=== PATIENT | male | born 1960 | race Hispanic/Latino ===

== ENCOUNTER 2018-07-01 12:38 | Emergency (ER) | payer OTHER, SELFPAY ==
[2018-07-01 13:01] LABS: #Basophils 0.1 thou/uL (0.0-0.2); #Eosinphils 0.1 thou/uL (0.0-0.7); #Monocytes 0.5 thou/uL (0.11-0.59); %Lymphocytes 30.6 % (21.0-51.0); %Monocytes 7.2 % (0.0-10.0); %Neutrophils 60.1 % (42.0-75.0); Hemoglobin 16.5 g/dL (14.0-18.0); Mean Corpuscular HGB CONC 34.3 g/dL (32.0-36.0); Mean Corpuscular Hemoglobin 32.3 pg (27.0-31.0); Mean Corpuscular Volume 94.2 fL (78.0-98.0); Mean Platelet Volume 8.1 fL (7.4-10.4); Platelet Count 214 thou/uL (130-400); RBC Distribution Width 12.7 % (11.5-14.5); White Blood Cell (WBC) Count 6.6 thou/uL (4.8-10.8)
[2018-07-01] MEDS ORDERED: Acetaminophen 325 MG TAB ONE (13:13)
[2018-07-01] MEDS ORDERED: Ibuprofen 800 MG TAB ONE (13:13)
--- NOTE | 2018-07-01 13:22 | RAD ---
CHEST 1 VIEW: Date: 07/01/18 HISTORY: Anxiety. COMPARISON: None. FINDINGS: Normal cardiac silhouette. Pulmonary vessels and hilum are normal. Costophrenic angles are clear. No masses or consolidation. No pneumothorax or osseous abnormalities. IMPRESSION: No acute cardiopulmonary process. POS: [facility]
--- NOTE | 2018-07-01 13:46 | CT ---
NONCONTRAST CT HEAD: Date: 07/01/18 HISTORY: Headache and chest pain. COMPARISON: None available. FINDINGS: There is no evidence of a hemorrhage, acute infarction, mass effect, or midline shift. The ventricula r system is normal in size, shape, and position. There is minimal mucosal thickening seen in a few ethmoidal air cells bilaterally. The mastoid air ce lls are clear. Calvarial structures are intact. IMPRESSION: No acute intracranial abnormality is demonstrated. POS: [facility]
[2018-07-01 13:58] LABS: ALT (SGPT) 50 U/L (8-55); AST (SGOT) 50 U/L (5-34); Albumin 4.8 g/dL (3.5-5.0); Alkaline Phosphatase 88 U/L (40-150); Anion Gap 20 mmol/L (10-20); BUN (Urea Nitrogen) 8 mg/dL (8.4-25.7); Bilirubin, Total 0.6 mg/dL (0.2-1.2); Calc. Creatinine Clearance 0 mL/min (70-130); Carbon Dioxide 20 mmol/L (22-29); Chloride 99 mmol/L (98-107); Estimated GFR-MDRD Greater than 90; Globulin 3.6 g/dL (2.4-3.5); Glucose 92 mg/dL (70-105); Potassium 3.9 mmol/L (3.5-5.1); Protein, Total 8.4 g/dL (6.0-8.3); Sodium 135 mmol/L (136-145)
[2018-07-01 14:02] LABS: Amphetamine Not Detected (NotDetected); Barbiturates Screen Not Detected (NotDetected); Benzodiazepine Screen Not Detected (NotDetected); Cocaine Metabolite Screen Not Detected (NotDetected); Medtox Control Line Valid? VALID (VALID); Medtox Reader # READER 1; Methadone Not Detected (NotDetected); Methamphetamine Not Detected (NotDetected); Opiate Screen Not Detected (NotDetected); Oxycodone Screen Not Detected (NotDetected); Phencyclidine (PCP) Not Detected (NotDetected); THC/Cannabinoid Screen Not Detected (NotDetected); Tricyclic Screen Not Detected (NotDetected)
[2018-07-01 14:52] LABS: Acetaminophen Less than 6.0 mcg/mL (10.0-30.0); Alcohol 278 mg/dL (Less than 10); Lipase 34 U/L (8-78); Salicylate Less than 8.0 mg/dL (15.0-30.0)
== END 2018-07-01 13:28 | disposition home or self-care (01) ==
LOC: ERS 12:38
DX: F10.10 Alcohol abuse, uncomplicated (principal); F17.200 Nicotine dependence, unspecified, uncomplicated
CPT/HCPCS: 70450; 71045; 80053; 80306; 80307; 83690; 84484; 85025; 93005; 96360

== ENCOUNTER 2018-07-06 15:45 | Inpatient (IN) | payer OTHER, SELFPAY ==
[~2018-07-06 15:45] MED LIST: ISOVUE-370 76%-LOCM 1 ML ONE
[2018-07-06] MEDS ORDERED: Ondansetron PF 4 MG/2 ML Vial ONE (16:00)
[2018-07-06] MEDS ORDERED: Ketorolac Tromethamine 30 MG/ML VIAL ONE (16:08)
[2018-07-06 16:30] LABS: #Basophils 0.1 thou/uL (0.0-0.2); #Eosinphils 0.1 thou/uL (0.0-0.7); #Lymphocytes 1.4 thou/uL (1.20-3.40); #Monocytes 0.3 thou/uL (0.11-0.59); #Neutrophils 5.1 thou/uL (1.40-6.50); %Basophils 0.8 % (0.0-1.0); %Eosinophils 0.7 % (0.0-10.0); %Monocytes 4.7 % (0.0-10.0); %Neutrophils 73.7 % (42.0-75.0); Mean Corpuscular HGB CONC 33.3 g/dL (32.0-36.0); Mean Corpuscular Hemoglobin 32.1 pg (27.0-31.0); Mean Corpuscular Volume 96.5 fL (78.0-98.0); Mean Platelet Volume 8.2 fL (7.4-10.4); Platelet Count 142 thou/uL (130-400); RBC Distribution Width 13.1 % (11.5-14.5); Red Blood Cell (RBC) Count 4.67 mill/uL (4.70-6.10)
[2018-07-06 16:46] LABS: INR-International Normal Ratio 0.9; Prothrombin Time 12.7 SEC (12.0-14.7)
[2018-07-06 16:49] LABS: ALT (SGPT) 71 U/L (8-55); AST (SGOT) 55 U/L (5-34); Albumin 4.2 g/dL (3.5-5.0); Alcohol 262 mg/dL (Less than 10); Alkaline Phosphatase 86 U/L (40-150); Anion Gap 16 mmol/L (10-20); BUN (Urea Nitrogen) 5 mg/dL (8.4-25.7); Bilirubin, Total 0.4 mg/dL (0.2-1.2); Calc. Creatinine Clearance 0 mL/min (70-130); Calcium 8.8 mg/dL (7.8-10.44); Carbon Dioxide 25 mmol/L (22-29); Chloride 98 mmol/L (98-107); Estimated GFR-MDRD Greater than 90; Globulin 3.3 g/dL (2.4-3.5); Glucose 132 mg/dL (70-105); Lipase 276 U/L (8-78); Potassium 3.5 mmol/L (3.5-5.1); Protein, Total 7.5 g/dL (6.0-8.3); Sodium 135 mmol/L (136-145)
[2018-07-06 16:58] LABS: Bilirubin Negative (Negative); Blood, Urine Negative (Negative); Clarity CLEAR (Clear); Glucose, Urine (Dipstick) Negative (Negative); Leukocyte Negative (Negative); Nitrite Negative (Negative); Protein, Urine (Dipstick) Trace mg/dL (Neg-Trace); Urobilinogen 0.2 mg/dL (0.2-1.0)
[2018-07-06] MEDS ORDERED: Morphine 4 MG/ML VIAL ONE (17:26)
[2018-07-06] MEDS ORDERED: Ondansetron ODT 4 MG TAB SL PRN (19:40)
[2018-07-06] MEDS ORDERED: Sodium Chloride 0.9% 1,000 ML IV SCH (19:40)
[2018-07-06] MEDS ORDERED: Ondansetron PF 4 MG/2 ML Vial IVP PRN (19:40)
[2018-07-06] MEDS ORDERED: Acetaminophen 650 MG Suppository PR PRN (19:44)
[2018-07-06] MEDS ORDERED: Ondansetron ODT 4 MG TAB PO PRN (19:44)
[2018-07-06] MEDS ORDERED: Senokot S 8.6-50 MG TAB PO PRN (19:44)
[2018-07-06] MEDS ORDERED: Guaifenesin DM 100-10/5 ML UDCUP PO PRN (19:44)
[2018-07-06] MEDS ORDERED: Acetaminophen 325 MG TAB PO PRN (19:44)
[2018-07-06] MEDS ORDERED: Diazepam 5 MG TAB PO PRN (19:49)
[2018-07-06] MEDS ORDERED: Thiamine HCl 200 MG/2 ML VIAL IM SCH (20:00)
[2018-07-06] MEDS ORDERED: Pantoprazole 40 MG VIAL IVP SCH (20:00)
[2018-07-06] MEDS ORDERED: Diazepam 5 MG TAB PO SCH (20:00)
[2018-07-06] MEDS: Sodium Chloride 0.9% 1,000 ML IV SCH (20:33)
[2018-07-06] MEDS: Ketorolac Tromethamine 30 MG/ML VIAL IVP PRN (20:39)
[2018-07-06] MEDS: Ondansetron PF 4 MG/2 ML Vial IVP PRN (20:39)
[2018-07-06 21:03] VITALS: BMI 26.4
[2018-07-06 21:18] LABS: Amphetamine Not Detected (NotDetected); Barbiturates Screen Not Detected (NotDetected); Benzodiazepine Screen Detected (NotDetected); Cocaine Metabolite Screen Not Detected (NotDetected); Medtox Reader # READER 4; Methadone Not Detected (NotDetected); Methamphetamine Not Detected (NotDetected); Opiate Screen Detected (NotDetected); Oxycodone Screen Not Detected (NotDetected); Phencyclidine (PCP) Not Detected (NotDetected); THC/Cannabinoid Screen Not Detected (NotDetected); Tricyclic Screen Not Detected (NotDetected)
[2018-07-06 21:24] LABS: Medtox Control Line Valid? VALID (VALID)
--- NOTE | 2018-07-06 22:15 | CT ---
CT ABDOMEN AND PELVIS WITH CONTRAST: 07/06/18 Multiple axial tomograms obtained through the abdomen and pelvis with IV enhancement. INDICATIONS: Abdominal pain. Nausea, vomiting. No comparison. IMPRESSION: Acute pancreatitis. FINDINGS: Lung bases clear. Liver shows evidence of fatty infiltration with low attenuation. There is a 1 cm low density focus in the left lobe of the liver probably representing small hepatic cyst; however, followup is recommende d or confirmation of cystic character with ultrasound is recommended. There is mildly distended gallb ladder. Consider gallbladder ultrasound to rule out gallstones. Spleen unremarkable. There is a small fixed sliding diaphragmatic hernia. There is abnormal density involving the wall of the distal esophagus at the EG junction with abnormal density involving the wall of the stomach at th e cardia extending from the EG junction. This finding is very suspicious for neoplasm. Recommend endo scopy. There is inflammatory haziness surrounding the neck and head of the pancreas consistent with the hist ory of pancreatitis. The gallbladder is mildly distended. No evidence of pericholecystic inflammation. Gallstones may not be apparent on CT. Adrenal glands and kidneys unremarkable. Bowel loops unremarkable. Appendix appears normal. Images th rough pelvis unremarkable. Aorta normal caliber. IMPRESSION: 1. Small fixed sliding diaphragmatic hernia. Abnormal mural thickening involving the distal esop hagus at the EG junction with abnormal density extending into the wall of the cardia of the stomach. Neoplasm should be excluded. Recommend endoscopy. 2. Inflammatory haziness surrounding the head and neck of the pancreas consistent with acute weldon creatitis. 3. Evidence of fatty infiltration of the liver. Tiny low density lesion in the left lobe of the liver probably cyst. POS: [facility]
[2018-07-06] MEDS: Morphine 4 MG/ML VIAL SLOW IVP PRN (23:50)
--- NOTE | 2018-07-07 00:46 | HP ---
PRIMARY CARE PHYSICIAN: Ally Mclean. CHIEF COMPLAINT: Abdominal pain, nausea, and vomiting. HISTORY OF PRESENT ILLNESS: This is a 57-year-old male who comes in with history of nausea, vomiting, and abdominal pain. The patient's history is variable every time he talks to different people, so it is hard to know exactly what the truth of it is, but he was seen in our emergency room 5 days ago. At that time, he was complaining of feeling shaky and feeling anxious and was asking for medication for shakiness. He had fluids in the emergency room, felt better, and was discharged home with a Librium taper to try and get him off alcohol. At that time, he reportedly had been drinking heavily for about 3 days and it stopped before came in. He had a negative lipase at that time. His alcohol level is 278, and he had a negative urine drug screen at that time as well. The patient came back in today reporting that he has had worsening abdominal pain. He thinks the pain has been going on now for 5 days or so, but getting worse over the last couple of days. He said he has had some nausea and vomiting, maybe 6 or 7 times today or yesterday, he was not able to say it specifically. The patient reports to me that he bought a 12 pack of beer and started drinking it over the weekend and that he did not regularly drink alcohol, reportedly he had 5 drinks today. Stated he started drinking alcohol a week ago, he does not know why, he cannot give a reason why he suddenly started drinking so much. In the emergency room, he was found to have a new elevation in his lipase compared to last time. Lipase now up to 276. Alcohol level remains about 262. He did report drinking about 5 beers today. The rest of his lab work was fairly unremarkable. His AST and ALT were minimally elevated at 55 and 71. Creatine kinase was 369. The patient got a dose of Toradol and a dose of morphine in the emergency room. He still complains of severe abdominal pain and is asking for more pain medication right now, though he appeared comfortably sleeping on the bed before I entered the room. PAST MEDICAL HISTORY: None. PAST SURGICAL HISTORY: None. PSYCHIATRIC HISTORY: None. SOCIAL HISTORY: See HPI. The patient currently smokes cigarettes and denies illicit drug use. He is . He states his lives in [place]. He lives with some people here he is not related to. FAMILY HISTORY: No known medical problems in his family. ALLERGIES: NO KNOWN DRUG ALLERGIES. CURRENT MEDICATIONS: None. REVIEW OF SYSTEMS: CONSTITUTIONAL: The patient answered yes to almost every review of systems question. Constitutionally, he does report some chills and thinks he had a fever earlier. He reports blurred vision and maybe some double vision. ENT: He reports nasal drainage, sore throat, and congestion. CARDIOVASCULAR: He reports chest pains on and off. PULMONARY: He reports coughing productive of green mucus for unknown period of time and some shortness of breath. GASTROINTESTINAL: See HPI. He reports alternating diarrhea and constipation, but no hematochezia. GENITOURINARY: No dysuria or hematuria. MUSCULOSKELETAL: He reports generalized muscle aches and joint pains over his whole body. SKIN: No rashes or lesions noted. NEUROLOGIC: He reports numbness and tingling in both hands. PHYSICAL EXAMINATION: VITAL SIGNS: Blood pressure 146/105, pulse 91, respirations 16, temperature 98.3, and O2 saturation 97% on room air. GENERAL: This is a well-developed, obese, male, in no acute distress, lying there until I started talking to him, then he started complaining of severe pain, would wince with pain at the time I got near his abdomen even before I would touch it. HEENT: Pupils equal, round, and reactive to light. Oropharynx clear without lesions, erythema, or exudate. The patient smells heavily of alcohol. HEART: Regular rate and rhythm. No murmurs, rubs, or gallops. LUNGS: Clear to auscultation bilaterally. No wheezes, crackles, or rhonchi. NECK: Supple. No lymphadenopathy. No thyroid nodules or enlargement. No JVD. ABDOMEN: Soft. He has severe tenderness to palpation in the epigastric region, though he reports pain with palpation everywhere. He does have some guarding in the midepigastric region. No rebound tenderness. He has normoactive bowel sounds. No masses palpable. EXTREMITIES: No clubbing, cyanosis, or edema. Good peripheral pulses. SKIN: No rashes or lesions noted. NEUROLOGIC: He appears to have intact strength in all extremities. No facial droop. PSYCHIATRIC: The patient is alert and oriented x3. LABORATORY DATA: CBC grossly normal. Coagulation profile normal. Complete metabolic panel notable for a sodium of 135, AST 55, ALT 71, the rest is relatively normal. Lipase was 276 today. Creatine kinase 369. Brain natriuretic peptide was negative. Urinalysis was negative for infection. Plasma alcohol was 262. The patient did have a chest x-ray and brain CT done in his ER visit 5 days ago. Chest x-ray was negative for infection. CT of the brain showed no acute intracranial abnormalities. ASSESSMENT: 1. Acute pancreatitis with severe abdominal pain. Uncertain if the patient is able to give a reliable history at this point, however, given the severity of his pain that he is reporting, I will go ahead and get a CT of the abdomen with contrast to make sure he does not have any evidence of pseudocyst in the pancreas or evidence of necrosis or significant infection that would require antibiotics. For now, we will keep him n.p.o. We will give IV fluids. We will give IV pain medications and we will consult Gastroenterology in the morning. 2. Alcohol abuse. The patient is likely a chronic alcoholic, though his history is not consistent between providers and with his physical findings. I will go ahead and put him on ASE protocol to make certain that any withdrawal symptoms are treated and we will give him vitamin supplementation. 3. Gastrointestinal prophylaxis. Put the patient on Protonix daily IV for now. 4. Deep venous thrombosis prophylaxis. Put the patient on Lovenox subcu and sequential compression devices. 5. Code status. The patient is a full code. Should he be incapacitated, his would be his medical decision maker, her name is Simran Moser. Job ID: [id number]
[2018-07-07] MEDS ORDERED: Diazepam 5 MG TAB PO PRN (04:00)
[2018-07-07] MEDS: Ondansetron PF 4 MG/2 ML Vial IVP PRN ×2 (04:31→16:30)
[2018-07-07] MEDS: Ketorolac Tromethamine 30 MG/ML VIAL IVP PRN ×4 (04:31→23:31)
[2018-07-07 05:27] LABS: #Eosinphils 0.1 thou/uL (0.0-0.7); #Lymphocytes 1.2 thou/uL (1.20-3.40); #Monocytes 0.3 thou/uL (0.11-0.59); %Basophils 0.5 % (0.0-1.0); %Eosinophils 0.9 % (0.0-10.0); %Lymphocytes 12.4 % (21.0-51.0); %Monocytes 3.2 % (0.0-10.0); Hemoglobin 13.6 g/dL (14.0-18.0); Mean Corpuscular HGB CONC 33.2 g/dL (32.0-36.0); Mean Corpuscular Volume 96.4 fL (78.0-98.0); Mean Platelet Volume 8.8 fL (7.4-10.4); Platelet Count 116 thou/uL (130-400); Platelet Morphology Comment Appears Decreased; RBC Distribution Width 13.1 % (11.5-14.5); Red Blood Cell (RBC) Count 4.26 mill/uL (4.70-6.10); White Blood Cell (WBC) Count 9.6 thou/uL (4.8-10.8)
[2018-07-07 05:37] LABS: Anion Gap 12 mmol/L (10-20); BUN (Urea Nitrogen) 7 mg/dL (8.4-25.7); Calc. Creatinine Clearance 117 mL/min (70-130); Calcium 8.3 mg/dL (7.8-10.44); Carbon Dioxide 26 mmol/L (22-29); Chloride 101 mmol/L (98-107); Estimated GFR-MDRD Greater than 90; Glucose 134 mg/dL (70-105); Potassium 3.6 mmol/L (3.5-5.1); Sodium 135 mmol/L (136-145)
[2018-07-07] MEDS: Sodium Chloride 0.9% 1,000 ML IV SCH ×3 (06:22→17:07)
[2018-07-07] MEDS: Multivitamin W/ Minerals 1 TAB PO SCH (07:46)
[2018-07-07] MEDS: Folic Acid 1 MG TAB PO SCH (07:46)
[2018-07-07] MEDS: Thiamine 100 MG TAB PO SCH (07:46)
[2018-07-07] MEDS: Magnesium Oxide 400 MG TAB PO SCH (07:46)
[2018-07-07] MEDS: Morphine 4 MG/ML VIAL SLOW IVP PRN ×4 (07:47→21:56)
[2018-07-07] MEDS: Pantoprazole 40 MG VIAL IVP SCH (07:48)
[2018-07-07] MEDS: Enoxaparin Sodium 40 MG/0.4 ML SYRINGE SC SCH (08:09)
--- NOTE | 2018-07-07 09:14 | PDOC.PN ---
- Subjective Encounter Start Date: 07/07/18 Encounter Start Time: 12:00 Subjective: Patient didn't sleep well last night. States abdominal pain is -: even worse. No N/V. No fever. Mild shakiness. - Objective Resuscitation Status - Order Detail: 07/06/18 18:41 Resuscitation Status Routine Resuscitation Status: FULL: Full Resuscitation MAR Reviewed: Yes Vital Signs & Weight: Vital Signs (12 hours) Temp Pulse Resp BP BP BP Pulse Ox 07/07/18 06:57 98 F 80 20 167/93 H 96 07/07/18 06:00 98.6 F 95 20 159/86 H 159/86 H 07/07/18 02:33 98.8 F 95 20 167/84 H 95 07/07/18 02:30 167/84 H Weight Weight 168 lb 9 oz Result Diagrams: 07/07/18 04:22 07/07/18 04:22 Phys Exam - Physical Examination Constitutional: NAD HEENT: moist MMs Respiratory: no wheezing, no rales, no rhonchi Cardiovascular: RRR, no significant murmur Gastrointestinal: soft, positive bowel sounds TTP, mostly in JENNIFER, LUQ Musculoskeletal: no edema Neurological: non-focal, moves all 4 limbs mild shakiness of hands Psychiatric: normal affect, A&O x 3 Dx/Plan (1) Acute alcoholic pancreatitis Code(s): K85.20 - ALCOHOL INDUCED ACUTE PANCREATITIS WITHOUT NECROSIS OR INFCT Status: Acute Qualifiers: Acute pancreatitis complication: no infection or necrosis Qualified Code(s) : K85.20 - Alcohol induced acute pancreatitis without necrosis or infection Comment: uncomplicated, continue bowel rest, recheck lab, GI consult pending (2) Esophageal abnormality Code(s): K22.9 - DISEASE OF ESOPHAGUS, UNSPECIFIED Status: Acute Comment: density at GE junction into wall of cardia of stomach, concern for possible neoplasm, needs EGD eventually (3) Alcohol abuse Code(s): F10.10 - ALCOHOL ABUSE, UNCOMPLICATED Status: Acute Comment: ASE protocol for any withdrawal symptoms, UDS with only meds given here (4) Fatty liver Code(s): K76.0 - FATTY (CHANGE OF) LIVER, NOT ELSEWHERE CLASSIFIED Status: Acute Comment: likely due to alcohol abuse - Plan cont current plan of care, DVT proph w/lovenox, DVT proph w/SCDs * . - Discharge Day Encounter end time: 12:10
[2018-07-07] MEDS ORDERED: Melatonin 3 MG TAB PO PRN (12:45)
[2018-07-08] MEDS: Sodium Chloride 0.9% 1,000 ML IV SCH ×3 (02:32→22:59)
[2018-07-08] MEDS: Morphine 4 MG/ML VIAL SLOW IVP PRN (03:35)
[2018-07-08] MEDS: Ketorolac Tromethamine 30 MG/ML VIAL IVP PRN ×2 (06:06→15:22)
[2018-07-08] MEDS: Pantoprazole 40 MG VIAL IVP SCH (07:49)
[2018-07-08] MEDS: Enoxaparin Sodium 40 MG/0.4 ML SYRINGE SC SCH ×2 (07:50→13:40)
--- NOTE | 2018-07-08 08:37 | CON ---
DATE OF CONSULTATION: 07/07/2018 REASON FOR CONSULTATION: Abdominal pain, nausea, vomiting, and acute pancreatitis. HISTORY OF PRESENT ILLNESS: Javid Moser is a 57-year-old Latin-[place] male, hospitalized in the ER with abdominal pain, nausea, and vomiting. The patient was found to have evidence of acute pancreatitis in the ER. He was sent for abdominal CAT scan. The CAT scan of the abdomen shows fatty liver and also peripancreatic inflammatory changes. Also some questionable mass or tiny density lesion in the GE junction on the gastric body. The patient at this time is n.p.o. He is currently having some abdominal pain, but no nausea, no vomiting. He is on IV morphine. Although he complains of abdominal pain, he appears very comfortable. He is somewhat worried about his clinical illness and keeps asking whether he has any cancer. The patient has no more nausea and no more vomiting. The patient tells me that he has been having abdominal pain over the last 5 days. Pain was in epigastric area, going towards the back. He has no nausea, vomiting to start with, but had vomiting yesterday. The patient admits to drinking two 6-packs of beer every day. In fact, serum alcohol level is 262. The patient drank 5 beers yesterday. No history of drug abuse. No past history of pancreatitis. He has no relevant history. ALLERGIES: NONE. SOCIAL HISTORY: The patient smokes one-half packet of cigarettes per day. He drinks alcohol, up to 6 packs of beer every day. No history of drug abuse. MEDICAL ILLNESSES: None. SURGERIES: None. NEUROPSYCHIATRY: No history of depression, anxiety. FAMILY HISTORY: Unremarkable. MEDICATIONS: None at home. REVIEW OF SYSTEMS: CONSTITUTIONAL: No history of weight loss. Has good energy and strength. No history of any fever or chills. HEENT: No double vision. No pain in eyes. No ear pain. No bleeding from ear or nose. THROAT: No dysphagia. No painful swallowing. LUNGS: No chronic coughing. No hemoptysis, dyspnea. CARDIOVASCULAR: No chest pain. No palpitations. No dyspnea, orthopnea, or PND. GASTROINTESTINAL: As in history of present illness. GENITOURINARY: Unremarkable. MUSCULOSKELETAL: Unremarkable. ENDOCRINE: Unremarkable. NEUROLOGIC: Unremarkable. PHYSICAL EXAMINATION: GENERAL: The patient appears very comfortable, having complaints of severe abdominal pain. He is in no distress. VITAL SIGNS: Stable. Afebrile. Pulse is 71, blood pressure is 176/93. HEENT: Conjunctivae clear. NECK: Supple. No adenitis or thyromegaly noted. CARDIOVASCULAR SYSTEM: First and second heart sounds heard. LUNGS: Clear to auscultation. ABDOMEN: Soft and nondistended. Abdomen is tender over the epigastric area, periumbilical area and also left quadrant. There is no rebound or guarding. No organomegaly or masses. Bowel sounds normal. EXTREMITIES: Reveal no edema. LABORATORY DATA: From today, CBC; WBC 9600, hemoglobin 13.6, hematocrit 41, MCV 96.4, platelet count is 116,000, polymorphs 83, lymphocytes 12, monocytes 3. Chemistry panel; sodium 135, potassium 3.6, chloride 101, bicarb 26, BUN is 7, creatinine is 0.77, glucose 134, calcium 8.3, AST 55, ALT 71, alkaline phosphatase is 86, lipase is 276. Abdominal CAT scan shows peripancreatic edema, fatty liver, and also what appears to be thickening of the GE junction and also gastric body. CLINICAL IMPRESSION: 1. Abdominal pain, nausea, vomiting and evidence of pancreatitis on lab data. The lipase is really not that high. 2. History of chronic alcohol abuse. 3. Abnormal CAT scan of abdomen, needs evaluation with EGD. RECOMMENDATIONS: 1. N.p.o. 2. IV fluids. 3. Analgesics. 4. Follow up serum lipase. 5. Possibly EGD tomorrow. Job ID: [id number]
--- NOTE | 2018-07-08 09:29 | PDOC.PN ---
- Subjective Encounter Start Date: 07/08/18 Encounter Start Time: 10:30 Subjective: Patient reports some improvement in his abdominal pain. No N/V. -: EGD planned for today. - Objective Resuscitation Status - Order Detail: 07/06/18 18:41 Resuscitation Status Routine Resuscitation Status: FULL: Full Resuscitation MAR Reviewed: Yes Vital Signs & Weight: Vital Signs (12 hours) Temp Pulse Resp BP BP Pulse Ox 07/08/18 07:45 163/73 H 07/08/18 07:27 99.1 F 75 18 163/73 H 97 07/08/18 04:00 98.9 F 81 16 152/89 H 152/89 H 95 07/08/18 00:00 98.8 F 74 16 150/86 H 150/86 H 96 Weight Weight 168 lb 9 oz I&O: 07/07/18 07/08/18 07/09/18 06:59 06:59 06:59 Intake Total 1000 Output Total 1050 Balance -50 Result Diagrams: 07/07/18 04:22 07/07/18 04:22 Phys Exam - Physical Examination Constitutional: NAD HEENT: moist MMs Respiratory: no wheezing, no rales, no rhonchi Cardiovascular: RRR, no significant murmur Gastrointestinal: soft, positive bowel sounds TTP JENNIFER, much improved, no guarding Neurological: non-focal, moves all 4 limbs Psychiatric: normal affect, A&O x 3 Dx/Plan (1) Acute alcoholic pancreatitis Code(s): K85.20 - ALCOHOL INDUCED ACUTE PANCREATITIS WITHOUT NECROSIS OR INFCT Status: Acute Qualifiers: Acute pancreatitis complication: no infection or necrosis Qualified Code(s) : K85.20 - Alcohol induced acute pancreatitis without necrosis or infection Comment: uncomplicated, continue bowel rest, recheck lab, Dr. Smith following (2) Esophageal abnormality Code(s): K22.9 - DISEASE OF ESOPHAGUS, UNSPECIFIED Status: Acute Comment: density at GE junction into wall of cardia of stomach, concern for possible neoplasm, needs EGD (3) Alcohol abuse Code(s): F10.10 - ALCOHOL ABUSE, UNCOMPLICATED Status: Acute Comment: ASE protocol for any withdrawal symptoms, UDS with only meds given here (4) Fatty liver Code(s): K76.0 - FATTY (CHANGE OF) LIVER, NOT ELSEWHERE CLASSIFIED Status: Acute Comment: likely due to alcohol abuse - Plan cont current plan of care, out of bed/ambulate, DVT proph w/lovenox, DVT proph w /SCDs recheck Lipase and LFTs -: If negative can start transitioning to oral fluids and pain meds * . - Discharge Day Encounter end time: 10:40
[2018-07-08 11:30] LABS: ALT (SGPT) 55 U/L (8-55); AST (SGOT) 43 U/L (5-34); Albumin 3.6 g/dL (3.5-5.0); Alkaline Phosphatase 81 U/L (40-150); Bilirubin, Direct 0.3 mg/dL (0.1-0.3); Bilirubin, Total 0.8 mg/dL (0.2-1.2); Protein, Total 6.5 g/dL (6.0-8.3)
[2018-07-08] MEDS ORDERED: Promethazine HCl 25 MG/ML VIAL IM PRN (12:51)
[2018-07-08] MEDS ORDERED: Promethazine HCl 25 MG/ML VIAL SLOW IVP PRN (12:51)
[2018-07-08] MEDS ORDERED: Ondansetron HCl/PF 4 MG/2 ML Vial IVP PRN (12:51)
[2018-07-08] MEDS ORDERED: Fentanyl 100 MCG/2 ML VIAL ONE (13:02)
--- NOTE | 2018-07-08 13:34 | OP ---
DATE OF PROCEDURE: 07/08/2018 PREOPERATIVE DIAGNOSES: Abdominal pain, abnormal CAT scan of abdomen showing thickening of the GE junction almost to the gastric body. The patient is undergoing EGD. POSTOPERATIVE DIAGNOSES: 1. Irregular Z-line. No esophagitis or any esophageal mass seen. 2. Hiatal hernia. 3. Normal stomach and duodenum. PROCEDURE PERFORMED: Esophagogastroduodenoscopy with biopsy. DESCRIPTION OF PROCEDURE: The patient was placed on his left lateral position and was given sedation by Anesthesia Department. A [employer]ax video gastroscope under direct vision passed down the oropharynx to the GE junction into the stomach and subsequently into the descending duodenum. The esophageal mucosa appeared normal. The GE junction, no pathology. There is no esophageal mass. He does have irregular Z-line was biopsied. Retroflexion failed to show any pathology in the fundus or the cardia. The gastric body, gastric antrum, no pathology seen. The duodenal bulb and descending duodenum, no pathology. The stomach decompressed and the scope removed. RECOMMENDATION: 1. Discontinue n.p.o. 2. Clear liquid diet. 3. Advance diet as tolerated. Job ID: [id number]
[2018-07-08] MEDS: Thiamine 100 MG TAB PO SCH (13:37)
[2018-07-08] MEDS: Magnesium Oxide 400 MG TAB PO SCH (13:37)
[2018-07-08] MEDS: Multivitamin W/ Minerals 1 TAB PO SCH (13:37)
[2018-07-08] MEDS: Folic Acid 1 MG TAB PO SCH (13:39)
[2018-07-08] MEDS ORDERED: Lidocaine 1% PF 5 ML VIAL ONE (14:24)
[2018-07-08] MEDS ORDERED: PROPOFOL 200 MG/20 ML VIAL ONE (14:24)
[2018-07-08] MEDS: HYDROcodone/Acetaminophen 7.5/325 mg Tablet PO PRN ×2 (18:21→22:57)
--- NOTE | 2018-07-08 18:35 | PRG ---
DATE OF SERVICE: 07/08/2018 SUBJECTIVE: This is a 57-year-old male with history of chronic alcohol abuse, hospitalized with abdominal pain and nausea and was found to have pancreatitis. Serum lipase was 276, has come back to normal today. He had EGD done this afternoon this afternoon, which revealed no pathology except a hiatus hernia. The patient is doing well. He is very nervous and anxious and he continues to complain of abdominal pain; however, the abdominal exam revealed very benign. At this time, he wants to eat. PHYSICAL EXAMINATION: GENERAL: Appears comfortable. VITAL SIGNS: Stable. CARDIOVASCULAR SYSTEM/LUNGS: Within normal limits. ABDOMEN: Soft. Abdomen is nontender. No organomegaly or masses. LABORATORY DATA: Serum lipase is back to normal. RECOMMENDATION: Regular diet. If he does well, consider discharge home tomorrow. I also had a long talk with the patient and explained to him that he restrain from binging any more alcohol because of risk of severe pancreatitis in the near future. Job ID: [id number]
[2018-07-08] MEDS: Zolpidem Tartrate 5 MG TAB PO PRN (20:48)
[2018-07-09] MEDS: HYDROcodone/Acetaminophen 7.5/325 mg Tablet PO PRN ×4 (05:13→20:38)
[2018-07-09] MEDS: Sodium Chloride 0.9% 1,000 ML IV SCH ×2 (09:05→18:06)
[2018-07-09] MEDS: Pantoprazole 40 MG VIAL IVP SCH (09:06)
[2018-07-09] MEDS: Thiamine 100 MG TAB PO SCH (09:06)
[2018-07-09] MEDS: Folic Acid 1 MG TAB PO SCH (09:06)
[2018-07-09] MEDS: Magnesium Oxide 400 MG TAB PO SCH (09:06)
[2018-07-09] MEDS: Multivitamin W/ Minerals 1 TAB PO SCH (09:07)
[2018-07-09] MEDS: Enoxaparin Sodium 40 MG/0.4 ML SYRINGE SC SCH (09:07)
--- NOTE | 2018-07-09 12:12 | PDOC.PN ---
- Subjective Encounter Start Date: 07/09/18 Encounter Start Time: 08:30 -: old records requested/rev Patient seen and examined. No new complaints. No overnight events - Objective Resuscitation Status - Order Detail: 07/06/18 18:41 Resuscitation Status Routine Resuscitation Status: FULL: Full Resuscitation MAR Reviewed: Yes Vital Signs & Weight: Vital Signs (12 hours) Temp Pulse Resp BP BP Pulse Ox 07/09/18 11:12 97.5 F L 71 18 157/94 H 99 07/09/18 09:04 151/89 H 94 L 07/09/18 08:00 97.7 F 70 20 151/89 H 94 L 07/09/18 05:54 98.4 F 73 16 165/88 H 98 07/09/18 04:00 165/88 H Weight Weight 168 lb 9 oz I&O: 07/08/18 07/09/18 07/10/18 06:59 06:59 06:59 Intake Total 1000 1550 Output Total 1050 Balance -50 1550 Result Diagrams: 07/07/18 04:22 07/07/18 04:22 Phys Exam - Physical Examination Constitutional: NAD HEENT: PERRLA, moist MMs, sclera anicteric Neck: no JVD, supple Respiratory: no wheezing, no rales, no rhonchi Cardiovascular: RRR, no significant murmur, no rub Gastrointestinal: soft, non-tender, no distention, positive bowel sounds Musculoskeletal: no edema, pulses present Neurological: non-focal, normal sensation, moves all 4 limbs Lymphatic: no nodes Psychiatric: normal affect, A&O x 3 Skin: no rash, normal turgor Dx/Plan (1) Abnormal LFTs Code(s): R94.5 - ABNORMAL RESULTS OF LIVER FUNCTION STUDIES Status: Acute (2) Acute alcoholic pancreatitis Code(s): K85.20 - ALCOHOL INDUCED ACUTE PANCREATITIS WITHOUT NECROSIS OR INFCT Status: Acute Qualifiers: Acute pancreatitis complication: no infection or necrosis Qualified Code(s) : K85.20 - Alcohol induced acute pancreatitis without necrosis or infection Comment: uncomplicated, continue bowel rest, recheck lab, Dr. Smith following (3) Esophageal abnormality Code(s): K22.9 - DISEASE OF ESOPHAGUS, UNSPECIFIED Status: Acute Comment: density at GE junction into wall of cardia of stomach, concern for possible neoplasm, needs EGD (4) Alcohol abuse Code(s): F10.10 - ALCOHOL ABUSE, UNCOMPLICATED Status: Chronic Comment: ASE protocol for any withdrawal symptoms, UDS with only meds given here (5) Fatty liver Code(s): K76.0 - FATTY (CHANGE OF) LIVER, NOT ELSEWHERE CLASSIFIED Status: Chronic Comment: likely due to alcohol abuse - Plan cont current plan of care * medication reviewed as below * symptomatic treatment * continue current management today * will consider discharge tomorrow. Review of Systems - Review of Systems ENT: negative: Ear Pain, Ear Discharge, Nose Pain, Nose Discharge, Nose Congestion, Mouth Pain, Mouth Swelling, Throat Pain, Throat Swelling, Other Respiratory: negative: Cough, Dry, Shortness of Breath, Hemoptysis, SOB with Excertion, Pleuritic Pain, Sputum, Wheezing Cardiovascular: negative: chest pain, palpitations, orthopnea, paroxysmal nocturnal dyspnea, edema, light headedness, other Gastrointestinal: negative: Nausea, Vomiting, Abdominal Pain, Diarrhea, Constipation, Melena, Hematochezia, Other Genitourinary: negative: Dysuria, Frequency, Incontinence, Hematuria, Retention , Other Musculoskeletal: negative: Neck Pain, Shoulder Pain, Arm Pain, Back Pain, Hand Pain, Leg Pain, Foot Pain, Other - Medications/Allergies Allergies/Adverse Reactions: Allergies Allergy/AdvReac Type Severity Reaction Status Date / Time No Known Allergies Allergy Verified 07/06/18 21:01 Medications: Current Medications Acetaminophen (Tylenol) 650 mg PO Q4H PRN PRN Reason: Headache/Fever/Mild Pain (1-3) Acetaminophen (Tylenol) 650 mg HI Q4H PRN PRN Reason: Headache/Fever/Mild Pain (1-3) Hydrocodone Bitart/Acetaminophen ([place] 7.5/325) 1 tab PO Q4H PRN PRN Reason: Mild Pain (1-3) Hydrocodone Bitart/Acetaminophen ([place] 7.5/325) 2 tab PO Q4H PRN PRN Reason: Moderate Pain (4-6) Last Admin: 07/09/18 05:13 Dose: 2 tab Diazepam (Valium) 5 mg PO Q4H PRN PRN Reason: FOR ASE 10 OR GREATER Enoxaparin Sodium (Lovenox) 40 mg SC 0900 ANGIE Last Admin: 07/09/18 09:07 Dose: 40 mg Folic Acid (Folvite) 1 mg PO DAILY [facility] Last Admin: 07/09/18 09:06 Dose: 1 mg Guaifenesin/Dextromethorphan (Robitussin Dm) 15 ml PO Q4H PRN PRN Reason: Cough Sodium Chloride (Normal Saline 0.9%) 1,000 mls @ 100 mls/hr IV .Q10H [facility] Last Admin: 07/09/18 09:05 Dose: 1,000 mls Iron/Minerals/Multivitamins (Theragran M) 1 tab PO DAILY [facility] Last Admin: 07/09/18 09:07 Dose: 1 tab Ketorolac Tromethamine (Toradol) 15 mg IVP Q6H PRN PRN Reason: Pain Stop: 07/11/18 19:45 Last Admin: 07/08/18 15:22 Dose: 15 mg Magnesium Oxide (Magnesium Oxide) 400 mg PO DAILY [facility] Last Admin: 07/09/18 09:06 Dose: 400 mg Melatonin (Melatonin) 3 mg PO HS PRN PRN Reason: Insomnia Last Admin: 07/07/18 20:39 Dose: 3 mg Morphine Sulfate (Morphine) 4 mg SLOW IVP Q4H PRN PRN Reason: Severe Pain (7-10) Last Admin: 07/08/18 03:35 Dose: 4 mg Ondansetron HCl (Zofran Odt) 4 mg PO Q6H PRN PRN Reason: Nausea/Vomiting Ondansetron HCl (Zofran) 4 mg IVP Q6H PRN PRN Reason: Nausea/Vomiting Last Admin: 07/07/18 16:30 Dose: 4 mg Pantoprazole Sodium (Protonix) 40 mg IVP DAILY [facility] Last Admin: 07/09/18 09:06 Dose: 40 mg Senna/Docusate Sodium (Senokot S) 2 tab PO BID PRN PRN Reason: Constipation Thiamine HCl (Thiamine) 100 mg PO DAILY [facility] Last Admin: 07/09/18 09:06 Dose: 100 mg Zolpidem Tartrate (Ambien) 5 mg PO HSPRN PRN PRN Reason: Insomnia Last Admin: 07/08/18 20:48 Dose: 5 mg
--- NOTE | 2018-07-09 15:55 | PRG ---
DATE OF SERVICE: 07/09/2018 SUBJECTIVE: This is a 57-year-old male, with history of chronic alcohol abuse, hospitalized with abdominal pain, nausea, vomiting. He was found to have evidence of pancreatitis. He also has mildly elevated LFTs, mostly from fatty liver due to alcohol abuse. The patient's abdominal CAT scan revealed some density over the GE junction. However, an EGD done yesterday did not show any pathology. He does have hiatus hernia. He has been on a regular diet since yesterday and he is tolerating diet. No abdominal pain. No nausea or vomiting. PHYSICAL EXAMINATION: GENERAL: Appears comfortable. VITAL SIGNS: Stable. CARDIOVASCULAR SYSTEM/LUNGS: Within normal limits. ABDOMEN: Soft. No organomegaly. No tenderness. No masses. CLINICAL IMPRESSION: 1. Alcoholic pancreatitis, resolved. 2. Abnormal LFTs due to fatty liver, caused by alcohol abuse. 3. Hiatus hernia and no esophageal mass seen. RECOMMENDATIONS: From GI standpoint, he can be discharged home. He is advised to not to take any alcohol. Job ID: [id number]
[2018-07-09] MEDS: Zolpidem Tartrate 5 MG TAB PO PRN (23:40)
[2018-07-10] MEDS: Sodium Chloride 0.9% 1,000 ML IV SCH (03:50)
[2018-07-10] MEDS: HYDROcodone/Acetaminophen 7.5/325 mg Tablet PO PRN (07:50)
[2018-07-10] MEDS: Enoxaparin Sodium 40 MG/0.4 ML SYRINGE SC SCH (07:50)
[2018-07-10] MEDS: Magnesium Oxide 400 MG TAB PO SCH (07:51)
[2018-07-10] MEDS: Thiamine 100 MG TAB PO SCH (07:51)
[2018-07-10] MEDS: Multivitamin W/ Minerals 1 TAB PO SCH (07:51)
[2018-07-10] MEDS: Folic Acid 1 MG TAB PO SCH (07:51)
[2018-07-10] MEDS: Pantoprazole 40 MG VIAL IVP SCH (07:52)
[2018-07-10 10:02] VITALS: BP 165/82; TEMP 97.8
--- NOTE | 2018-07-10 10:07 | DIS ---
DATE OF ADMISSION: 07/06/2018 DATE OF DISCHARGE: 07/10/2018 PRIMARY CARE PHYSICIAN: [facility] Call admission. DISCHARGE DISPOSITION: Home. PRIMARY DISCHARGE DIAGNOSES: Acute alcoholic pancreatitis, improved. Abnormal electrolytes, corrected. Ng esophagus. Abnormal LFT due to fatty liver. SECONDARY DISCHARGE DIAGNOSES: Alcohol abuse. PRIMARY PROCEDURE/OPERATION: Esophagogastroduodenoscopy was done by Dr. Smith and found with esophagitis. 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 RADIOLOGICAL INVESTIGATION: Abdomen and pelvis CT scan showed pancreatitis and fatty liver. SIGNIFICANT LABORATORY DATA: Hemoglobin 13.6, platelet 116, and WBC 9.6. INR 0.9. Sodium 135, creatinine 0.77, AST 43, ALT 55, alkaline phosphatase 81, albumin 3.6, and lipase 47. Cardiac enzyme negative. Urinalysis normal. Urine drug screen positive for benzodiazepines and opiates. Alcohol level 262. DISCHARGE MEDICATIONS: 1. Protonix 40 mg p.o. daily. 2. Folic acid 1 mg p.o. daily. 3. Thiamine 100 mg p.o. daily. 4. Multivitamin 1 tablet p.o. daily. CONTRAINDICATION: None. CODE STATUS: Full code. INPATIENT SUBGRADE ROLLER OPERATOR: Dr. Smith was following while in hospital. TEST RESULT PENDING ON DISCHARGE: None. ALLERGIES: NO KNOWN DRUG ALLERGIES. DISCHARGE PLAN: Posthospital, the patient is instructed to follow up with Dr. Smith. HOSPITAL COURSE: A 57-year-old male with above-mentioned medical problem, who was admitted by Dr. Alejandro Canales, please see his H and P for further details. The patient was admitted for epigastric abdominal pain, nausea, and vomiting. The patient had a CT abdomen and pelvis, which showed pancreatitis and fatty liver and there was also abnormality in esophagus and that is why, we consulted Gastroenterology. The patient was treated in standard fashion for acute pancreatitis. We attributed his acute pancreatitis related with alcohol abuse. The patient underwent upper endoscopy by supervisor commissary production and found with esophagitis and pathology report came back positive for Ng esophagus. The patient is advised to avoid NSAID as well as we started Protonix upon discharge. The patient is also instructed to follow up with supervisor commissary production for outpatient followup for Ng esophagus. The patient is seen and examined at bedside today. I have provided necessary patient education about avoidance of alcohol and NSAID. REVIEW OF SYSTEMS: All review of system reviewed with him and negative. PHYSICAL EXAMINATION: VITAL SIGNS: Currently; temperature 98.5, pulse 76, blood pressure 134/53, and saturation 99% on room air. Weight 168 pounds. GENERAL: The patient is currently alert and oriented x3. No obvious acute distress. HEENT: Head, normocephalic and atraumatic. Eyes, pupils are round and reactive to light. Extraocular muscle intact. ENT, oropharynx within normal limits. Moist mucous membranes. NECK: Supple. No JVD. No thyromegaly. No carotid bruit. No jugular venous distention. LUNGS: Clear to auscultation without any rhonchi or rales. CARDIAC: S1 and S2. Regular without any murmur. ABDOMEN: Soft and benign. EXTREMITIES: No edema. NEUROLOGIC: Nonfocal examination. The patient is medically stable for discharge. Job ID: [id number]
== END 2018-07-10 10:09 | disposition home or self-care (01) | DRG 440 ==
LOC: ERS 15:45 → T4-A 19:43
PROVIDERS: ADMIT Emergency Medicine; ATTEND Emergency Medicine
PROC: 0DB58ZX Excision of Esophagus, Via Natural or Artificial Opening Endoscopic, Diagnostic (ICD-10-PCS; principal; 2018-07-08)
DX: K85.20 Alcohol induced acute pancreatitis without necrosis or infection (principal); F10.20 Alcohol dependence, uncomplicated; Y90.8 Blood alcohol level of 240 mg/100 ml or more; K44.9 Diaphragmatic hernia without obstruction or gangrene; K22.70 Barrett's esophagus without dysplasia; K70.0 Alcoholic fatty liver; F41.9 Anxiety disorder, unspecified; F17.210 Nicotine dependence, cigarettes, uncomplicated
CPT/HCPCS: 36415; 74177; 80048; 80053; 80076; 80306; 80307; 81003; 82550; 83690; 83880; 84484; 85025; 85610; 85730; 88305; 88312; 88313; 90471; 90686; 90732; 93005; 96361; 96374; 96375; C9113; G0008; G0009; J1650; J1885; J2001; J2270; J2405; J2704; J3010; J3411; J3475; J7050; Q9966

== ENCOUNTER 2018-09-07 09:53 | Outpatient (CLI) | payer OTHER ==
[2018-09-07 11:42] LABS: #Eosinphils 0.5 thou/uL (0.0-0.7); #Lymphocytes 1.8 thou/uL (1.20-3.40); #Monocytes 0.4 thou/uL (0.11-0.59); #Neutrophils 3.8 thou/uL (1.40-6.50); %Basophils 0.6 % (0.0-1.0); %Eosinophils 6.9 % (0.0-10.0); %Lymphocytes 27.8 % (21.0-51.0); %Monocytes 6.2 % (0.0-10.0); %Neutrophils 58.4 % (42.0-75.0); Hemoglobin 14.2 g/dL (14.0-18.0); Mean Corpuscular HGB CONC 31.8 g/dL (32.0-36.0); Mean Corpuscular Hemoglobin 29.9 pg (27.0-31.0); Mean Platelet Volume 8.8 fL (7.4-10.4); Platelet Count 195 thou/uL (130-400); RBC Distribution Width 12.8 % (11.5-14.5); Red Blood Cell (RBC) Count 4.74 mill/uL (4.70-6.10); White Blood Cell (WBC) Count 6.6 thou/uL (4.8-10.8)
[2018-09-07 12:07] LABS: ALT (SGPT) 59 U/L (8-55); AST (SGOT) 22 U/L (5-34); Albumin 4.7 g/dL (3.5-5.0); Alkaline Phosphatase 70 U/L (40-150); Anion Gap 13 mmol/L (10-20); BUN (Urea Nitrogen) 13 mg/dL (8.4-25.7); Bilirubin, Total 0.5 mg/dL (0.2-1.2); Calc. Creatinine Clearance 0 mL/min (70-130); Calcium 9.9 mg/dL (7.8-10.44); Carbon Dioxide 26 mmol/L (22-29); Chloride 104 mmol/L (98-107); Estimated GFR-MDRD Greater than 90; Globulin 3.2 g/dL (2.4-3.5); Glucose 106 mg/dL (70-105); Potassium 4.3 mmol/L (3.5-5.1); Protein, Total 7.9 g/dL (6.0-8.3); Sodium 139 mmol/L (136-145)
== END 2018-09-07 09:54 | disposition home or self-care (01) ==
LOC: LABBT 09:53
PROVIDERS: ATTEND Surgery
DX: Z01.818 Encounter for other preprocedural examination (principal); K42.9 Umbilical hernia without obstruction or gangrene
CPT/HCPCS: 80053; 85025; 93005; 93010

== ENCOUNTER 2018-09-17 07:14 | Day surgery (SDC) | payer OTHER ==
[2018-09-07 10:40] VITALS: BMI 26.6
[2018-09-17] MEDS ORDERED: Bupivacaine/Epinephrine 0.25% 30 ML VIAL ONE (08:37)
[2018-09-17] MEDS ORDERED: Midazolam HCl 2 mg/2 ml Vial ONE ×2 (08:40→09:21)
[2018-09-17] MEDS ORDERED: Fentanyl 100 MCG/2 ML VIAL ONE ×4 (09:21→10:36)
[2018-09-17] MEDS ORDERED: HYDROcodone/Acetaminophen 5/325 mg Tablet ONE (11:41)
[2018-09-17] MEDS ORDERED: Ketorolac Tromethamine 30 MG/ML VIAL ONE (17:22)
[2018-09-17] MEDS ORDERED: Lidocaine 1% PF 5 ML VIAL ONE (17:22)
[2018-09-17] MEDS ORDERED: Rocuronium Bromide 10 MG/ML (10ML VIAL) ONE (17:22)
[2018-09-17] MEDS ORDERED: Dexamethasone 20 MG/5 ML VIAL ONE (17:22)
[2018-09-17] MEDS ORDERED: PROPOFOL 200 MG/20 ML VIAL ONE (17:22)
[2018-09-17] MEDS ORDERED: Glycopyrrolate 0.2 MG/ML 5 ML SYRINGE ONE (17:22)
[2018-09-17] MEDS ORDERED: Ondansetron PF 4 MG/2 ML Vial ONE (17:22)
--- NOTE | 2018-09-20 09:34 | OP ---
DATE OF PROCEDURE: 09/17/2018 PREOPERATIVE DIAGNOSIS: Umbilical hernia. PROCEDURE PERFORMED: Umbilical hernia repair with mesh. INDICATIONS FOR PROCEDURE: A 57-year-old male with an enlarging painful umbilical hernia. FINDINGS: It was a 1 cm defect. A 6.4 cm Proceed mesh inserted. DESCRIPTION OF PROCEDURE: After informed consent was obtained, the patient was taken to the operating room and given general endotracheal anesthesia and placed in supine position. Abdomen was prepped and draped in usual fashion. A subumbilical incision was performed. Subcu divided sharply. The hernia sac was dissected from the overlying skin sharply. Then, the hernia sac dissected down to the fascia circumferentially and removed. The contents were just some preperitoneal fat which were reduced. Digitally, I was able to create a pocket for the mesh. A 6.4 cm Proceed mesh inserted underneath the fascia. Then, the wings were sutured to the fascia using 0 Ethibond. The umbilical skin after hemostasis assured was sutured to the fascia with interrupted 3-0 Vicryl to restore umbilical contour and then skin closed with interrupted 4-0 Rapide. Steri-Strips applied. Sterile bandage applied. The patient tolerated the procedure well, transferred to Recovery in good condition. Sponge and needle count verified correct x2. Job ID: [id number]
== END 2018-09-17 12:16 | disposition home or self-care (01) ==
LOC: SDC 07:14
PROVIDERS: ATTEND Surgery
PROC: 0WUF0JZ Supplement Abdominal Wall with Synthetic Substitute, Open Approach (ICD-10-PCS; principal; 2018-09-17)
DX: K42.9 Umbilical hernia without obstruction or gangrene (principal); E11.9 Type 2 diabetes mellitus without complications; E78.00 Pure hypercholesterolemia, unspecified; M19.90 Unspecified osteoarthritis, unspecified site; F10.20 Alcohol dependence, uncomplicated; F17.200 Nicotine dependence, unspecified, uncomplicated; Z79.899 Other long term (current) drug therapy
CPT/HCPCS: J0690; J1100; J1885; J2001; J2250; J2405; J2704; J3010

== ENCOUNTER 2018-12-26 20:49 | Inpatient (IN) | payer OTHER ==
[2018-12-26 21:15] LABS: #Basophils 0.1 thou/uL (0.0-0.2); #Eosinphils 0.2 thou/uL (0.0-0.7); #Lymphocytes 3.3 thou/uL (1.20-3.40); #Monocytes 0.6 thou/uL (0.11-0.59); #Neutrophils 5.9 thou/uL (1.40-6.50); %Basophils 0.8 % (0.0-1.0); %Eosinophils 2.2 % (0.0-10.0); %Lymphocytes 32.6 % (21.0-51.0); %Monocytes 5.5 % (0.0-10.0); %Neutrophils 58.8 % (42.0-75.0); Hemoglobin 14.4 g/dL (14.0-18.0); Mean Corpuscular HGB CONC 35.8 g/dL (32.0-36.0); Mean Platelet Volume 7.5 fL (7.4-10.4); Platelet Count 173 thou/uL (130-400); RBC Distribution Width 12.6 % (11.5-14.5); Red Blood Cell (RBC) Count 4.37 mill/uL (4.70-6.10)
[2018-12-26 21:37] LABS: ALT (SGPT) 43 U/L (8-55); AST (SGOT) 35 U/L (5-34); Albumin 4.5 g/dL (3.5-5.0); Alkaline Phosphatase 77 U/L (40-150); Anion Gap 16 mmol/L (10-20); BUN (Urea Nitrogen) 10 mg/dL (8.4-25.7); Bilirubin, Total 0.6 mg/dL (0.2-1.2); Calc. Creatinine Clearance 0 mL/min (70-130); Calcium 9.1 mg/dL (7.8-10.44); Carbon Dioxide 23 mmol/L (22-29); Chloride 100 mmol/L (98-107); Estimated GFR-MDRD 85; Globulin 3.1 g/dL (2.4-3.5); Glucose 108 mg/dL (70-105); Lipase 266 U/L (8-78); Potassium 3.9 mmol/L (3.5-5.1); Protein, Total 7.6 g/dL (6.0-8.3); Sodium 135 mmol/L (136-145)
[2018-12-26] MEDS ORDERED: Lorazepam 2 MG/ML VIAL ONE (21:59)
[2018-12-26] MEDS ORDERED: Ondansetron PF 4 MG/2 ML Vial ONE (21:59)
[2018-12-26 22:27] LABS: Bacteria/HPF None Seen HPF (None Seen); Bilirubin Negative (Negative); Blood, Urine Trace (Negative); Clarity Clear (Clear); Glucose, Urine (Dipstick) Normal (Negative); Leukocyte Negative Leu/uL (Negative); Nitrite Negative (Negative); Protein, Urine (Dipstick) Negative (Neg-Trace); RBC/HPF None Seen HPF (0-3); Squamous Epithelial None Seen HPF (0-3); Urobilinogen Normal mg/dL (Less than 2); WBC/HPF 0-3 HPF (0-3)
--- NOTE | 2018-12-26 22:59 | CT ---
CT ABDOMEN WITH CONTRAST CT PELVIS WITH CONTRAST: DATE: 12/26/2018 9:48 PM HISTORY: 58-year-old male with right upper quadrant and right flank pain. Nausea and vomiting. COMPARISON: 07/06/2018 TECHNIQUE: IV injection of iodinated contrast media: administered. Oral contrast media:Not administered FINDINGS: There is edema around the uncinate process of the pancreas extending to surround the third stage of t he duodenum, similar to the previous CT, consistent with acute pancreatitis. No pancreatic calcifications. No pseudocyst. Diffusely low hepatic attenuation consistent with fatty liver. Again noted is the tiny, irregularly-s haped nonspecific, possibly 1 cm moderately low density lesion in Hepatic segment 2A of the left lobe of liver, unchanged. No portal vein thrombosis. Again noted is the enhancing mucosal thickening in a masslike configuration at the distal esophagus, extending into the cardia of the stomach. This appears slightly larger than on the previous CT. According to KAVON Joseph, the patient states that he has had endoscopy but no intervention was performed. The results of the endoscopy are unknown. No small bowel dilation. Normal appendix. Distended but otherwise normal urinary bladder. No ascites or pneumoperitoneum. Large number of diverticula throughout the descending and sigmoid colon without diverticulitis. Distended gallbladder without pericholecystic edema or mural thickening. No a bdominal aortic aneurysm. No hydronephrosis or pyelonephritis. Normal adrenals and spleen. IMPRESSION: 1. Acute pancreatitis. 2. Hepatic steatosis. 3. Enhancing, thickened mucosa at the distal esophagus and proximal stomach. Uncertain whether this r epresents postsurgical changes of Khai fundoplication, hyperplastic mucosa, or neoplastic tumor. Recommend correlation with results of endoscopy.
[2018-12-26] MEDS ORDERED: Morphine 4 MG/ML VIAL ONE (23:19)
[2018-12-27] MEDS ORDERED: Morphine 4 MG/ML VIAL ONE (01:38)
[2018-12-27] MEDS ORDERED: HYDROcodone/Acetaminophen 5/325 mg Tablet PO PRN ×2 (02:25)
[2018-12-27] MEDS ORDERED: Ondansetron PF 4 MG/2 ML Vial IVP PRN (02:25)
[2018-12-27] MEDS ORDERED: Ondansetron ODT 4 MG TAB SL PRN (02:25)
[2018-12-27] MEDS ORDERED: Acetaminophen 325 MG TAB PO PRN ×2 (02:25→11:42)
[2018-12-27] MEDS ORDERED: Morphine 2 MG/ML SYRINGE SLOW IVP PRN (02:26)
[2018-12-27] MEDS ORDERED: Morphine 4 MG/ML VIAL SLOW IVP PRN (02:27)
[2018-12-27 02:35] VITALS: BMI 27.3
[2018-12-27] MEDS: Sodium Chloride 0.9% 1,000 ML IV SCH ×7 (02:49→21:39)
[2018-12-27] MEDS ORDERED: Diazepam 5 MG TAB PO SCH (03:00)
[2018-12-27] MEDS ORDERED: Thiamine HCl 200 MG/2 ML VIAL IM SCH (03:00)
[2018-12-27] MEDS: Multivitamin W/ Minerals 1 TAB PO SCH (09:23)
[2018-12-27] MEDS: Folic Acid 1 MG TAB PO SCH (09:23)
[2018-12-27] MEDS: Diazepam 5 MG TAB PO PRN ×2 (09:26→19:38)
[2018-12-27] MEDS ORDERED: Bisacodyl 10 MG SUPP PR PRN (11:42)
[2018-12-27] MEDS ORDERED: Guaifenesin DM 100-10/5 ML UDCUP PO PRN (11:42)
[2018-12-27] MEDS ORDERED: Senokot S 8.6-50 MG TAB PO PRN (11:42)
[2018-12-27] MEDS: Morphine 2 MG/ML SYRINGE SLOW IVP PRN ×3 (13:20→23:38)
[2018-12-27] MEDS: Multivitamins, Adult 10 ML, Folic Acid 1 MG, Thiamine HCl 100 MG in Dextrose 5 %-0.45 %... IV SCH (13:21)
--- NOTE | 2018-12-27 15:38 | HP ---
REASON FOR ADMISSION: Abdominal pain, mild pancreatitis. HISTORY OF PRESENTING ILLNESS: The patient gives history of developing epigastric pain radiating to the back from last 2 days. This has been progressively getting worse. He also developed nausea, vomiting, felt dizzy and finally made it to the emergency room. This abdominal pain is always present and it is around 8 to 9 out of 10 in intensity to start with. Currently, it is around 2 to 3 out of 10. He admits to drinking more than 12 packs of beer from last 6 days. 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 He has also not been able to sleep. He has not been eating well from last week or so now. PAST MEDICAL AND SURGICAL HISTORY: History of hernia repair, dyslipidemia, has had prostate biopsy done on December 16, which shows no evidence of cancer. CURRENT MEDICATION: Atorvastatin 40 mg p.o. at bedtime. ALLERGIES: NO KNOWN DRUG ALLERGIES. PERSONAL HISTORY: Usually drinks beer 1 to 2 a day, but from last 6 days he has been drinking more than 12 packs of beer. Does not abuse drugs or smoke. Lives with his girlfriend. FAMILY HISTORY: Mother is living and healthy as far as he know. He does not know much about his father. The patient has two children, a boy and a girl, both live around in [place]. He is in touch with his daughter. CODE STATUS: Full. REVIEW OF SYSTEMS: CONSTITUTIONAL: Negative for weight loss or gain, ability to conduct usual activities. SKIN: Negative for rash, itching. EYES: Negative for double vision, pain. ENT/MOUTH: Negative for nose bleeding, neck stiffness, pain, tenderness. CARDIOVASCULAR: Negative for palpitations, dyspnea on exertion, orthopnea. RESPIRATORY: Negative for shortness of breath, wheezing, cough, hemoptysis, fever or night sweats. GASTROINTESTINAL: Negative for poor appetite, abdominal pain, heartburn, nausea , vomiting, constipation, or diarrhea. GENITOURINARY: Negative for urgency, frequency, dysuria, nocturia. MUSCULOSKELETAL: Negative for pain, swelling. NEUROLOGIC/PSYCHIATRIC: Negative for anxiety, depression. ALLERGY/IMMUNOLOGIC: Negative for skin rash, bleeding tendency. PHYSICAL EXAMINATION: GENERAL: The patient is a 58-year-old male, who is currently not in any acute distress except for mild abdominal pain. VITAL SIGNS: Blood pressure 130/80, pulse 90 per minute, respiratory rate 20 per minute, temperature 98.2 degrees Fahrenheit, saturating 95% on room air. NECK: Supple. No elevated JVD. HEENT: Eyes; extraocular muscles are intact. Pupils reacting to light. Oral cavity, mucous membranes are dry. No exudates or congestion. CARDIOVASCULAR SYSTEM: S1 and S2 heard. Regular rhythm. RESPIRATORY SYSTEM: Air entry 1+ bilateral. No rales or rhonchi. ABDOMEN: Soft. Bowel sounds heard. There is mild tenderness in the epigastric area. No rebound or guarding. EXTREMITIES: No peripheral edema or calf tenderness. VASCULAR SYSTEM: Peripheral pulses 1+ bilateral. No ischemic ulcerations or gangrene. CENTRAL NERVOUS SYSTEM: No gross focal deficits noted. The patient is oriented well. PSYCHIATRIC system: The patient's mood is euthymic. No hallucinations or delusions. LABORATORY DATA: EKG done shows normal sinus rhythm at [address] abdomen and pelvis with contrast done shows findings of acute pancreatitis. There is edema around the uncinate process of the pancreas extending to surround the third portion of the duodenum consistent with acute pancreatitis. No pancreatic calcifications or pseudocyst was seen. There is also an enhancing thickened mucosa at the distal esophagus and proximal stomach. Hepatic steatosis is seen. UA shows no signs of infection. Urine culture, no growth. Electrolytes stable. BUN 10, creatinine 0.9, serum glucose 108, total bilirubin 0.6, AST 35, ALT 43, alkaline phosphatase 77, lipase 266, albumin 4.5. White count of 10, H and H of 14 and 40, platelet count 173, MCV is 92 with 58% neutrophils. CLINICAL IMPRESSION AND PLAN: The patient will be admitted to medical floor for mild acute pancreatitis. He also has been binge drinking for the last 6 days now. He has had changes in his lower esophagus with prior history of Ng's. In view of above-mentioned issues, we will consult Dr. Smith, who has seen him before for Gastroenterology. He will be on banana bag to alternate with normal saline at 200 mL per hour. ASE alcohol withdrawal protocol will be followed. We will keep him on clear liquid diet for now. We will slowly advance diet as patient tolerates. He has been advised to ambulate as tolerated on the floor. We will continue to closely monitor him on medical floor. Likely, the patient might require repeat endoscopy and we will await GI opinion. Job ID: [id number] MTDD
[2018-12-27] MEDS: Rosuvastatin 20 MG TAB PO SCH (19:38)
[2018-12-27] MEDS: Melatonin 3 MG TAB PO PRN (23:33)
--- NOTE | 2018-12-28 01:54 | CON ---
DATE OF CONSULTATION: 12/27/2018 REASON FOR CONSULTATION: Abdominal pain, pancreatitis. HISTORY OF PRESENT ILLNESS: Mr. Moser is a 58-year-old Latin-Samoan male with abdominal pain, nausea, and vomiting over the last 2 days. The patient came to the ER and was hospitalized because of the abdominal pain and findings of pancreatitis. The patient actually feeling better today. His abdominal pain is markedly improved, but he says some back pain. There is no more nausea or vomiting. The patient was hospitalized here in June 2018 with similar episodes. Does drink 1 to 6 or 7 of beers every day. On his last admission, he stopped drinking for a while. Apparently, he got laid off for 3 weeks from work. Binge drinking heavily over the last 3 weeks. Has been drinking as much as 2 to 6 packs of beer every day. The patient's abdominal pain 2 days ago. Pain was over the epigastric area and going towards the back. Also has had nausea and also vomited couple of times. Since admission, abdominal pain is markedly improved. He appears very comfortable, in no acute distress. Had similar episodes in June 2018 and was seen by me. At that time, the CT of the abdomen showed peripancreatic edema, swelling, and also thickening of the GE junction. Had an EGD and a biopsy at that time. No malignancy seen. Repeat CAT scan done this admission showed similar finding as in past. Has no relevant history. ALLERGIES: NONE. SOCIAL HISTORY: The patient smokes 1/2 packet of cigarettes per day. He was drinking alcohol before, then stopped drinking for a while and then started drinking couple of weeks ago. MEDICAL ILLNESSES: 1. Pancreatitis in 2019. 2. History of hernia repair in September of [address] Piyush Hernandez. 3. EGD and biopsy in June 2018. 4. Hyperlipidemia. PAST SURGICAL HISTORY: Hernia repair. NEUROPSYCHIATRY HISTORY: No history of depression and anxiety. FAMILY HISTORY: Unremarkable. REVIEW OF SYSTEMS: A 10-point system unremarkable except for abdominal pain, nausea, and vomiting. PHYSICAL EXAMINATION: GENERAL: Appears very comfortable, in no distress. VITAL SIGNS: Actually very stable benzonatate. Afebrile, his pulse is 80, blood pressure 130/80. HEENT: Conjunctivae are clear. NECK: Supple. No adenitis or thyromegaly noted. CARDIOVASCULAR SYSTEM: First and second heart sounds heard are normal. LUNGS: Clear to auscultation. ABDOMEN: Distended, but very soft. Abdomen is actually nontender at this time. No rebound or guarding. His bowel sounds are hyperactive. EXTREMITIES: No edema. LABORATORY DATA: Normal lytes. Lipase is 266, is mildly elevated. Liver function tests are normal, AST of 35, ALT of 43, alkaline phosphatase 77. CBC is normal. Abdominal CAT scan shows thickening of the GE junction and esophagus, peripancreatic edema and swelling. CLINICAL IMPRESSION: 1. Recurrent pancreatitis, alcohol-induced. Abdominal CAT scan showed thickening of the distal esophagus in the last admission and again same findings at this admission. The EGD done in June 2018 revealed really no malignancy. 2. Chronic alcohol abuse. RECOMMENDATIONS: No need for repeat endoscopy as his endoscopy was done about 6 months ago. He also has no reflux symptoms at the present time. Advance his diet to regular diet tomorrow. If tolerating his diet well without any worsening abdominal pain, can consider discharge in the next 24 hours. Job ID: [id number]
[2018-12-28] MEDS ORDERED: traMADol HCl 50 MG TAB PO SCH (02:00)
[2018-12-28] MEDS: Sodium Chloride 0.9% 1,000 ML IV SCH ×4 (02:18→18:23)
[2018-12-28 02:53] LABS: #Eosinphils 0.3 thou/uL (0.0-0.7); #Lymphocytes 1.2 thou/uL (1.20-3.40); #Monocytes 0.4 thou/uL (0.11-0.59); #Neutrophils 4.4 thou/uL (1.40-6.50); %Basophils 0.5 % (0.0-1.0); %Eosinophils 5.5 % (0.0-10.0); %Lymphocytes 18.8 % (21.0-51.0); %Monocytes 5.6 % (0.0-10.0); %Neutrophils 69.6 % (42.0-75.0); Hemoglobin 13.3 g/dL (14.0-18.0); Mean Corpuscular HGB CONC 35.7 g/dL (32.0-36.0); Mean Corpuscular Volume 92.5 fL (78.0-98.0); Mean Platelet Volume 7.5 fL (7.4-10.4); Platelet Count 131 thou/uL (130-400); RBC Distribution Width 12.3 % (11.5-14.5); Red Blood Cell (RBC) Count 4.04 mill/uL (4.70-6.10); White Blood Cell (WBC) Count 6.3 thou/uL (4.8-10.8)
[2018-12-28 03:14] LABS: ALT (SGPT) 27 U/L (8-55); AST (SGOT) 30 U/L (5-34); Albumin 3.9 g/dL (3.5-5.0); Alkaline Phosphatase 69 U/L (40-150); Anion Gap 14 mmol/L (10-20); BUN (Urea Nitrogen) 4 mg/dL (8.4-25.7); Bilirubin, Total 1.1 mg/dL (0.2-1.2); Calc. Creatinine Clearance 130 mL/min (70-130); Carbon Dioxide 22 mmol/L (22-29); Chloride 102 mmol/L (98-107); Estimated GFR-MDRD Greater than 90; Globulin 2.9 g/dL (2.4-3.5); Glucose 105 mg/dL (70-105); Lipase 73 U/L (8-78); Potassium 3.1 mmol/L (3.5-5.1); Protein, Total 6.8 g/dL (6.0-8.3); Sodium 135 mmol/L (136-145)
[2018-12-28] MEDS: Morphine 2 MG/ML SYRINGE SLOW IVP PRN ×4 (03:32→22:43)
[2018-12-28] MEDS ORDERED: Diazepam 5 MG TAB PO PRN (04:00)
[2018-12-28] MEDS: Simethicone Chewable 80 MG TAB PO PRN ×3 (05:33→17:35)
--- NOTE | 2018-12-28 07:51 | PDOC.HOSPP ---
- Subjective Encounter Date: 12/28/18 Encounter Time: 07:50 Subjective: abd pain much improved, no N/V - Objective Vital Signs & Weight: Vital Signs (12 hours) Temp Pulse Resp BP BP Pulse Ox 12/28/18 04:12 152/90 H 12/28/18 04:00 98.4 F 79 18 152/90 H 95 12/28/18 00:00 98.7 F 77 18 148/90 H 96 12/27/18 23:39 148/90 H 12/27/18 20:00 98.6 F 83 18 154/89 H 98 Weight Weight 175 lb I&O: 12/27/18 12/28/18 12/29/18 06:59 06:59 06:59 Intake Total 1200 2700 Balance 1200 2700 Result Diagrams: 12/28/18 02:45 12/28/18 02:45 ROS - Medication Medications: Active Medications Generic Name Dose Route Start Last Admin Trade Name Freq PRN Reason Stop Dose Admin Acetaminophen 650 mg 12/27/18 11:42 12/27/18 13:34 Tylenol PO 650 mg Q4H PRN Administration Headache/Fever/Mild Pain (1-3) Folic Acid 1 mg 12/27/18 09:00 12/27/18 09:23 Folvite PO Not Given DAILY [facility] Multivitamins 10 ml/ Folic 1,011.2 mls @ 50 mls/hr 12/27/18 12:00 12/27/18 13 :21 Acid 1 mg/ Thiamine HCl 100 mg IV 12/30/18 11:59 1,011.2 mls / Dextrose/Sodium Chloride Q24HR ANGIE Administration Sodium Chloride 1,000 mls @ 200 mls/hr 12/27/18 11:45 12/28/18 02:18 Normal Saline 0.9% IV 1,000 mls .Q5H ANGIE Administration Iron/Minerals/Multivitamins 1 tab 12/27/18 09:00 12/27/18 09:23 Theragran M PO Not Given DAILY ANGIE Melatonin 3 mg 12/27/18 22:32 12/27/18 23:33 Melatonin PO 3 mg HSPRN PRN Administration Insomnia Morphine Sulfate 2 mg 12/27/18 11:49 12/28/18 03:32 Morphine SLOW IVP 2 mg Q4H PRN Administration Moderate to Severe Pain (6-10) Rosuvastatin Calcium 40 mg 12/27/18 21:00 12/27/18 19:38 Crestor PO 40 mg HS ANGIE Administration Simethicone 80 mg 12/28/18 02:37 12/28/18 05:33 Mylicon Chewable PO 80 mg PCHS PRN Administration Gas Pain - Exam awake alert Neck: no JVD Heart: RRR, no murmur Respiratory: CTAB Gastrointestinal: soft, non-tender, non-distended, normal bowel sounds Extremities: no edema Hosp A/P (1) Acute alcoholic pancreatitis Code(s): K85.20 - ALCOHOL INDUCED ACUTE PANCREATITIS WITHOUT NECROSIS OR INFCT Status: Acute Qualifiers: (2) Dyslipidemia Code(s): E78.5 - HYPERLIPIDEMIA, UNSPECIFIED Status: Chronic (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
[2018-12-28] MEDS ORDERED: Thiamine 100 MG TAB PO SCH (09:00)
[2018-12-28] MEDS ORDERED: Magnesium Oxide 400 MG TAB PO SCH (09:00)
[2018-12-28] MEDS: Ondansetron ODT 4 MG TAB PO PRN (09:07)
[2018-12-28] MEDS: Enoxaparin Sodium 40 MG/0.4 ML SYRINGE SC SCH (09:08)
[2018-12-28] MEDS: Multivitamin W/ Minerals 1 TAB PO SCH (10:24)
[2018-12-28] MEDS: Folic Acid 1 MG TAB PO SCH (10:24)
[2018-12-28] MEDS: Thiamine 100 MG TAB PO SCH (10:24)
[2018-12-28] MEDS: Multivitamins, Adult 10 ML, Folic Acid 1 MG, Thiamine HCl 100 MG in Dextrose 5 %-0.45 %... IV SCH (14:44)
[2018-12-28] MEDS: Rosuvastatin 20 MG TAB PO SCH (20:08)
[2018-12-28] MEDS: Melatonin 3 MG TAB PO PRN (22:43)
[2018-12-29] MEDS: Simethicone Chewable 80 MG TAB PO PRN ×2 (01:38→09:08)
[2018-12-29] MEDS: Ondansetron ODT 4 MG TAB PO PRN (01:38)
[2018-12-29] MEDS: traMADol HCl 50 MG TAB PO PRN ×2 (01:39→06:02)
[2018-12-29] MEDS: Sodium Chloride 0.9% 1,000 ML IV SCH ×2 (06:01→06:02)
--- NOTE | 2018-12-29 07:58 | PDOC.HOSPP ---
- Subjective Encounter Date: 12/29/18 Encounter Time: 07:55 Subjective: still has episodic gen abd pain - Objective Vital Signs & Weight: Vital Signs (12 hours) Temp Pulse Resp BP BP Pulse Ox 12/29/18 07:45 98.3 F 68 20 144/88 H 96 12/29/18 03:46 98.3 F 80 18 145/87 H 145/87 H 96 12/29/18 00:41 98.5 F 76 18 160/103 H 160/103 H 96 Weight Weight 175 lb I&O: 12/28/18 12/29/18 12/30/18 06:59 06:59 06:59 Intake Total 2700 0 Balance 2700 2069 Result Diagrams: 12/28/18 02:45 12/28/18 02:45 ROS - Medication Medications: Active Medications Generic Name Dose Route Start Last Admin Trade Name Freq PRN Reason Stop Dose Admin Acetaminophen 650 mg 12/27/18 11:42 12/27/18 13:34 Tylenol PO 650 mg Q4H PRN Administration Headache/Fever/Mild Pain (1-3) Diazepam 5 mg 12/28/18 04:00 12/29/18 01:38 Valium PO 5 mg Q4H PRN Administration FOR ASE 10 OR GREATER Enoxaparin Sodium 40 mg 12/28/18 09:00 12/28/18 09:08 Lovenox SC 40 mg 0900 ANGIE Administration Folic Acid 1 mg 12/27/18 09:00 12/28/18 10:24 Folvite PO 1 mg DAILY ANGIE Administration Multivitamins 10 ml/ Folic 1,011.2 mls @ 50 mls/hr 12/27/18 12:00 12/28/18 14 :44 Acid 1 mg/ Thiamine HCl 100 mg IV 12/30/18 11:59 1,011.2 mls / Dextrose/Sodium Chloride Q24HR ANGIE Administration Iron/Minerals/Multivitamins 1 tab 12/27/18 09:00 12/28/18 10:24 Theragran M PO 1 tab DAILY ANGIE Administration Melatonin 3 mg 12/27/18 22:32 12/28/18 22:43 Melatonin PO 3 mg HSPRN PRN Administration Insomnia Morphine Sulfate 2 mg 12/27/18 11:49 12/28/18 22:43 Morphine SLOW IVP 2 mg Q4H PRN Administration Moderate to Severe Pain (6-10) Ondansetron HCl 4 mg 12/28/18 08:55 12/29/18 01:38 Zofran Odt PO 4 mg Q6H PRN Administration Nausea/Vomiting Pantoprazole Sodium 40 mg 12/28/18 09:00 12/28/18 10:24 Protonix PO 40 mg QAM ANGIE Administration Rosuvastatin Calcium 40 mg 12/27/18 21:00 12/28/18 20:08 Crestor PO 40 mg HS ANGIE Administration Simethicone 80 mg 12/28/18 02:37 12/29/18 01:38 Mylicon Chewable PO 80 mg PCHS PRN Administration Gas Pain Thiamine HCl 100 mg 12/28/18 09:00 12/28/18 10:24 Thiamine PO 100 mg DAILY ANGIE Administration Tramadol HCl 50 mg 12/28/18 20:48 12/29/18 06:02 Ultram PO 50 mg Q4H PRN Administration Moderate Pain (4-6) - Exam awake alert Neck: no JVD Heart: RRR, no murmur Respiratory: CTAB Gastrointestinal: soft, non-tender, non-distended, normal bowel sounds Extremities: no edema Hosp A/P (1) Acute alcoholic pancreatitis Code(s): K85.20 - ALCOHOL INDUCED ACUTE PANCREATITIS WITHOUT NECROSIS OR INFCT Status: Acute Qualifiers: (2) Dyslipidemia Code(s): E78.5 - HYPERLIPIDEMIA, UNSPECIFIED Status: Chronic (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
[2018-12-29] MEDS: Enoxaparin Sodium 40 MG/0.4 ML SYRINGE SC SCH (09:05)
[2018-12-29] MEDS: Folic Acid 1 MG TAB PO SCH (09:06)
[2018-12-29] MEDS: Thiamine 100 MG TAB PO SCH (09:06)
[2018-12-29] MEDS: Multivitamin W/ Minerals 1 TAB PO SCH (09:06)
[2018-12-29 11:25] VITALS: BP 160/99; TEMP 98.2
[2018-12-29] MEDS: Multivitamins, Adult 10 ML, Folic Acid 1 MG, Thiamine HCl 100 MG in Dextrose 5 %-0.45 %... IV SCH (13:15)
--- NOTE | 2018-12-29 15:53 | DIS ---
DATE OF ADMISSION: 12/27/2018 DATE OF DISCHARGE: 12/29/2018 DISPOSITION: Discharged home. PRIMARY CARE PHYSICIAN: Aayush Coronado. 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 DISCHARGE MEDICATIONS: 1. Thiamine 100 mg a day. 2. Crestor 40 mg a day. 3. Protonix 40 mg a day. 4. Multivitamin one a day. ALLERGIES: NONE. PENDING AT TIME OF DISCHARGE: Nothing. CODE STATUS: Full. HOSPITAL COURSE: The patient was admitted with acute abdominal pain. Studies consistent with acute pancreatitis. CT scan consistent with acute pancreatitis. Laboratory; white count 10.0, hemoglobin 14.4, and platelet count 173,000. The patient was put on IV morphine, IV fluids. His abdomen was benign yesterday and is benign today. He has been told he needs to see his PCP in followup. He has appointment with his PCP tomorrow. Today, his abdomen is benign. His lipase is normal. He has been told to eat a low-fat diet to continue his home medicines. He was seen in consultation by Dr. Lillie Smith, who stated that the CT scan revealed thickened esophagus consistent with recent EGD showing Ng's esophagus with no dysplasia. No other studies were needed at this time. Job ID: [id number]
--- NOTE | 2019-01-01 11:43 | EKG ---
Test Reason : Blood Pressure : / mmHG Vent. Rate : 084 BPM Atrial Rate : 084 BPM P-R Int : 170 ms QRS Dur : 096 ms QT Int : 372 ms P-R-T Axes : 059 -40 044 degrees QTc Int : 439 ms Normal sinus rhythm Left axis deviation Abnormal ECG Confirmed by ANDER POTTS ([id number]), technical editor BLANCA ORLANDO ([id number]) on 01/01/2019 11:43:37 AM Referred By: Confirmed By:ANDER POTTS
== END 2018-12-29 16:35 | disposition home or self-care (01) | DRG 439 ==
LOC: ERS 20:49 → T4-A 12-27
PROVIDERS: ADMIT Hospitalist; ATTEND Hospitalist
DX: K85.20 Alcohol induced acute pancreatitis without necrosis or infection (principal); F10.188 Alcohol abuse with other alcohol-induced disorder; K22.70 Barrett's esophagus without dysplasia; E78.5 Hyperlipidemia, unspecified; K22.719 Barrett's esophagus with dysplasia, unspecified; K86.1 Other chronic pancreatitis; Z79.899 Other long term (current) drug therapy
CPT/HCPCS: 36415; 74177; 80053; 81003; 81015; 82150; 82248; 83690; 83735; 85025; 87086; 93005; 96361; 96374; 96375; 96376; J1650; J2060; J2270; J2405; J3411; J3475; J3490; J7042; Q0162; Q9966

== ENCOUNTER 2019-02-18 08:09 | Inpatient (IN) | payer OTHER ==
[2019-02-18] MEDS ORDERED: Ondansetron PF 4 MG/2 ML Vial ONE (09:01)
[2019-02-18 09:15] LABS: #Basophils 0.1 thou/uL (0.0-0.2); #Eosinphils 0.1 thou/uL (0.0-0.7); #Lymphocytes 1.4 thou/uL (1.20-3.40); #Monocytes 0.4 thou/uL (0.11-0.59); #Neutrophils 3.2 thou/uL (1.40-6.50); %Basophils 1.5 % (0.0-1.0); %Eosinophils 1.1 % (0.0-10.0); %Lymphocytes 26.7 % (21.0-51.0); %Monocytes 6.9 % (0.0-10.0); %Neutrophils 63.8 % (42.0-75.0); Mean Corpuscular HGB CONC 35.8 g/dL (32.0-36.0); Mean Corpuscular Volume 92.1 fL (78.0-98.0); Mean Platelet Volume 10.3 fL (7.4-10.4); Platelet Count 206 thou/uL (130-400); RBC Distribution Width 12.3 % (11.5-14.5); Red Blood Cell (RBC) Count 4.55 mill/uL (4.70-6.10); White Blood Cell (WBC) Count 5.1 thou/uL (4.8-10.8)
--- NOTE | 2019-02-18 09:40 | CT ---
CT abdomen and pelvis with IV contrast HISTORY: Abdomen pain. Nausea. COMPARISON: 12/26/2018. FINDINGS: Small hiatal hernia. Tiny cysts within the liver and left kidney. Scattered diverticula of the colon without adjacent inflammation. No evidence of bowel obstruction or inflammation. Small bone island left iliac bone. Urinary bladder is unremarkable. IMPRESSION: No acute abnormalities are demonstrated to explain abdomen pain. Small hiatal hernia. Mild diverticulosis. No evidence of diverticulitis.
[2019-02-18 10:07] LABS: Bilirubin Negative (Negative); Blood, Urine Negative (Negative); Clarity Clear (Clear); Glucose, Urine (Dipstick) Greater than 1000 mg/dL (Negative); Leukocyte Negative Leu/uL (Negative); Nitrite Negative (Negative); Protein, Urine (Dipstick) Negative (Neg-Trace); Urobilinogen Normal mg/dL (Less than 2)
[2019-02-18 10:40] LABS: Albumin 4.3 g/dL (3.5-5.0)
[2019-02-18 10:41] LABS: Chloride 95 mmol/L (98-107); Potassium 4.2 mmol/L (3.5-5.1); Sodium 126 mmol/L (136-145)
[2019-02-18 10:42] LABS: Globulin 3.4 g/dL (2.4-3.5); Protein, Total 7.7 g/dL (6.0-8.3)
[2019-02-18 10:44] LABS: Anion Gap 23 mmol/L (10-20); Bilirubin, Total 0.5 mg/dL (0.2-1.2); Carbon Dioxide 12 mmol/L (22-29)
[2019-02-18 10:45] LABS: Alcohol Less than 10 mg/dL (Less than 10); Alkaline Phosphatase 115 U/L (40-110); Calc. Creatinine Clearance 0 mL/min (70-130); Estimated GFR-MDRD 47
[2019-02-18 10:46] LABS: BUN (Urea Nitrogen) 14 mg/dL (8.4-25.7)
[2019-02-18 10:47] LABS: Base Excess-Venous -11.7 mmol/L (-2.0 to 3.0); Bicarbonate (HCO3v) 15.1 mmol/L (22.0-28.0); CO2 Tension (PvCO2) 36.4 mmHg (40.0-50.0); Calcium, Ionized 1.08 mmol/L (See Comments:); Chloride 105 mmol/L (98-107); Hemoglobin - Calc 14.7 g/dL (14.0-18.0); Potassium 4.4 mmol/L (3.5-5.1); Sodium 132 mmol/L (138-145); T. Carbon Dioxide 16.2 mmol/L (22.0-28.0); vO2 Saturation-calc 94.6 % (60.0-85.0)
[2019-02-18 10:47] LABS: AST (SGOT) 25 U/L (5-34)
[2019-02-18 10:48] LABS: ALT (SGPT) 45 U/L (8-55); Glucose 684 mg/dL (70-105); Lipase 29 U/L (8-78)
[2019-02-18] MEDS ORDERED: NS 0.9% w/ 20 MEQ KCL 1,000 ML IV SCH (11:15)
[2019-02-18] MEDS ORDERED: HUMULIN R 100 UNITS in Sodium Chloride 0.9% 100 ML IVPB SCH ×2 (11:15→12:15)
[2019-02-18] MEDS ORDERED: NS 0.9% w/ 20 MEQ KCL 1,000 ML IV PRN ×2 (12:09)
[2019-02-18] MEDS ORDERED: CCU Electrolyte Replacement 1 EACH IVPB ONE (12:09)
[2019-02-18] MEDS ORDERED: Dextrose 5 %-0.45 % NaCl 1,000 ML IV PRN (12:09)
[2019-02-18] MEDS ORDERED: D5 1/2 NS w/20 mEq KCL 1,000 ML IV PRN (12:09)
[2019-02-18] MEDS ORDERED: Sodium Chloride 0.9% 1,000 ML IV PRN ×4 (12:09)
[2019-02-18] MEDS ORDERED: Ondansetron ODT 4 MG TAB PO PRN (12:15)
[2019-02-18] MEDS ORDERED: Senokot S 8.6-50 MG TAB PO PRN (12:15)
[2019-02-18] MEDS ORDERED: Calcium Carbonate 500 MG ChewTAB PO PRN (12:15)
[2019-02-18] MEDS ORDERED: Ondansetron PF 4 MG/2 ML Vial IVP PRN (12:15)
[2019-02-18] MEDS ORDERED: Bisacodyl 10 MG SUPP PR PRN (12:15)
[2019-02-18] MEDS ORDERED: Ketorolac Tromethamine 30 MG/ML VIAL ONE (12:21)
[2019-02-18 12:33] LABS: Magnesium 2.3 mg/dL (1.6-2.6); Phosphorus 3.2 mg/dL (2.3-4.7)
[2019-02-18] MEDS ORDERED: CCU ELECTROLYTE REPLACEMENT PROTOCOL FS PRN (12:35)
[2019-02-18] MEDS ORDERED: Potassium Phosphate 12 MMOL in Sodium Chloride 0.9% 250 ML 250 ML IV PRN (12:35)
[2019-02-18] MEDS ORDERED: Magnesium 2 GM/50 ML 2 GM in Premix Bag 1 BAG IVPB PRN (12:35)
[2019-02-18] MEDS ORDERED: Potassium Chloride 40 MEQ in Premix Bag 1 BAG IVPB PRN (12:35)
[2019-02-18] MEDS ORDERED: Magnesium Oxide 400 MG TAB PO PRN ×2 (12:35)
[2019-02-18] MEDS ORDERED: Potassium Chloride 40 MEQ in Sodium Chloride 0.9% 250 ML 250 ML IVPB PRN (12:35)
[2019-02-18] MEDS ORDERED: PHOS-NAK 1 PKT PACK PO PRN ×2 (12:35)
[2019-02-18] MEDS ORDERED: Potassium Phosphate 9 MMOL in Sodium Chloride 0.9% 100 ML IVPB PRN (12:35)
[2019-02-18] MEDS ORDERED: Potassium Chloride 20 MEQ TAB PO PRN (12:35)
[2019-02-18] MEDS ORDERED: Potassium Phosphate 15 MMOL in Sodium Chloride 0.9% 250 ML 250 ML IV PRN (12:35)
[2019-02-18 13:47] LABS: CKMB 2.6 ng/mL (0-6.6)
[2019-02-18 14:23] LABS: Anion Gap 18 mmol/L (10-20); BUN (Urea Nitrogen) 12 mg/dL (8.4-25.7); Calc. Creatinine Clearance 0 mL/min (70-130); Calcium 8.3 mg/dL (7.8-10.44); Carbon Dioxide 13 mmol/L (22-29); Chloride 108 mmol/L (98-107); Estimated GFR-MDRD 61; Glucose 346 mg/dL (70-105); Potassium 3.8 mmol/L (3.5-5.1); Sodium 135 mmol/L (136-145)
[2019-02-18 15:26] LABS: ALT (SGPT) 39 U/L (8-55); AST (SGOT) 18 U/L (5-34); Albumin 3.8 g/dL (3.5-5.0); Alkaline Phosphatase 83 U/L (40-110); Anion Gap 15 mmol/L (10-20); BUN (Urea Nitrogen) 12 mg/dL (8.4-25.7); Bilirubin, Total 0.3 mg/dL (0.2-1.2); Calc. Creatinine Clearance 0 mL/min (70-130); Calcium 8.2 mg/dL (7.8-10.44); Carbon Dioxide 17 mmol/L (22-29); Chloride 109 mmol/L (98-107); Estimated GFR-MDRD 68; Glucose 265 mg/dL (70-105); Potassium 3.6 mmol/L (3.5-5.1); Protein, Total 6.8 g/dL (6.0-8.3); Sodium 137 mmol/L (136-145)
[2019-02-18 18:33] LABS: Anion Gap 14 mmol/L (10-20); BUN (Urea Nitrogen) 11 mg/dL (8.4-25.7); Calc. Creatinine Clearance 96 mL/min (70-130); Calcium 7.8 mg/dL (7.8-10.44); Carbon Dioxide 18 mmol/L (22-29); Chloride 110 mmol/L (98-107); Estimated GFR-MDRD 81; Glucose 176 mg/dL (70-105); Potassium 3.7 mmol/L (3.5-5.1); Sodium 138 mmol/L (136-145)
[2019-02-18] MEDS ORDERED: Dextrose 50% Abboject 50 ML SYRINGE SLOW IVP PRN (20:16)
[2019-02-18] MEDS ORDERED: Dextrose 5% in Water 1,000 ML IV PRN (20:16)
[2019-02-18] MEDS ORDERED: DC Electrolyte Protocol FS ONE (20:19)
[2019-02-18] MEDS: Famotidine 20 MG TAB PO SCH (20:37)
[2019-02-18] MEDS: Acetaminophen 325 MG TAB PO PRN (20:37)
[2019-02-18] MEDS: 1/2 NS w/KCL 20 mEq 1,000 ML IV SCH (20:59)
[2019-02-18] MEDS ORDERED: NPH, Human Insulin Isophane 300 UNIT/3 ML VIAL SC SCH (21:00)
[2019-02-18] MEDS ORDERED: Ketorolac Tromethamine 30 MG/ML VIAL IVP SCH (23:15)
[2019-02-19] MEDS: Insulin Regular 300 UNITS/3 ML VIAL SC PRN ×4 (02:18→21:40)
[2019-02-19] MEDS: 1/2 NS w/KCL 20 mEq 1,000 ML IV SCH ×3 (03:18→12:04)
[2019-02-19 06:48] LABS: Hemoglobin A1c Greater than 14.0 % (4.0-6.0)
[2019-02-19 07:10] LABS: Anion Gap 9 mmol/L (10-20); BUN (Urea Nitrogen) 9 mg/dL (8.4-25.7); Calc. Creatinine Clearance 118 mL/min (70-130); Calcium 7.4 mg/dL (7.8-10.44); Carbon Dioxide 16 mmol/L (22-29); Chloride 110 mmol/L (98-107); Estimated GFR-MDRD Greater than 90; Glucose 226 mg/dL (70-105); Magnesium 2.1 mg/dL (1.6-2.6); Potassium 3.4 mmol/L (3.5-5.1); Sodium 132 mmol/L (136-145)
[2019-02-19] MEDS ORDERED: Potassium Chloride 10 MEQ TAB PO SCH (07:30)
[2019-02-19 07:31] LABS: Phosphorus 1.5 mg/dL (2.3-4.7)
[2019-02-19] MEDS ORDERED: K-Phos Neutral 250 MG TAB PO SCH (08:15)
[2019-02-19] MEDS ORDERED: Potassium Chloride 20 MEQ TAB PO SCH (09:00)
[2019-02-19] MEDS ORDERED: FLU VACC QS2019-20(6MOS UP)/PF 60 MCG/0.5 ML SYRINGE IM ONE (09:00)
[2019-02-19] MEDS: Famotidine 20 MG TAB PO SCH ×2 (09:15→19:46)
[2019-02-19] MEDS: Enoxaparin Sodium 40 MG/0.4 ML SYRINGE SC SCH (09:16)
[2019-02-19] MEDS: K-Phos Neutral 250 MG TAB PO SCH ×2 (12:03→16:51)
[2019-02-19] MEDS: Insulin Glargine 25 UNITS in Pre-Filled Syringe 1 EACH SC SCH (12:47)
--- NOTE | 2019-02-19 12:55 | PDOC.HOSPP ---
- Subjective Encounter Date: 02/19/19 Encounter Time: 09:00 Subjective: Pt seen for followup re: hypokalemia. Feels better. - Objective Vital Signs & Weight: Vital Signs (12 hours) Temp Pulse Resp BP BP Pulse Ox 02/19/19 12:07 140/77 02/19/19 11:07 97.7 F 66 18 172/97 H 100 02/19/19 07:40 97.6 F 66 18 137/73 100 02/19/19 07:13 97.2 F L 02/19/19 04:00 98.3 F Weight Weight 174 lb 3.2 oz Most Recent Monitor Data Heart Rate from ECG 63 NIBP 114/69 NIBP BP-Mean 84 Respiration from ECG 18 SpO2 98 I&O: 02/18/19 02/19/19 02/20/19 06:59 06:59 06:59 Intake Total 3870 350 Output Total 625 Balance 3245 350 Result Diagrams: 02/18/19 09:06 02/19/19 06:12 Additional Labs: Accuchecks 02/19/19 02/19/19 02/19/19 11:12 05:45 02:14 POC Glucose 264 H 238 H 256 H 02/18/19 02/18/19 02/18/19 20:25 18:58 17:40 POC Glucose 130 H 159 H 174 H 02/18/19 02/18/19 02/18/19 17:16 14:42 14:34 POC Glucose 221 H 262 H 452 H 02/18/19 13:19 POC Glucose 392 H labs and MARs reviewed by nm Hospitalist ROS - Review of Systems Cardiovascular: denies: chest pain, palpitations, orthopnea, paroxysmal noc. dyspnea, edema, light headedness Gastrointestinal: denies: nausea, vomiting, abdominal pain, diarrhea, constipation, melena, hematochezia - Medication Medications: Active Medications Generic Name Dose Route Start Last Admin Trade Name Freq PRN Reason Stop Dose Admin Acetaminophen 650 mg 02/18/19 12:15 02/18/19 20:37 Tylenol PO 650 mg Q4H PRN Administration Headache/Fever/Mild Pain (1-3) Enoxaparin Sodium 40 mg 02/19/19 09:00 02/19/19 09:16 Lovenox SC 40 mg 0900 ANGIE Administration Famotidine 20 mg 02/18/19 21:00 02/19/19 09:15 Pepcid PO 20 mg BID ANGIE Administration Insulin Glargine 25 units/ 0.25 mls @ 0 mls/hr 02/19/19 09:00 02/19/19 12:47 Miscellaneous Medication SC 0.25 mls QAM ANGIE Administration Potassium Chloride/Sodium Chloride 1,000 mls @ 75 mls/hr 02/19/19 09:47 02/19 12:04 1/2 Ns W/Kcl 20 Meq IV 1,000 mls .[id number] ANGIE Administration Insulin Human Regular 0 units 02/18/19 20:16 02/19/19 05:46 Humulin R SC 4 units .MODERATE SLIDING SC PRN Administration Moderate Correctional Scale Insulin Human Regular 0 units 02/18/19 20:16 02/19/19 02:18 Humulin R SC 3 units .BEDTIME SLIDING SC PRN Administration Bedtime Correctional Scale Ondansetron HCl 4 mg 02/18/19 12:15 02/18/19 20:37 Zofran IVP 4 mg Q6H PRN Administration Nausea/Vomiting Phosphorus 500 mg 02/19/19 12:00 02/19/19 12:03 Kphos Neutral PO 500 mg TID-WM ANGIE Administration - Exam General Appearance: NAD Eye: anicteric sclera ENT: moist mucosa Neck: supple Heart: RRR, no rubs Respiratory: CTAB Gastrointestinal: soft, non-tender Musculoskeletal: normal tone Psychiatric: normal affect, normal behavior Hosp A/P (1) Hypokalemia Code(s): E87.6 - HYPOKALEMIA Status: Acute (2) Hyponatremia Code(s): E87.1 - HYPO-OSMOLALITY AND HYPONATREMIA Status: Acute (3) Dyslipidemia Code(s): E78.5 - HYPERLIPIDEMIA, UNSPECIFIED Status: Chronic (4) HTN (hypertension) Code(s): I10 - ESSENTIAL (PRIMARY) HYPERTENSION Status: Chronic (5) DKA (diabetic ketoacidoses) Code(s): E11.10 - TYPE 2 DIABETES MELLITUS WITH KETOACIDOSIS WITHOUT COMA Status: Resolved - Plan start lantus insulin, glyburide and metformin (HbA1c 14). Continue lisinopril, monitor vital signs and titrate antihypertensives as needed. Continue statin. Replace potassium. Hyponatremia mild, likely asymptomatic. JESSY resolved, likely due to DKA.
[2019-02-19] MEDS ORDERED: metFORMIN 500 MG TAB PO SCH (13:00)
[2019-02-19] MEDS ORDERED: glyBURIDE 5 MG TAB PO SCH (13:00)
[2019-02-19 13:53] VITALS: BMI 27.3
[2019-02-19] MEDS: metFORMIN 500 MG TAB PO SCH (16:51)
[2019-02-19] MEDS: Acetaminophen 325 MG TAB PO PRN (19:46)
[2019-02-19] MEDS ORDERED: Rosuvastatin 20 MG TAB PO SCH (21:00)
[2019-02-20] MEDS: 1/2 NS w/KCL 20 mEq 1,000 ML IV SCH (00:58)
[2019-02-20] MEDS: Insulin Regular 300 UNITS/3 ML VIAL SC PRN ×3 (02:32→12:54)
[2019-02-20 06:49] LABS: #Basophils 0.1 thou/uL (0.0-0.2); #Eosinphils 0.2 thou/uL (0.0-0.7); #Lymphocytes 1.6 thou/uL (1.20-3.40); #Monocytes 0.2 thou/uL (0.11-0.59); #Neutrophils 1.8 thou/uL (1.40-6.50); %Basophils 2.1 % (0.0-1.0); %Lymphocytes 40.8 % (21.0-51.0); %Monocytes 6.3 % (0.0-10.0); %Neutrophils 46.8 % (42.0-75.0); Hemoglobin 12.4 g/dL (14.0-18.0); Mean Corpuscular Hemoglobin 32.7 pg (27.0-31.0); Mean Corpuscular Volume 90.7 fL (78.0-98.0); Mean Platelet Volume 9.7 fL (7.4-10.4); Platelet Count 144 thou/uL (130-400); RBC Distribution Width 12.2 % (11.5-14.5); Red Blood Cell (RBC) Count 3.78 mill/uL (4.70-6.10); White Blood Cell (WBC) Count 3.9 thou/uL (4.8-10.8)
[2019-02-20] MEDS ORDERED: glyBURIDE 5 MG TAB PO SCH (08:00)
[2019-02-20 08:04] LABS: Anion Gap 15 mmol/L (10-20); BUN (Urea Nitrogen) 4 mg/dL (8.4-25.7); Calc. Creatinine Clearance 117 mL/min (70-130); Calcium 8.4 mg/dL (7.8-10.44); Carbon Dioxide 17 mmol/L (22-29); Chloride 104 mmol/L (98-107); Estimated GFR-MDRD Greater than 90; Glucose 191 mg/dL (70-105); Potassium 3.4 mmol/L (3.5-5.1); Sodium 133 mmol/L (136-145)
[2019-02-20 08:06] LABS: Phosphorus 2.6 mg/dL (2.3-4.7)
[2019-02-20] MEDS ORDERED: Lisinopril 20 MG TAB PO SCH (09:00)
[2019-02-20] MEDS: Insulin Glargine 25 UNITS in Pre-Filled Syringe 1 EACH SC SCH (09:41)
[2019-02-20] MEDS: Enoxaparin Sodium 40 MG/0.4 ML SYRINGE SC SCH (09:41)
[2019-02-20] MEDS: Famotidine 20 MG TAB PO SCH (09:43)
[2019-02-20] MEDS: metFORMIN 500 MG TAB PO SCH (09:43)
[2019-02-20] MEDS: K-Phos Neutral 250 MG TAB PO SCH ×2 (09:43→13:58)
[2019-02-20] MEDS ORDERED: Potassium Chloride 20 MEQ TAB PO SCH (10:15)
[2019-02-20 14:53] VITALS: BP 128/86; TEMP 98.2
--- NOTE | 2019-02-20 16:13 | DIS ---
DATE OF ADMISSION: 02/18/2019 DATE OF DISCHARGE: 02/20/2019 PRIMARY CARE PROVIDER: Dr. Laurence Verduzco DISCHARGE DIAGNOSES: 1. Diabetic ketoacidosis. 2. Diabetes mellitus, newly diagnosed. 3. Acute kidney injury. 4. Hyponatremia. 5. Hypokalemia. 6. Hypophosphatemia. CONDITION: Condition of the patient on the day of discharge, stable. I assessed Mr. Moser on the day of discharge. He denies any chest pain or shortness of breath. Vital signs are stable. S1 and S2 are heard, regular. Lungs are clear to auscultation bilaterally. DISCHARGE MEDICATIONS: 1. Lisinopril 20 mg daily. 2. Crestor 40 mg at bedtime. 3. Glyburide 5 mg daily. 4. Metformin 500 mg 2 times a day. 5. Lantus insulin 25 units daily. FOLLOWUP APPOINTMENTS: The patient is advised to follow up with primary care provider in 1 to 3 days' time. HOSPITAL COURSE: Mr. Moser is a pleasant 58-year-old gentleman, who was admitted to [facility] on February 18, 2019, for diabetic ketoacidosis, acute kidney injury, hyponatremia, and dehydration. He was treated with intravenous fluids and intravenous insulin in IMCU. He improved clinically and was transferred to the floor. He continued to improve and is being discharged home in a stable condition. During this hospitalization, hemoglobin A1c was greater than 14. On the day of discharge, he has sodium 133, potassium 3.4, which is being replaced and creatinine 0.79. Calcium is 8.4. White count is 3900, hemoglobin 12.4, and platelet count 144,000. Many thanks for allowing me to participate in your patient's care. Please feel free to contact me with any questions or concerns. DISCHARGE DESTINATION: Home. TIME SPENT: Total amount of time spent in coordinating this discharge: 32 minutes. Job ID: [id number]
--- NOTE | 2019-02-21 07:54 | HP ---
PRIMARY CARE PROVIDER: Dr. Laurence Horvath. CHIEF COMPLAINT: Generalized weakness. CHIEF COMPLAINT: Generalized weakness. HISTORY OF PRESENT ILLNESS: Mr. Moser is a pleasant 58-year-old gentleman, who was seen at [facility] on February 18, 2019. He reports that approximately a year ago, he was told that he was prediabetic. More recently, he has been started on medications for hypothyroidism, dyslipidemia, and hypertension. Over the last 2 weeks, he has been having generalized weakness. He also reports polyuria, polydipsia, and polyphagia. He denies any fevers or chills. He reports abdominal cramps. He presented to the emergency room because of ongoing symptoms. REVIEW OF SYSTEMS: All systems were reviewed and found to be negative except for the pertinent positives mentioned above. PAST MEDICAL HISTORY: The patient was hospitalized with acute pancreatitis earlier this year. He also has recently diagnosed hypertension and dyslipidemia. PAST SURGICAL HISTORY: Hernia repair and prostate biopsy. SOCIAL HISTORY: The patient quit tobacco and alcohol use this year. ALLERGIES: NO KNOWN DRUG ALLERGIES. CURRENT MEDICATIONS: Lisinopril 20 mg daily and Crestor 40 mg at bedtime. The patient has also been started on thyroid replacement therapy, but has not filled the prescription. FAMILY HISTORY: No family history of premature coronary artery disease. PHYSICAL EXAMINATION: GENERAL: Mr. Moser is awake and alert, not in acute distress. VITAL SIGNS: Blood pressure is 129/70, pulse 67, respiratory rate 16, and oxygen saturation 99% on room air. He is afebrile. EYES: No scleral icterus. No conjunctival pallor. ENT: Dry mucosal membranes. No oropharyngeal erythema or exudates. NECK: Supple and nontender. Trachea is midline. RESPIRATORY: Accessory muscles of breathing are not active. Chest wall movements are symmetric bilaterally. LUNGS: Clear to auscultation without wheeze, rhonchi, or crepitations. CARDIOVASCULAR: S1 and S2 are heard, regular. Peripheral pulses palpable. No carotid bruit. No pericardial rub. ABDOMEN: Soft and nontender. Bowel sounds heard. No hepatomegaly. No splenomegaly. NEUROLOGIC: Cranial nerves 2 through 12 intact, deep tendon reflexes 2+. MUSCULOSKELETAL: Power is 5/5 in all 4 extremities. SKIN: No rashes or subcutaneous nodules. LYMPHATIC: No cervical lymphadenopathy. PSYCHIATRIC: Normal mood. Normal affect. The patient is oriented to person, place, and time. LABORATORY DATA: Mr. Moser's labs and investigations were reviewed. CT scan of the abdomen and pelvis showed small hiatal hernia and mild diverticulosis. He has normal white count, normal hemoglobin, normal platelet count, decreased sodium of 126, normal potassium, normal blood urea nitrogen, and normal creatinine. Blood glucose when he arrived at the emergency room was 684. Magnesium is normal. Phosphorus is normal as well. Alkaline phosphatase is mildly elevated at 115, otherwise LFTs are unremarkable. Urinalysis is positive for glucose and ketones. Beta-hydroxybutyrate is elevated at 7.59. ASSESSMENT AND PLAN: Mr. Moser is a pleasant 58-year-old gentleman, who was seen at [facility] on February 18, 2019. His problem list includes: 1. Diabetic ketoacidosis: Mr. Moser is presenting with diabetic ketoacidosis. When he presented to the emergency room, his carbon dioxide level was 12 and anion gap was elevated at 23. He has been started on DKA protocol, we will continue DKA protocol. The patient will receive intravenous fluids and insulin as per protocol. 2. Hyponatremia: Pseudohyponatremia, secondary to hyperglycemia. Expect sodium level to improve with treatment of hyperglycemic state. 3. Dyslipidemia: Continue statin. 4. Hypertension: Resume home medications, monitor vital signs and titrate antihypertensives as needed. Many thanks for allowing me to participate in your patient's care. Please feel free to contact me with any questions or concerns. Job ID: [id number]
== END 2019-02-20 14:48 | disposition home or self-care (01) | DRG 638 ==
LOC: ERS 08:09 → IMCU/EMU 17:18 → SURG A 02-19 07:49
PROVIDERS: ADMIT Internal Medicine; ATTEND Internal Medicine
DX: E11.10 Type 2 diabetes mellitus with ketoacidosis without coma (principal); N17.9 Acute kidney failure, unspecified; E87.1 Hypo-osmolality and hyponatremia; E03.9 Hypothyroidism, unspecified; E78.5 Hyperlipidemia, unspecified; E86.0 Dehydration; I10 Essential (primary) hypertension; E87.6 Hypokalemia; E83.39 Other disorders of phosphorus metabolism; Z87.891 Personal history of nicotine dependence; Z79.899 Other long term (current) drug therapy
CPT/HCPCS: 36415; 36416; 74177; 80048; 80053; 80307; 81003; 82010; 82330; 82553; 82803; 83036; 83690; 83735; 83930; 84100; 84484; 85025; 96361; 96365; 96366; 96368; 96375; J1650; J1815; J1885; J2405; J3480; J3490

== ENCOUNTER 2019-07-18 06:18 | Emergency (ER) | payer OTHER, SELFPAY | END 2019-07-18 09:32 | disposition home or self-care (01) | LOC: ERS 06:18 | DX: H61.21 Impacted cerumen, right ear (principal); I10 Essential (primary) hypertension; E78.00 Pure hypercholesterolemia, unspecified; Z87.891 Personal history of nicotine dependence; Z79.899 Other long term (current) drug therapy | CPT/HCPCS: 69209 ==

== ENCOUNTER 2019-08-14 15:07 | Emergency (ER) | payer SELFPAY ==
[2019-08-14 16:08] LABS: #Basophils 0.1 thou/uL (0.0-0.2); #Eosinphils 0.1 thou/uL (0.0-0.7); #Lymphocytes 1.3 thou/uL (1.20-3.40); #Monocytes 0.2 thou/uL (0.11-0.59); %Basophils 1.1 % (0.0-1.0); %Eosinophils 1.5 % (0.0-10.0); %Neutrophils 71.3 % (42.0-75.0); Hemoglobin 14.2 g/dL (14.0-18.0); Mean Corpuscular HGB CONC 34.7 g/dL (32.0-36.0); Mean Corpuscular Hemoglobin 31.9 pg (27.0-31.0); Mean Corpuscular Volume 91.8 fL (78.0-98.0); Mean Platelet Volume 7.1 fL (7.4-10.4); Platelet Count 208 thou/uL (130-400); RBC Distribution Width 13.9 % (11.5-14.5); Red Blood Cell (RBC) Count 4.46 mill/uL (4.70-6.10); White Blood Cell (WBC) Count 5.7 thou/uL (4.8-10.8)
[2019-08-14] MEDS ORDERED: cloNIDine 0.1 MG TAB ONE (16:10)
[2019-08-14] MEDS ORDERED: Ondansetron PF 4 MG/2 ML Vial ONE (16:10)
[2019-08-14 16:28] LABS: ALT (SGPT) 136 U/L (8-55); AST (SGOT) 82 U/L (5-34); Acetaminophen Less than 6.0 mcg/mL (10.0-30.0); Albumin 4.1 g/dL (3.5-5.0); Alcohol 273 mg/dL (Less than 10); Alkaline Phosphatase 84 U/L (40-110); Anion Gap 19 mmol/L (10-20); BUN (Urea Nitrogen) 4 mg/dL (8.4-25.7); Bilirubin, Total 0.5 mg/dL (0.2-1.2); Calc. Creatinine Clearance 0 mL/min (70-130); Calcium 8.4 mg/dL (7.8-10.44); Carbon Dioxide 20 mmol/L (22-29); Chloride 102 mmol/L (98-107); Estimated GFR-MDRD Greater than 90; Globulin 3.1 g/dL (2.4-3.5); Glucose 153 mg/dL (70-105); Potassium 3.7 mmol/L (3.5-5.1); Protein, Total 7.2 g/dL (6.0-8.3); Salicylate Less than 8.0 mg/dL (15.0-30.0); Sodium 137 mmol/L (136-145)
[2019-08-14 16:29] LABS: CK (CPK) 277 U/L (30-200); Lipase 56 U/L (8-78)
[2019-08-14 17:06] LABS: Bilirubin Negative (Negative); Blood, Urine Negative (Negative); Clarity Clear (Clear); Glucose, Urine (Dipstick) Normal (Negative); Leukocyte Negative Leu/uL (Negative); Nitrite Negative (Negative); Protein, Urine (Dipstick) Negative (Neg-Trace); Urobilinogen Normal mg/dL (Less than 2)
[2019-08-14 17:16] LABS: Amphetamine Not Detected (NotDetected); Barbiturates Screen Not Detected (NotDetected); Benzodiazepine Screen Detected (NotDetected); Cocaine Metabolite Screen Not Detected (NotDetected); Medtox Control Line Valid? VALID (VALID); Medtox Reader # READER 4; Methadone Not Detected (NotDetected); Methamphetamine Not Detected (NotDetected); Opiate Screen Not Detected (NotDetected); Oxycodone Screen Not Detected (NotDetected); Phencyclidine (PCP) Not Detected (NotDetected); THC/Cannabinoid Screen Not Detected (NotDetected); Tricyclic Screen Not Detected (NotDetected)
[2019-08-14] MEDS ORDERED: Lorazepam 2 MG/ML VIAL ONE ×2 (19:06→23:29)
[2019-08-15] MEDS ORDERED: Multivitamins, Adult 10 ML, Thiamine HCl 100 MG, Folic Acid 1 MG in Dextrose 5 %-0.45 %... IV SCH (09:00)
--- NOTE | 2019-08-17 14:03 | EKG ---
Test Reason : Blood Pressure : / mmHG Vent. Rate : 079 BPM Atrial Rate : 079 BPM P-R Int : 164 ms QRS Dur : 094 ms QT Int : 398 ms P-R-T Axes : 061 -36 044 degrees QTc Int : 456 ms Normal sinus rhythm Left axis deviation Abnormal ECG Confirmed by SHAY MITCHELL, MARITA ([id number]), electronic news gathering editor XAVIER ANG ([id number]) on 08/17/2019 2:03:01 PM Referred By: Confirmed By:MARITA DAY MD
== END 2019-08-15 03:58 | disposition home or self-care (01) ==
LOC: ERS 15:07
DX: F10.10 Alcohol abuse, uncomplicated (principal); F41.9 Anxiety disorder, unspecified; I10 Essential (primary) hypertension; E78.00 Pure hypercholesterolemia, unspecified; E11.9 Type 2 diabetes mellitus without complications; F17.210 Nicotine dependence, cigarettes, uncomplicated; Z79.84 Long term (current) use of oral hypoglycemic drugs; Z79.899 Other long term (current) drug therapy; Y90.3 Blood alcohol level of 60-79 mg/100 ml
CPT/HCPCS: 36415; 80053; 80306; 80307; 81003; 82140; 82550; 83690; 84484; 85025; 93005; 96361; 96365; 96366; 96375; 96376; J2060; J2405; J3411; J7042

== ENCOUNTER 2019-11-16 13:43 | Emergency (ER) | payer OTHER, SELFPAY ==
[2019-11-17 14:39] LABS: SARS-CoV-2 MS2 Positive; SARS-CoV-2 N Gene Negative; SARS-CoV-2 S Gene Negative; SARS-CoV-2 orf1ab Negative
== END 2019-11-16 14:22 | disposition home or self-care (01) ==
LOC: ERS 13:43
DX: Z20.828 Contact with and (suspected) exposure to other viral communicable diseases (principal); I10 Essential (primary) hypertension; E78.00 Pure hypercholesterolemia, unspecified; E11.9 Type 2 diabetes mellitus without complications; F41.9 Anxiety disorder, unspecified; F17.210 Nicotine dependence, cigarettes, uncomplicated; Z79.84 Long term (current) use of oral hypoglycemic drugs; Z79.899 Other long term (current) drug therapy
CPT/HCPCS: 87635; 99283; U0003

== ENCOUNTER 2019-11-19 04:57 | Emergency (ER) | payer SELFPAY ==
[2019-11-19 05:44] LABS: #Basophils 0.1 thou/uL (0.0-0.2); #Eosinphils 0.1 thou/uL (0.0-0.7); #Lymphocytes 1.5 thou/uL (1.20-3.40); #Monocytes 0.4 thou/uL (0.11-0.59); #Neutrophils 6.7 thou/uL (1.40-6.50); %Basophils 0.7 % (0.0-1.0); %Eosinophils 0.8 % (0.0-10.0); %Lymphocytes 16.8 % (21.0-51.0); %Monocytes 4.7 % (0.0-10.0); Hemoglobin 10.1 g/dL (14.0-18.0); Mean Corpuscular HGB CONC 33.5 g/dL (32.0-36.0); Mean Corpuscular Hemoglobin 29.2 pg (27.0-31.0); Mean Corpuscular Volume 87.3 fL (78.0-98.0); Mean Platelet Volume 7.5 fL (7.4-10.4); Platelet Count 226 thou/uL (130-400); RBC Distribution Width 14.5 % (11.5-14.5); Red Blood Cell (RBC) Count 3.47 mill/uL (4.70-6.10); White Blood Cell (WBC) Count 8.7 thou/uL (4.8-10.8)
[2019-11-19 06:07] LABS: ALT (SGPT) 14 U/L (8-55); AST (SGOT) 17 U/L (5-34); Albumin 4.2 g/dL (3.5-5.0); Alkaline Phosphatase 57 U/L (40-110); Anion Gap 17 mmol/L (10-20); BUN (Urea Nitrogen) 17 mg/dL (8.4-25.7); Bilirubin, Total 0.4 mg/dL (0.2-1.2); Calc. Creatinine Clearance 0 mL/min (70-130); Calcium 8.3 mg/dL (7.8-10.44); Carbon Dioxide 23 mmol/L (22-29); Chloride 101 mmol/L (98-107); Estimated GFR-MDRD Greater than 90; Globulin 2.9 g/dL (2.4-3.5); Glucose 124 mg/dL (70-105); Lipase 35 U/L (8-78); Potassium 3.4 mmol/L (3.5-5.1); Protein, Total 7.1 g/dL (6.0-8.3); Sodium 138 mmol/L (136-145)
[2019-11-19] MEDS ORDERED: Ondansetron PF 4 MG/2 ML Vial ONE (06:09)
[2019-11-19] MEDS ORDERED: Morphine 4 MG/ML VIAL ONE (06:09)
--- NOTE | 2019-11-19 08:07 | CT ---
PRELIMINARY REPORT/[facility]/EMERGENCY AFTER HOURS PROCEDURE: EXAM: CT Abdomen and Pelvis with Intravenous Contrast CLINICAL HISTORY: . N/V x 5 days. Patient states he drinks 12 or more beers per day. Last ETOH consumption 4 hours ago. Patient states that he has been trying to decrease alcohol intake but feels shaky. Surgical hx of He rnia repair. prostate biopsy TECHNIQUE: Axial computed tomography images of the abdomen and pelvis with intravenous contrast. CONTRAST: With; ISOVUE 370, 95ML COMPARISON: 02/18/19 FINDINGS: Lung bases are clear. There is a moderate-sized hiatal hernia. No abdominal aortic aneurysm or dissection. No bowel obstruction. There is colonic diverticulosis without evidence for diverticulitis. Symmetric bilateral renal enhancement without evidence for nephrolithiasis or hydroureteronephrosis. Tiny cortical cyst superior pole left kidney. The spleen, adrenal glands are unremarkable. There is diffuse low-attenuation of the liver with smal l cysts noted. The gallbladder is distended without stones. No ductal dilation. Some atrophic cuadra ges of an otherwise unremarkable pancreas. There is no pneumoperitoneum. No ascites. Significant bladder distention. Prostatomegaly with some punctate prostate calcifications. Some thickening noted in the ascending colon, nonspecific. IMPRESSION: Significant bladder distention again noted . Prostatomegaly with some punctate prostate calcificatio ns. Some thickening noted in the ascending colon, nonspecific. Colonoscopy recommended. Moderate-sized hiatal hernia. Hepatic steatosis. Mild arteriosclerosis. ELECTRONICALLY SIGNED BY: Caro Myers MD Nov 19, 2019 6:33:58 AM CDT This report is intended for review by the ordering physician only, in accordance of law. If you recei ve this report in error, please call [facility] at [phone]. FINAL REPORT EMERGENCY AFTER HOURS ABDOMEN AND PELVIS CT SCAN WITH IV CONTRAST 0604 hours 11/19/2019 IMPRESSION: Marked distention of the urinary bladder. There is some right colon wall thickening, nonspecific, but new from the prior 02/18/2019 study, with possibilities including that of inflammation, infection, o r less likely neoplasm. No CT evidence for acute appendicitis. Small left renal cortical cyst. Small liver cysts. Moderate size hiatal hernia. This report is in agreement with preliminary report by [facility]. POS: RRE
[2019-11-19] MEDS ORDERED: Iopamidol-370 76% 500 ML 1 ML ONE (14:51)
== END 2019-11-19 06:57 | disposition home or self-care (01) ==
LOC: ERS 04:57
DX: R10.9 Unspecified abdominal pain (principal); R11.2 Nausea with vomiting, unspecified; I10 Essential (primary) hypertension; E78.00 Pure hypercholesterolemia, unspecified; E11.9 Type 2 diabetes mellitus without complications; F41.9 Anxiety disorder, unspecified; F17.210 Nicotine dependence, cigarettes, uncomplicated; Z79.84 Long term (current) use of oral hypoglycemic drugs; Z79.899 Other long term (current) drug therapy
CPT/HCPCS: 36415; 74177; 80053; 83690; 85025; 96361; 96374; 96375; J2270; J2405; Q9967

== ENCOUNTER 2019-11-21 01:29 | Emergency (ER) | payer SELFPAY | END 2019-11-21 01:59 | disposition left against medical advice (07) | LOC: ERS 01:29 | DX: Z53.21 Procedure and treatment not carried out due to patient leaving prior to being seen by health care provider (principal) ==

== ENCOUNTER 2019-11-21 02:37 | Emergency (ER) | payer SELFPAY ==
[2019-11-21] MEDS ORDERED: Ondansetron PF 4 MG/2 ML Vial ONE (03:17)
[2019-11-21] MEDS ORDERED: Morphine 4 MG/ML VIAL ONE (03:17)
[2019-11-21 03:40] LABS: #Lymphocytes 1.3 thou/uL (1.20-3.40); #Monocytes 0.3 thou/uL (0.11-0.59); #Neutrophils 7.6 thou/uL (1.40-6.50); %Basophils 0.2 % (0.0-1.0); %Eosinophils 0.2 % (0.0-10.0); %Lymphocytes 13.9 % (21.0-51.0); %Neutrophils 82.7 % (42.0-75.0); Hemoglobin 9.8 g/dL (14.0-18.0); Mean Corpuscular HGB CONC 34.3 g/dL (32.0-36.0); Mean Corpuscular Hemoglobin 29.6 pg (27.0-31.0); Mean Corpuscular Volume 86.2 fL (78.0-98.0); Platelet Count 196 thou/uL (130-400); RBC Distribution Width 14.8 % (11.5-14.5); White Blood Cell (WBC) Count 9.2 thou/uL (4.8-10.8)
[2019-11-21 04:05] LABS: ALT (SGPT) 21 U/L (8-55); AST (SGOT) 27 U/L (5-34); Albumin 4.5 g/dL (3.5-5.0); Alkaline Phosphatase 64 U/L (40-110); Anion Gap 21 mmol/L (10-20); BUN (Urea Nitrogen) 14 mg/dL (8.4-25.7); Bilirubin, Total 0.5 mg/dL (0.2-1.2); Calc. Creatinine Clearance 0 mL/min (70-130); Calcium 8.7 mg/dL (7.8-10.44); Carbon Dioxide 19 mmol/L (22-29); Chloride 98 mmol/L (98-107); Estimated GFR-MDRD Greater than 90; Globulin 3.1 g/dL (2.4-3.5); Glucose 110 mg/dL (70-105); Lipase 35 U/L (8-78); Potassium 3.7 mmol/L (3.5-5.1); Protein, Total 7.6 g/dL (6.0-8.3); Sodium 134 mmol/L (136-145)
[2019-11-21] MEDS ORDERED: Acetaminophen 500 MG TAB ONE (05:12)
[2019-11-21] MEDS ORDERED: Dicyclomine 20 MG TAB ONE (05:12)
--- NOTE | 2019-11-21 07:46 | RAD ---
EXAM: Single view of the chest HISTORY: Fever and headache COMPARISON: 07/01/2018 FINDINGS: Single view of the chest shows a normal sized cardiomediastinal silhouette. There is no betty dence of consolidation, mass, or pleural effusion. The bones are unremarkable. IMPRESSION: No evidence of acute cardiopulmonary disease
== END 2019-11-21 06:37 | disposition home or self-care (01) ==
LOC: ERS 02:37
DX: R10.11 Right upper quadrant pain (principal); R11.2 Nausea with vomiting, unspecified; D64.9 Anemia, unspecified; E11.9 Type 2 diabetes mellitus without complications; Z79.84 Long term (current) use of oral hypoglycemic drugs
CPT/HCPCS: 71045; 80053; 82274; 83690; 84484; 85025; 93005; 96361; 96374; 96375; J2270; J2405

== ENCOUNTER 2019-11-23 19:57 | Emergency (ER) | payer SELFPAY ==
--- NOTE | 2019-11-23 21:07 | CT ---
CT HEAD WITHOUT CONTRAST: 11/23/19 INDICATIONS: Fall and injury to head. COMPARISON: Head CT of 07/01/18. The ventricles have normal size and position. No evidence of intracranial hemorrhage. No mass or amanda a. Sinuses and mastoids appear clear. IMPRESSION: No acute abnormality. POS: AGW
--- NOTE | 2019-11-23 21:35 | CT ---
CT CERVICAL SPINE: 11/23/19 INDICATIONS: Fall with injury to head and neck. FINDINGS: Cervical vertebrae maintain height and alignment. There are moderate degenerative changes seen. Loss of disc space with anterior osteophytes and posterior spondylosis seen at the C3-4, C4-5, C5-6 and C6 -7 levels. No evidence of cervical spine fracture. IMPRESSION: No evidence of acute fracture. Degenerative changes as described. POS: LEVYW
== END 2019-11-23 22:00 | disposition home or self-care (01) ==
LOC: ERS 19:57
DX: S09.90XA Unspecified injury of head, initial encounter (principal); F10.129 Alcohol abuse with intoxication, unspecified; E11.9 Type 2 diabetes mellitus without complications; Z79.84 Long term (current) use of oral hypoglycemic drugs; W22.8XXA Striking against or struck by other objects, initial encounter
CPT/HCPCS: 70450; 72125

== ENCOUNTER 2019-12-02 20:20 | Emergency (ER) | payer SELFPAY | END 2019-12-02 21:24 | disposition home or self-care (01) | LOC: ERS 20:20 | DX: F10.129 Alcohol abuse with intoxication, unspecified (principal); R10.84 Generalized abdominal pain; R11.2 Nausea with vomiting, unspecified; E11.9 Type 2 diabetes mellitus without complications; Z79.84 Long term (current) use of oral hypoglycemic drugs | CPT/HCPCS: 99281 ==

== ENCOUNTER 2019-12-05 17:31 | Emergency (ER) | payer SELFPAY | END 2019-12-05 19:21 | disposition left against medical advice (07) | LOC: ERS 17:31 | DX: Z53.21 Procedure and treatment not carried out due to patient leaving prior to being seen by health care provider (principal) ==

== ENCOUNTER 2019-12-07 07:31 | Inpatient (IN) | payer OTHER, SELFPAY ==
[2019-12-07] MEDS ORDERED: Ondansetron PF 4 MG/2 ML Vial ONE (07:49)
[2019-12-07] MEDS ORDERED: Morphine 4 MG/ML VIAL ONE ×2 (07:49→08:48)
[2019-12-07] MEDS ORDERED: Lorazepam 2 MG/ML VIAL ONE ×2 (08:16→11:14)
--- NOTE | 2019-12-07 08:19 | RAD ---
XR Chest 1 View Portable History: Dyspnea Comparison: Radiograph November 21, 2019 Findings: Heart size upper limits of normal. No pneumothorax. No effusion. Likely hiatal hernia, smal l-moderate. No acute osseous abnormality. Impression: 1. No acute intrathoracic abnormality.. 2. Moderate sliding hiatal hernia.
[2019-12-07 08:26] LABS: ALT (SGPT) 155 U/L (8-55); AST (SGOT) 387 U/L (5-34); Albumin 4.1 g/dL (3.5-5.0); Alkaline Phosphatase 405 U/L (40-110); Anion Gap 18 mmol/L (10-20); BUN (Urea Nitrogen) 7 mg/dL (8.4-25.7); Bilirubin, Total 0.5 mg/dL (0.2-1.2); Calc. Creatinine Clearance 0 mL/min (70-130); Calcium 8.9 mg/dL (7.8-10.44); Carbon Dioxide 20 mmol/L (22-29); Chloride 98 mmol/L (98-107); Estimated GFR-MDRD Greater than 90; Globulin 3.4 g/dL (2.4-3.5); Glucose 130 mg/dL (70-105); Lipase 97 U/L (8-78); Potassium 3.9 mmol/L (3.5-5.1); Protein, Total 7.5 g/dL (6.0-8.3); Sodium 132 mmol/L (136-145)
--- NOTE | 2019-12-07 08:44 | CT ---
CT ABDOMEN AND PELVIS WITH IV CONTRAST: HISTORY: Nausea, vomiting, and abdominal pain. COMPARISON: 11/19/2019. FINDINGS: Interval distention of the gallbladder is seen. No calcified gallstones are noted. The lung bases are clear. Moderate-sized hiatal hernia, fatty liver with small cysts, and small left renal cysts are again seen. No free air, free fluid, or lymphadenopathy is seen in the abdomen or p grady. The spleen, pancreas, adrenal glands, and right kidney are normal. The small bowel loops are not abnormally dilated. A normal-appearing appendix is present. There is colonic diverticulosis without diverticulitis. The prostate is enlarged. There are vascular calcifi cations without evidence of aneurysmal dilatation of the abdominal aorta. There are degenerative scar nges in the spine. IMPRESSION: 1. Distended gallbladder. Further evaluation with ultrasound is recommended. 2. The remainder of the exam is otherwise stable since 11/19/2019. POS: OFF
[2019-12-07 09:42] LABS: Bilirubin Negative (Negative); Blood, Urine Negative (Negative); Clarity Clear (Clear); Glucose, Urine (Dipstick) Normal (Negative); Ketone, Urine Negative (Negative); Leukocyte Negative Leu/uL (Negative); Nitrite Negative (Negative); Protein, Urine (Dipstick) Negative (Neg-Trace); Specific Gravity, Urine 1.033 (1.002-1.036); Urobilinogen Normal mg/dL (Less than 2); pH, Urine 6.5 (5.0-9.0)
--- NOTE | 2019-12-07 10:38 | ULT ---
US Gallbladder RUQ: 12/07/2019 9:28 AM CLINICAL HISTORY: Gallbladder distention on CT. STUDY: Limited right upper quadrant ultrasound of abdomen. COMPARISON: CT abdomen/pelvis 12/07/2019 FINDINGS: Liver: Size: Normal. Echogenicity: Hyperechoic consistent with hepatic steatosis. Contour: Smooth. Mass: None. Bile ducts: No intrahepatic or extrahepatic biliary dilatation. Common bile duct measures 5 mm. Gallbladder: Distended with layering sludge. No shadowing gallstones seen. Pancreas: Not well visualized Right kidney: No pelvicalyceal dilatation. Right kidney measuring 11.2 cm in length. IMPRESSION: 1. Distended gallbladder with sludge 2. Fatty liver
[2019-12-07 10:59] LABS: #Lymphocytes 0.4 thou/uL (1.20-3.40); #Monocytes 0.1 thou/uL (0.11-0.59); #Neutrophils 3.2 thou/uL (1.40-6.50); %Basophils 0.9 % (0.0-1.0); %Eosinophils 1.2 % (0.0-10.0); %Monocytes 1.3 % (0.0-10.0); %Neutrophils 86.6 % (42.0-75.0); Hemoglobin 9.9 g/dL (14.0-18.0); MDiff Complete? YES; Mean Corpuscular HGB CONC 33.5 g/dL (32.0-36.0); Mean Corpuscular Hemoglobin 29.4 pg (27.0-31.0); Mean Corpuscular Volume 87.8 fL (78.0-98.0); Mean Platelet Volume 10.1 fL (7.4-10.4); Platelet Count 45 thou/uL (130-400); Platelet Morphology Comment Appears Decreased; Polychromasia SLIGHT = 2-3 cells (100X) (0-2/hpf); Red Blood Cell (RBC) Count 3.38 mill/uL (4.70-6.10); White Blood Cell (WBC) Count 3.7 thou/uL (4.8-10.8)
[2019-12-07 11:30] LABS: Lactic Acid 0.7 mmol/L (0.5-2.2)
[2019-12-07] MEDS ORDERED: Calcium Carbonate 500 MG ChewTAB PO PRN (12:25)
[2019-12-07] MEDS ORDERED: Lorazepam 2 MG/ML VIAL SLOW IVP PRN (12:30)
[2019-12-07] MEDS ORDERED: Diazepam 5 MG TAB PO PRN (12:32)
[2019-12-07] MEDS ORDERED: HumaLOG 300 UNITS/3 ML VIAL SC PRN ×2 (12:33)
[2019-12-07] MEDS ORDERED: Dextrose 5% in Water 1,000 ML IV PRN (12:33)
[2019-12-07] MEDS ORDERED: Dextrose 50% Abboject 50 ML SYRINGE SLOW IVP PRN (12:33)
[2019-12-07] MEDS ORDERED: Pantoprazole 40 MG VIAL IVP SCH (12:45)
[2019-12-07] MEDS ORDERED: Thiamine HCl 200 MG/2 ML VIAL IM SCH (12:45)
[2019-12-07 13:33] LABS: PTT 28.6 sec (22.9-36.1)
[2019-12-07 13:35] LABS: Prothrombin Time 12.8 sec (12.0-14.7)
[2019-12-07 13:40] LABS: Magnesium 1.7 mg/dL (1.6-2.6); Phosphorus 3.2 mg/dL (2.3-4.7)
[2019-12-07 13:45] LABS: Troponin I 0.014 ng/mL (< 0.028)
[2019-12-07 14:02] LABS: HBCM Index 0.07 S/CO (0-0.79); HBSAg Index 0.16 S/CO (0-0.99); Hep A IgM AB Non-Reactive (NonReactive); Hep A IgM S/CO 0.16 S/CO (0-0.79); Hep B Surf Ag Non-Reactive S/CO (NonReactive); Hep C IgG Ab Non-Reactive (NonReactive); Hep C Index 0.15 S/CO (0-0.79); Hepatitis B Core IgM Abs Non-Reactive (NonReactive); Thyroid Stimulating Hormone 18.2504 uIU/mL (0.35-4.94)
--- NOTE | 2019-12-07 14:05 | HP ---
PRIMARY CARE PHYSICIAN: Zohra Horvath CHIEF COMPLAINT: Abdominal pain and shaking. HISTORY OF PRESENT ILLNESS: The patient is a 59-year-old male with a past medical history significant for alcohol abuse; diabetes type 2, non-insulin dependent; hypothyroidism; and hyperlipidemia, who presents to the ER for the above complaint. The patient reports over the last 3 days, developing abdominal pain. The pain is generalized throughout his abdomen. Describes it is aching. It is exacerbated with any oral intake including liquids and food, it is relieved by nothing. He reports some associated vomiting described as retching, mostly at night and after consuming anything orally. He denies any hematemesis. He also has diarrhea described as watery. He denies any blood. He has not had any recent hospitalizations, antibiotic use, or travel. He does report some associated chills and sweating. He did not check his temperature. He also reports some bilateral hand shaking. He reports that this has happened to him approximately 11 years ago. He reports that he is a known alcoholic. He drinks approximately 12 beers per day. His last drink was about 48 hours ago. He says this feels exactly like the time when he quit drinking alcohol in the past. He reports that 11 years ago, he was hospitalized. He did have withdrawal seizures and that is what he is most anxious about. He denies any chest pain, heart palpitation, or swelling to his lower extremities. He denies any shortness of breath or cough. He denies changes in color of urine or stools. He denies any known COVID contacts. He denies any urinary symptoms. He called EMS. Patient presented to EMS with stable vital signs, A and O x4. In the ER, he was hypertensive, tachycardic with normal respirations, normal O2 saturations, afebrile, reporting 10/10 pain. EKG was sinus tach with 102 beats per minute. No ST elevations. Troponin was 0.027. Chest x-ray showed moderate sliding hiatal hernia. CT of the abdomen and pelvis stated there was a stable abdomen with some distention in the gallbladder. Recommended right upper quadrant ultrasound. Right upper quadrant ultrasound with distended gallbladder with sludge and a fatty liver. He had a lactic acid of 5.5 and after IV fluids, it improved to 0.7. Lipase was 97. His alkaline phosphatase was 405, AST 387, ALT 155. WBCs were 3.7, platelets were 45, hemoglobin 9.9, hematocrit 29.7. The patient was given 2 L normal saline, Ativan, morphine, and Zofran with improvement in symptoms. PAST MEDICAL HISTORY: 1. Diabetes type 2. 2. Hypothyroidism. 3. Hyperlipidemia. 4. Alcohol abuse. PAST SURGICAL HISTORY: Abdominal hernia repair. SOCIAL HISTORY: The patient reports he lives in [place] with his family. He drinks approximately 12 beers per day. Last drink was 48 hours ago. He smokes cigars occasionally. 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 He ambulates without any assistive devices. FAMILY HISTORY: Noncontributory for alcoholism. Noncontributory for cardiac history. ALLERGIES: NO KNOWN DRUG ALLERGIES. HOME MEDICATIONS: The patient does not know his home medications. REVIEW OF SYSTEMS: All review of systems are negative unless otherwise stated in HPI. PHYSICAL EXAMINATION: VITAL SIGNS: Temperature 99.3, blood pressure 165/105, heart rate 110, respirations 18, 98% on room air. 10/10 pain. CONSTITUTIONAL: The patient is alert and oriented to person, place, and time. He has delayed with his speech. There is no slurring. He is comfortable and nontoxic in appearance. HEAD: Atraumatic and normocephalic. EYES: PERRLA. Extraocular muscles intact. Sclerae nonicteric. NECK: Full range of motion. No cervical spinous tenderness. No JVD. No cervical lymphadenopathy. ENT: Tympanic membranes are intact bilaterally. Oropharynx is clear. Uvula midline. Tacky mucous membranes. No oral lesions. RESPIRATORY/CHEST: Respirations are even and nonlabored. Clear to auscultation. CARDIOVASCULAR: S1 and S2 appreciated. Regular rate and rhythm. No murmurs, rubs, or gallops. ABDOMEN: Soft, mildly distended. Mildly tender to palpation throughout. No guarding. No rigidity. No rebound. Positive Barajas sign. Negative Rovsing sign. No abdominal bruit auscultated. BACK: Full range of motion. No central spinous tenderness. No CVA tenderness. EXTREMITIES: Upper extremities; full range of motion. Strength is normal. Sensation is intact. Palpable radial pulses. He does have bilateral tremors with movement. Lower extremities; full range of motion. Strength normal. Sensation intact. Palpable pedal pulses. No swelling. NEUROLOGIC: A and O x4. Moves all extremities well. Does have bilateral tremor to the upper extremities. Regulatory Product Manager intact. Unable to assess his gait. PSYCHIATRIC: Normal affect. A and O x4. Denies any suicidal or homicidal ideation. LABS AND DIAGNOSTICS: Sodium 132; potassium 3.9; chloride 98; carbon dioxide 20 ; BUN 7; creatinine 0.86; glucose 130; lactic acid 5.5, secondary repeat 0.7; calcium 8.9; total bilirubin 0.5; AST 387; ALT 155; alkaline phosphatase 405. Initial troponin 0.023. Lipase 97. WBCs 3.7, hemoglobin 9.9, hematocrit 29.7, platelets 45. UA was unremarkable. IMPRESSION AND PLAN: 1. Alcohol Withdrawal. Will admit to telemetry floor, observation status. Expected length of stay less than 2 midnights. The patient is a known alcoholic , drinks 12 beers per day. Last drink greater than 48 hours, presented hypertensive and tachycardic with transaminitis consistent with alcohol abuse. WBCs were 3.7. Lactic acid is now 0.7. We will make the patient n.p.o. We will initiate ASE protocol. Given banana bag daily. Give thiamine, B12, folate, and multivitamin. We will have Ativan scheduled & p.r.n. for seizures and ASE > 9. We will give IV fluid resuscitation. We will recheck CMP and CBC in the a.m. We will check a TSH, magnesium, and phosphorus. We will hold metformin. We will check an ammonia level. We will place the patient on fall precautions and seizure precautions. 2. Abdominal pain w/ Nausea and Vomiting. Likely secondary to problem #1. 3. Lactic Acidosis. Likely secondary to dehydration. 4. Transaminitis, likely secondary to alcohol abuse. Normal bilirubin. We will recheck levels in the a.m. We will avoid hepatotoxic medications. Will check GGT and repeat LFTs. 5. Pancytopenia, likely secondary to alcohol abuse. Hemoglobin and hematocrit are stable. The patient has low platelets. We will hold deep venous thrombosis prophylaxis for now. We will recheck in the a.m. 6. Diabetes type 2, non-insulin dependent. The patient takes metformin. We will hold metformin. We will start on moderate sliding scale. We will perform Accu-Cheks a.c. and at bedtime. 7. Hyponatremia, mild. The patient presents with sodium of 132, likely secondary to dehydration. We will give IV fluid resuscitation. We will recheck in the a.m. 8. Alcohol abuse. The patient reports extensive history of alcohol abuse drinking twelve beers per day. Last drink greater than 48 hours. The patient reports that 11 years ago, he was hospitalized with similar symptoms and did have alcohol withdrawal seizures. We will educate the patient on alcohol cessation. 9. Hypothyroidism. The patient has a history of hypothyroidism. He does not know his home medication dosing of levothyroxine. We will check a TSH. We will get nursing to reconcile home medications. 10. SCDs for deep venous thrombosis prophylaxis. No pharmaco deep venous thrombosis prophylaxis. Protonix for gastrointestinal prophylaxis. The patient is a full code. His contact is his daughter, Juli. He does not know her number. 11. Discussed case with Dr. Diallo. Job ID: [id number] MTDD
[2019-12-07 15:23] LABS: ALT (SGPT) 131 U/L (8-55); AST (SGOT) 251 U/L (5-34); Albumin 3.8 g/dL (3.5-5.0); Alkaline Phosphatase 376 U/L (40-110); Bilirubin, Direct 0.4 mg/dL (0.1-0.3); Bilirubin, Total 0.6 mg/dL (0.2-1.2); Protein, Total 6.9 g/dL (6.0-8.3)
[2019-12-07] MEDS: Sodium Chloride 0.9% 1,000 ML IV SCH ×2 (15:40→23:59)
[2019-12-07 16:50] LABS: Troponin I 0.027 ng/mL (< 0.028)
[2019-12-07 16:57] LABS: Amphetamine Not Detected (NotDetected); Barbiturates Screen Not Detected (NotDetected); Benzodiazepine Screen Detected (NotDetected); Cocaine Metabolite Screen Not Detected (NotDetected); Medtox Control Line Valid? VALID (VALID); Medtox Reader # READER 4; Methadone Not Detected (NotDetected); Methamphetamine Not Detected (NotDetected); Opiate Screen Detected (NotDetected); Oxycodone Screen Not Detected (NotDetected); Phencyclidine (PCP) Not Detected (NotDetected); THC/Cannabinoid Screen Not Detected (NotDetected); Tricyclic Screen Not Detected (NotDetected)
[2019-12-07] MEDS: Lorazepam 2 MG/ML VIAL SLOW IVP PRN ×2 (17:59→23:59)
[2019-12-08] MEDS ORDERED: Diazepam 5 MG TAB PO PRN (04:00)
[2019-12-08 04:49] LABS: Hemoglobin 9.4 g/dL (14.0-18.0); MDiff Complete? YES; Mean Corpuscular Hemoglobin 28.1 pg (27.0-31.0); Mean Corpuscular Volume 87.7 fL (78.0-98.0); Mean Platelet Volume 11.7 fL (7.4-10.4); Platelet Count 41 thou/uL (130-400); RBC Distribution Width 16.2 % (11.5-14.5); Red Blood Cell (RBC) Count 3.33 mill/uL (4.70-6.10); White Blood Cell (WBC) Count 2.6 thou/uL (4.8-10.8)
[2019-12-08 04:50] LABS: Band 14 % (5-11); Eosinophils 6 % (0-10); Lymphocytes 18 % (21-51); Monocytes 6 % (0-10); Neutrophil 56 % (42-75); Platelet Morphology Comment Appears Decreased
[2019-12-08 05:16] LABS: ALT (SGPT) 96 U/L (8-55); AST (SGOT) 134 U/L (5-34); Albumin 3.5 g/dL (3.5-5.0); Alkaline Phosphatase 313 U/L (40-110); Anion Gap 12 mmol/L (10-20); BUN (Urea Nitrogen) 6 mg/dL (8.4-25.7); Bilirubin, Total 0.5 mg/dL (0.2-1.2); Calc. Creatinine Clearance 125 mL/min (70-130); Calcium 7.6 mg/dL (7.8-10.44); Carbon Dioxide 25 mmol/L (22-29); Chloride 101 mmol/L (98-107); Estimated GFR-MDRD Greater than 90; Globulin 2.9 g/dL (2.4-3.5); Glucose 71 mg/dL (70-105); Potassium 3.6 mmol/L (3.5-5.1); Protein, Total 6.4 g/dL (6.0-8.3); Sodium 134 mmol/L (136-145)
[2019-12-08] MEDS: Sodium Chloride 0.9% 1,000 ML IV SCH ×2 (08:01→17:12)
[2019-12-08] MEDS ORDERED: Folic Acid 1 MG TAB PO SCH (09:00)
[2019-12-08] MEDS ORDERED: Multivit, Chewable SF 1 TAB PO SCH (09:00)
[2019-12-08] MEDS ORDERED: Multivitamins, Adult 10 ML, Thiamine HCl 100 MG, Folic Acid 1 MG in Dextrose 5 %-0.45 %... IV SCH (09:00)
[2019-12-08] MEDS ORDERED: Multivitamin W/ Minerals 1 TAB PO SCH (09:00)
[2019-12-08] MEDS: Folic Acid 1 MG TAB PO SCH (09:20)
[2019-12-08] MEDS: Thiamine 100 MG TAB PO SCH (09:20)
[2019-12-08] MEDS: Magnesium Oxide 400 MG TAB PO SCH (09:20)
[2019-12-08] MEDS: Cyanocobalamin (Vitamin B-12) 1,000 MCG TAB PO SCH (09:20)
[2019-12-08] MEDS: Pantoprazole 40 MG VIAL IVP SCH (09:20)
[2019-12-08] MEDS: Morphine 2 MG/ML VIAL SLOW IVP PRN ×2 (11:40→23:09)
[2019-12-08 13:55] LABS: SARS-CoV-2 MS2 Positive; SARS-CoV-2 N Gene Negative; SARS-CoV-2 S Gene Negative; SARS-CoV-2 by NAA Not Detected (NotDetected); SARS-CoV-2 orf1ab Negative
[2019-12-08] MEDS: Meclizine HCl 12.5 MG TAB PO SCH ×2 (15:09→20:01)
--- NOTE | 2019-12-08 16:40 | PDOC.HOSPP ---
- Subjective Encounter Date: 12/08/19 Encounter Time: 12:30 Subjective: pt up in bed complains of pain to his abdomen. He also complains of vertigo. - Objective Vital Signs & Weight: Vital Signs (12 hours) Temp Pulse Pulse Pulse Resp BP BP 12/08/19 15:03 98.1 F 80 18 12/08/19 12:58 98.3 F 86 20 12/08/19 09:02 76 82 154/92 H 163/86 H 12/08/19 07:56 98.1 F 86 20 BP Pulse Ox 12/08/19 15:03 155/90 H 98 12/08/19 12:58 160/93 H 12/08/19 09:02 12/08/19 07:56 133/77 95 Weight Admit Weight 164 lb 4.8 oz Weight 165 lb 8 oz I&O: 12/07/19 12/08/19 12/09/19 06:59 06:59 06:59 Intake Total 9 Output Total 5606 2780 Balance -293 -2780 Result Diagrams: 12/08/19 04:13 12/08/19 04:13 Additional Labs: Accuchecks 12/08/19 12/08/19 12/07/19 10:30 05:51 20:35 POC Glucose 117 H 77 137 H 12/07/19 17:35 POC Glucose 89 Hospitalist ROS - Review of Systems Respiratory: denies: cough, dry, shortness of breath, hemoptysis, SOB with excertion, pleuritic pain, sputum, wheezing, other Cardiovascular: reports: light headedness Gastrointestinal: reports: abdominal pain Genitourinary: denies: dysuria, frequency, incontinence, hematuria, retention, other Musculoskeletal: denies: neck pain, shoulder pain, arm pain, back pain, hand pain, leg pain, foot pain, other - Medication Medications: Active Medications Generic Name Dose Route Start Last Admin Trade Name Freq PRN Reason Stop Dose Admin Cyanocobalamin 1,000 mcg 12/08/19 09:00 12/08/19 09:20 Vitamin B-12 PO 1,000 mcg DAILY ANGIE Administration Folic Acid 1 mg 12/08/19 09:00 12/08/19 09:20 Folvite PO 1 mg DAILY ANGIE Administration Lorazepam 2 mg 12/07/19 12:30 07/29/20 23:59 Ativan SLOW IVP 2 mg Q6H PRN Administration Anxiety/Agitation Magnesium Oxide 400 mg 12/08/19 09:00 12/08/19 09:20 Magnesium Oxide PO 400 mg DAILY ANGIE Administration Meclizine HCl 12.5 mg 12/08/19 15:00 12/08/19 15:09 Antivert PO 12.5 mg TID ANGIE Administration Morphine Sulfate 2 mg 12/08/19 11:21 12/08/19 11:40 Morphine SLOW IVP 2 mg Q6H PRN Administration Pain Pantoprazole Sodium 40 mg 12/08/19 09:00 12/08/19 09:20 Protonix IVP 40 mg DAILY ANGIE Administration Sodium Chloride 10 ml 12/07/19 12:25 12/08/19 09:26 Flush - Normal Saline IVF 10 ml Q12HR PRN Administration Saline Flush Thiamine HCl 100 mg 12/08/19 09:00 12/08/19 09:20 Thiamine PO 100 mg DAILY ANGIE Administration - Exam Neck: negative: supple, symmetric, no JVD, no thyromegaly, no lymphadenopathy, no carotid bruit, JVD Heart: negative: RRR, no murmur, no gallops, no rubs, normal peripheral pulses, irregular, diminshed peripheral pulses, murmur present, II/IV, III/IV Respiratory: negative: CTAB, no wheezes, no rales, no ronchi, normal chest expansion, no tachypnea, normal percussion, rales, rhonchi, tachypneic, wheezes Gastrointestinal: soft, normal bowel sounds, tender to palpation Extremities: negative: no cyanosis, no clubbing, no edema, 1+ LE edema, 2+ LE edema, clubbing Neurological: negative: cranial nerve grossly intact, normal sensation to touch , no weakness, no focal deficits, no new deficit, facial droop, hemiplegia, speech deficit, vision deficit Hosp A/P (1) Abnormal LFTs Code(s): R94.5 - ABNORMAL RESULTS OF LIVER FUNCTION STUDIES Status: Acute (2) Alcohol abuse Code(s): F10.10 - ALCOHOL ABUSE, UNCOMPLICATED Status: Chronic (3) Dyslipidemia Code(s): E78.5 - HYPERLIPIDEMIA, UNSPECIFIED Status: Chronic (4) HTN (hypertension) Code(s): I10 - ESSENTIAL (PRIMARY) HYPERTENSION Status: Chronic (5) Pain in the abdomen Code(s): R10.9 - UNSPECIFIED ABDOMINAL PAIN Status: Acute - Plan will start pt on abx and get hida scan. will continue thiamine and folic acid. pt encouraged against drinking. will add antivert.
[2019-12-08] MEDS: Piperacillin/Tazobactam 3.375 GM in Sodium Chloride 0.9% 100 ML IVPB SCH ×2 (17:07→23:10)
[2019-12-08] MEDS: Lorazepam 2 MG/ML VIAL SLOW IVP PRN (17:08)
[2019-12-08] MEDS ORDERED: Atorvastatin Calcium 40 MG TAB PO SCH (21:00)
[2019-12-09] MEDS: Sodium Chloride 0.9% 1,000 ML IV SCH ×2 (05:09→17:07)
[2019-12-09] MEDS: Piperacillin/Tazobactam 3.375 GM in Sodium Chloride 0.9% 100 ML IVPB SCH ×3 (05:09→17:07)
[2019-12-09] MEDS: Levothyroxine Sodium 125 MCG TAB PO SCH (05:09)
[2019-12-09] MEDS: Pantoprazole 40 MG VIAL IVP SCH (08:38)
[2019-12-09] MEDS: Magnesium Oxide 400 MG TAB PO SCH (08:38)
[2019-12-09] MEDS: Cyanocobalamin (Vitamin B-12) 1,000 MCG TAB PO SCH (08:38)
[2019-12-09] MEDS: Thiamine 100 MG TAB PO SCH (08:38)
[2019-12-09] MEDS: Meclizine HCl 12.5 MG TAB PO SCH ×3 (08:38→19:40)
[2019-12-09] MEDS: Folic Acid 1 MG TAB PO SCH (08:38)
--- NOTE | 2019-12-09 08:59 | PDOC.HOSPP ---
- Subjective Encounter Date: 12/09/19 Encounter Time: 08:30 Subjective: Patient was seen and examined. Patient complained of continued shaking, dizziness, and weakness. Patient is nervous to ambulate due to feeling of unsteadiness. Reported pain in head and "belly" as a 10 out of 10. Stated he is unable to sleep due to anxiety. - Objective Vital Signs & Weight: Vital Signs (12 hours) Temp Pulse Resp BP Pulse Ox 12/09/19 07:51 98.5 F 92 20 139/97 H 95 12/09/19 04:04 98.8 F 77 18 157/89 H 97 Weight Admit Weight 164 lb 4.8 oz Weight 168 lb 4.8 oz I&O: 12/08/19 12/09/19 12/10/19 06:59 06:59 06:59 Intake Total 3802 3470 Output Total 2350 4630 Balance -293 -1160 Result Diagrams: 12/08/19 04:13 12/08/19 04:13 Additional Labs: Accuchecks 12/09/19 12/08/19 12/08/19 06:05 21:04 17:55 POC Glucose 112 H 110 186 H 12/08/19 10:30 POC Glucose 117 H EKG Reviewed by me: Yes (SR) Hospitalist ROS - Review of Systems Constitutional: reports: weakness, other (shaking) Respiratory: denies: shortness of breath, sputum Gastrointestinal: reports: abdominal pain (patient stated right sided abdominal pain that shifts to mid abdomen with moevement). denies: nausea, vomiting, diarrhea Musculoskeletal: reports: hand pain (patient reported cramping in hands), foot pain (patient reported cramping in feet) Skin: reports: bruising (patient has two right sided flank bruises) - Medication Medications: Active Medications Generic Name Dose Route Start Last Admin Trade Name Freq PRN Reason Stop Dose Admin Atorvastatin Calcium 40 mg 12/08/19 21:00 12/08/19 20:01 Lipitor PO 40 mg HS ANGIE Administration Cyanocobalamin 1,000 mcg 12/08/19 09:00 12/09/19 08:38 Vitamin B-12 PO 1,000 mcg DAILY ANGIE Administration Folic Acid 1 mg 12/08/19 09:00 12/09/19 08:38 Folvite PO 1 mg DAILY ANGIE Administration Piperacillin Sod/Tazobactam 100 mls @ 200 mls/hr 12/08/19 18:00 12/09/19 05: 09 Sod 3.375 gm/ Sodium Chloride IVPB 100 mls Q6HR ANGIE Administration Sodium Chloride 1,000 mls @ 75 mls/hr 12/08/19 18:00 12/09/19 05:09 Normal Saline 0.9% IV 1,000 mls .[id number] ANGIE Administration Levothyroxine Sodium 125 mcg 12/09/19 06:00 12/09/19 05:09 Synthroid PO 125 mcg 0600 ANGIE Administration Lorazepam 2 mg 12/07/19 12:30 12/08/19 17:08 Ativan SLOW IVP 2 mg Q6H PRN Administration Anxiety/Agitation Magnesium Oxide 400 mg 12/08/19 09:00 12/09/19 08:38 Magnesium Oxide PO 400 mg DAILY ANGIE Administration Meclizine HCl 12.5 mg 12/08/19 15:00 12/09/19 08:38 Antivert PO 12.5 mg TID ANGIE Administration Morphine Sulfate 2 mg 12/08/19 11:21 12/08/19 23:09 Morphine SLOW IVP 2 mg Q6H PRN Administration Pain Pantoprazole Sodium 40 mg 12/08/19 09:00 12/09/19 08:38 Protonix IVP 40 mg DAILY ANGIE Administration Sodium Chloride 10 ml 12/07/19 12:25 12/09/19 08:37 Flush - Normal Saline IVF 10 ml Q12HR PRN Administration Saline Flush Thiamine HCl 100 mg 12/08/19 09:00 12/09/19 08:38 Thiamine PO 100 mg DAILY ANGIE Administration - Exam General Appearance: awake alert Heart: RRR, no murmur, no gallops, no rubs Respiratory: CTAB, no wheezes, no rales, no ronchi Gastrointestinal: normal bowel sounds, no bruit, tender to palpation, voluntary guarding Psychiatric: normal behavior, A&O x 3 Hosp A/P (1) Abnormal LFTs Code(s): R94.5 - ABNORMAL RESULTS OF LIVER FUNCTION STUDIES Status: Acute (2) Alcohol abuse Code(s): F10.10 - ALCOHOL ABUSE, UNCOMPLICATED Status: Chronic (3) Dyslipidemia Code(s): E78.5 - HYPERLIPIDEMIA, UNSPECIFIED Status: Chronic (4) HTN (hypertension) Code(s): I10 - ESSENTIAL (PRIMARY) HYPERTENSION Status: Chronic (5) Pain in the abdomen Code(s): R10.9 - UNSPECIFIED ABDOMINAL PAIN Status: Acute - Plan Pt was started on Abx and is scheduled for HIDA scan today. will continue thiamine and folic acid. pt encouraged against drinking. Continue pt on antivert to assist with dizziness. Will continue to monitor patient's pain. pt's HIDA indicated acalculous cholecystitis will get surgery to see this patient. will keep him npo.
[2019-12-09] MEDS: Morphine 2 MG/ML VIAL SLOW IVP PRN ×2 (12:10→19:39)
--- NOTE | 2019-12-09 12:28 | NM ---
Exam: Nuclear medicine HIDA scan HISTORY: Abdominal pain. Elevated liver function tests. Gallbladder distention COMPARISON: None Correlation: Gallbladder ultrasound 12/07/2019 TECHNIQUE: Patient was ministered 5.2 mCi of technetium 99m mebrofenin intravenously. Patient's gallb ladder ejection fraction was determined after the patient ingested 8 ounces of ensure orally. FINDINGS: Appropriate uptake of the radiotracer by the hepatic parenchyma. There is prompt excretion into the intrahepatic biliary system. Localization of radiotracer in the gallbladder is noted. There is passage of radiotracer from the common bile duct into small bowel loops Gallbladder ejection fraction: 4% IMPRESSION: 1. No scintigraphic evidence of acute cholecystitis. 2. Diminished gallbladder ejection fraction. Correlate for acalculous cholecystitis versus gallbladde r akinesia.
[2019-12-09 13:21] VITALS: BMI 26.3
[2019-12-10] MEDS: Piperacillin/Tazobactam 3.375 GM in Sodium Chloride 0.9% 100 ML IVPB SCH ×2 (00:09→06:09)
[2019-12-10 04:47] LABS: ALT (SGPT) 62 U/L (8-55); AST (SGOT) 55 U/L (5-34); Albumin 3.6 g/dL (3.5-5.0); Alkaline Phosphatase 228 U/L (40-110); Anion Gap 11 mmol/L (10-20); BUN (Urea Nitrogen) 5 mg/dL (8.4-25.7); Bilirubin, Total 0.6 mg/dL (0.2-1.2); Calc. Creatinine Clearance 114 mL/min (70-130); Calcium 8.4 mg/dL (7.8-10.44); Carbon Dioxide 24 mmol/L (22-29); Chloride 105 mmol/L (98-107); Estimated GFR-MDRD Greater than 90; Globulin 3.6 g/dL (2.4-3.5); Glucose 98 mg/dL (70-105); Potassium 4.6 mmol/L (3.5-5.1); Protein, Total 7.2 g/dL (6.0-8.3); Sodium 135 mmol/L (136-145)
[2019-12-10] MEDS: Levothyroxine Sodium 125 MCG TAB PO SCH (06:09)
[2019-12-10] MEDS: Meclizine HCl 12.5 MG TAB PO SCH (08:38)
[2019-12-10] MEDS: Pantoprazole 40 MG VIAL IVP SCH (08:39)
[2019-12-10] MEDS: Magnesium Oxide 400 MG TAB PO SCH (08:39)
[2019-12-10] MEDS: Folic Acid 1 MG TAB PO SCH (08:39)
[2019-12-10] MEDS: Thiamine 100 MG TAB PO SCH (08:39)
[2019-12-10] MEDS: Cyanocobalamin (Vitamin B-12) 1,000 MCG TAB PO SCH (08:39)
--- NOTE | 2019-12-10 09:11 | CON ---
DATE OF CONSULTATION: 12/10/2019 CHIEF COMPLAINT: Shakiness, abdominal pain. HISTORY OF PRESENT ILLNESS: This is a 59-year-old who presents with a history of alcohol withdrawal, admitted to the hospitalist service, developed more abdominal pain especially after eating and that pain he says now has improved. He was able to tolerate clear liquids yesterday without difficulty. He is hungry this morning. He had ultrasound and CT showing distended gallbladder. His HIDA scan showed decreased ejection fraction of 4%, but no acalculous cholecystitis. He had good drainage of radioactive uptake into the duodenum. The patient denies previous biliary colic, jaundice, or pancreatitis, history of heavy alcohol intake. PAST MEDICAL HISTORY: Includes diabetes mellitus type 2, hypothyroidism, hyperlipidemia, and alcohol abuse. PAST SURGICAL HISTORY: Hernia repair. MEDICATIONS: Taken daily, none at home. ALLERGIES: NO KNOWN DRUG ALLERGIES. FAMILY HISTORY: Noncontributory to GI related malignancy or anesthetic related complication. SOCIAL HISTORY: Lives in [place] with family and was drinking 12 beers a day. Smokes occasionally, works in construction. REVIEW OF SYSTEMS: Ten-system review of systems is otherwise negative unless described above. PHYSICAL EXAMINATION: VITAL SIGNS: Blood pressure 155/93, pulse 78, respirations 18, and temperature 97.6. HEENT: Sclerae anicteric. Oropharynx clear. NECK: No lymphadenopathy. CHEST: Clear. HEART: Regular rate. ABDOMEN: Soft, nontender, and nondistended. EXTREMITIES: No ischemia or edema to extremities. LABORATORY DATA: White blood cell count is 2, hemoglobin is 9, platelet count is 41. Sodium 135, potassium 4.6, creatinine 0.75. Liver function tests, bilirubin is normal. AST and ALT are 55 and 62, and his alkaline phosphatase is 228. RADIOLOGIC STUDIES: As above. ASSESSMENT: 1. Chronic biliary dyskinesia versus hepatic dysfunction secondary to alcohol withdrawal. 2. Diabetes mellitus, type 2. PLAN: I had a long discussion with Mr. Moser this morning. He does not have a calculous cholecystitis. He does have uptake of radioactive marker into the gallbladder. He does have decreased ejection fraction, which can be causative for intermittent right upper quadrant pain associated with nausea and bloating. This does not represent an urgent need for surgery. I would recommend he finishes his alcohol withdrawal, let him eat, see how he does. If his pain persists, we would potentially consider laparoscopic cholecystectomy during this hospitalization, but otherwise would have him follow up in my office as an outpatient to see how he is doing. They are going to call me if he does not tolerate the regular food today. Job ID: [id number]
[2019-12-10 09:18] VITALS: BP 154/90; TEMP 99
[2019-12-10] MEDS: Sodium Chloride 0.9% 1,000 ML IV SCH (10:13)
--- NOTE | 2019-12-10 13:18 | DIS ---
DATE OF ADMISSION: 12/07/2019 DATE OF DISCHARGE: 12/10/2019 HOSPITAL COURSE: Mr. Moser is a 59-year-old male with a medical history of alcohol abuse and alcohol withdrawal, who presents with abdominal pain and vomiting. He was diagnosed with alcohol withdrawal and alcoholic fatty liver disease. He was monitored for more than 48 hours and required very limited amounts of benzodiazepines. Abdominal CT, abdominal ultrasound, and HIDA scan were carried out and were negative for acute cholecystitis. He did have a cholestatic pattern that is most likely because of his alcoholic fatty liver disease. He was discharged home with minor hand tremors and no other complaints. PHYSICAL EXAMINATION: VITAL SIGNS: Blood pressure was 154/90, pulse 75, respiratory rate 18, oxygen saturation 99% on room air, temperature 99.0 Fahrenheit. GENERAL: Lying comfortably in bed. Obese. HEENT: Normocephalic and atraumatic. CARDIAC: Regular rate and rhythm. No murmur, gallops, or rubs. LUNGS: Clear to auscultation bilaterally. No wheezing, rales, or rhonchi. ABDOMEN: Soft, nontender, nondistended. Normal bowel sounds. EXTREMITIES: Mild bilateral tremors when stretching out his hands, improved compared to admission. Even though the patient was complaining about right hand numbness in the distribution of the ulnar nerve, exam findings were unremarkable. PSYCHIATRIC: Mildly anxious in regard to his medical condition, but improved after being educated. Alert and oriented x3. MEDICATION LIST: Old medications: 1. Levothyroxine 125 mcg daily. 2. Atorvastatin 40 mg at bedtime. New medications: 1. Metformin 500 mg p.o. b.i.d. with meals. 2. Multivitamin daily. Discontinued medications: No discontinued medications. Modified medications: No modified medications. Prior to discharge, it was emphasized to the patient the importance of following up with his primary care physician and to abstain from alcohol. Job ID: [id number]
[2019-12-10] MEDS ORDERED: metFORMIN 500 MG TAB PO SCH (17:00)
== END 2019-12-10 12:09 | disposition home or self-care (01) | DRG 442 ==
LOC: ERS 07:31 → 2NO 11:44 → OBSVTOIN 11:44
PROVIDERS: ADMIT Internal Medicine; ATTEND Internal Medicine
PROC: HZ2ZZZZ Detoxification Services for Substance Abuse Treatment (ICD-10-PCS; principal; 2019-12-07)
DX: K70.0 Alcoholic fatty liver (principal); E87.2 Acidosis; D61.818 Other pancytopenia; E87.1 Hypo-osmolality and hyponatremia; F10.239 Alcohol dependence with withdrawal, unspecified; Y90.0 Blood alcohol level of less than 20 mg/100 ml; Z20.828 Contact with and (suspected) exposure to other viral communicable diseases; R25.1 Tremor, unspecified; E66.9 Obesity, unspecified; E11.9 Type 2 diabetes mellitus without complications; E03.9 Hypothyroidism, unspecified; E78.5 Hyperlipidemia, unspecified; F17.210 Nicotine dependence, cigarettes, uncomplicated; E86.0 Dehydration; Z79.84 Long term (current) use of oral hypoglycemic drugs; Z68.25 Body mass index [BMI] 25.0-25.9, adult; Z79.890 Hormone replacement therapy; Z79.899 Other long term (current) drug therapy
CPT/HCPCS: 36415; 36416; 71045; 74177; 76705; 78227; 80053; 80074; 80306; 80307; 81003; 82140; 82977; 83605; 83690; 83735; 84100; 84443; 84484; 85007; 85025; 85027; 85610; 85730; 87635; 93005; 96361; 96372; 96374; 96375; 96376; A9537; C9113; G0378; J2060; J2270; J2405; J2543; J3411; J3475; J3490; J7042; U0003

== ENCOUNTER 2020-12-20 14:35 | Emergency (ER) | payer OTHER, SELFPAY ==
[2020-12-20 16:38] LABS: #Monocytes 0.1 thou/uL (0.11-0.59); #Neutrophils 2.8 thou/uL (1.40-6.50); %Basophils 0.8 % (0.0-1.0); %Eosinophils 0.4 % (0.0-10.0); %Lymphocytes 24.2 % (21.0-51.0); %Monocytes 2.6 % (0.0-10.0); Hemoglobin 13.3 g/dL (14.0-18.0); Mean Corpuscular HGB CONC 34.4 g/dL (32.0-36.0); Mean Corpuscular Hemoglobin 29.9 pg (27.0-31.0); RBC Distribution Width 16.7 % (11.5-14.5); Red Blood Cell (RBC) Count 4.43 mill/uL (4.70-6.10); White Blood Cell (WBC) Count 3.9 thou/uL (4.8-10.8)
[2020-12-20 16:49] LABS: Acetaminophen Less than 6.0 mcg/mL (10.0-30.0); Salicylate Less than 8.0 mg/dL (15.0-30.0)
[2020-12-20 16:50] LABS: Bilirubin Negative (Negative); Blood, Urine Negative (Negative); Clarity Clear (Clear); Glucose, Urine (Dipstick) Normal (Negative); Ketone, Urine Negative (Negative); Leukocyte Negative Leu/uL (Negative); Nitrite Negative (Negative); Protein, Urine (Dipstick) Negative (Neg-Trace); Specific Gravity, Urine 1.003 (1.002-1.036); Urobilinogen Normal mg/dL (Less than 2)
[2020-12-20 16:50] LABS: ALT (SGPT) 65 U/L (8-55); AST (SGOT) 84 U/L (5-34); Albumin 4.2 g/dL (3.5-5.0); Alkaline Phosphatase 83 U/L (40-110); Anion Gap 16 mmol/L (10-20); BUN (Urea Nitrogen) 5 mg/dL (8.4-25.7); Bilirubin, Total 0.6 mg/dL (0.2-1.2); CK (CPK) 333 U/L (30-200); Calc. Creatinine Clearance 0 mL/min (70-130); Carbon Dioxide 26 mmol/L (22-29); Chloride 101 mmol/L (98-107); Globulin 3.8 g/dL (2.4-3.5); Glucose 135 mg/dL (70-105); Potassium 3.8 mmol/L (3.5-5.1); Sodium 139 mmol/L (136-145)
[2020-12-20 16:53] LABS: Mean Platelet Volume 10.1 fL (7.4-10.4); Platelet Count 48 thou/uL (130-400); Platelet Morphology Comment Appears Decreased; RBC Morphology Normal
[2020-12-20 16:58] LABS: Amphetamine Not Detected (NotDetected); Barbiturates Screen Not Detected (NotDetected); Benzodiazepine Screen Not Detected (NotDetected); Cocaine Metabolite Screen Not Detected (NotDetected); Methadone Not Detected (NotDetected); Methamphetamine Not Detected (NotDetected); Opiate Screen Not Detected (NotDetected); Oxycodone Screen Not Detected (NotDetected); Phencyclidine (PCP) Not Detected (NotDetected); THC/Cannabinoid Screen Not Detected (NotDetected); Tricyclic Screen Not Detected (NotDetected)
[2020-12-20 17:07] LABS: Alcohol 405 mg/dL (Less than 10); Alcohol 416 mg/dL (Less than 10)
[2020-12-20] MEDS ORDERED: Lorazepam 2 MG/ML VIAL ONE (18:45)
[2020-12-20] MEDS ORDERED: Multivitamins, Adult 10 ML, Thiamine HCl 100 MG, Folic Acid 1 MG in Dextrose 5 %-0.45 %... IV SCH (19:15)
[2020-12-21] MEDS ORDERED: Acetaminophen 500 MG TAB ONE ×2 (00:21)
[2020-12-21] MEDS ORDERED: Ketorolac Tromethamine 30 MG/ML VIAL ONE (00:52)
[2020-12-21] MEDS ORDERED: Ondansetron PF 4 MG/2 ML Vial ONE (00:52)
[2020-12-21] MEDS ORDERED: Lorazepam 2 MG/ML VIAL ONE ×2 (02:59→09:54)
[2020-12-21] MEDS ORDERED: Prochlorperazine Edisylate 10 MG in Sodium Chloride 0.9% 50 ML IVPB SCH (07:15)
[2020-12-21] MEDS ORDERED: Acetaminophen 325 MG TAB ONE (08:02)
[2020-12-21] MEDS ORDERED: chlordiazePOXIDE HCl 25 MG CAP ONE (08:53)
== END 2020-12-21 14:20 | disposition home or self-care (01) ==
LOC: ERS 14:35
DX: F10.129 Alcohol abuse with intoxication, unspecified (principal); Y90.6 Blood alcohol level of 120-199 mg/100 ml; S00.83XA Contusion of other part of head, initial encounter; W22.8XXA Striking against or struck by other objects, initial encounter
CPT/HCPCS: 36415; 36416; 70450; 72125; 80053; 80306; 80307; 81003; 82550; 85025; 93005; 96365; 96366; 96367; 96375; 96376; J0780; J1885; J2060; J2405; J3411; J7042

== ENCOUNTER 2021-01-04 13:59 | Emergency (ER) | payer SELFPAY ==
[2021-01-04 15:00] LABS: #Lymphocytes 0.6 thou/uL (1.20-3.40); #Monocytes 0.2 thou/uL (0.11-0.59); %Basophils 0.6 % (0.0-1.0); %Eosinophils 1.2 % (0.0-10.0); %Lymphocytes 19.8 % (21.0-51.0); %Monocytes 7.6 % (0.0-10.0); %Neutrophils 70.8 % (42.0-75.0); Hemoglobin 12.6 g/dL (14.0-18.0); Mean Corpuscular HGB CONC 34.2 g/dL (32.0-36.0); Mean Corpuscular Hemoglobin 30.7 pg (27.0-31.0); Mean Corpuscular Volume 89.7 fL (78.0-98.0); Mean Platelet Volume 8.6 fL (7.4-10.4); Platelet Count 59 thou/uL (130-400); RBC Distribution Width 17.9 % (11.5-14.5); White Blood Cell (WBC) Count 2.9 thou/uL (4.8-10.8)
[2021-01-04 15:17] LABS: ALT (SGPT) 133 U/L (8-55); AST (SGOT) 273 U/L (5-34); Albumin 3.7 g/dL (3.5-5.0); Alkaline Phosphatase 120 U/L (40-110); Anion Gap 18 mmol/L (10-20); BUN (Urea Nitrogen) Less than 4 mg/dL (8.4-25.7); Bilirubin, Total 0.4 mg/dL (0.2-1.2); Calc. Creatinine Clearance 0 mL/min (70-130); Calcium 8.8 mg/dL (7.8-10.44); Carbon Dioxide 20 mmol/L (22-29); Chloride 101 mmol/L (98-107); Globulin 3.6 g/dL (2.4-3.5); Glucose 115 mg/dL (70-105); Potassium 3.5 mmol/L (3.5-5.1); Protein, Total 7.3 g/dL (6.0-8.3); Sodium 135 mmol/L (136-145)
[2021-01-04] MEDS ORDERED: Acetaminophen 500 MG TAB ONE (15:18)
[2021-01-04] MEDS ORDERED: Metoclopramide HCl 10 MG/2 ML VIAL ONE (15:56)
[2021-01-04] MEDS ORDERED: diphenhydrAMINE 50 MG/ML VIAL ONE (15:56)
[2021-01-04] MEDS ORDERED: Prochlorperazine 10 MG/2 ML VIAL ONE (16:01)
== END 2021-01-04 23:36 | disposition home or self-care (01) ==
LOC: ERS 13:59
DX: S09.90XA Unspecified injury of head, initial encounter (principal); D64.9 Anemia, unspecified; R74.01 Elevation of levels of liver transaminase levels; Y04.8XXA Assault by other bodily force, initial encounter; E11.9 Type 2 diabetes mellitus without complications; Z79.84 Long term (current) use of oral hypoglycemic drugs; F17.210 Nicotine dependence, cigarettes, uncomplicated
CPT/HCPCS: 36415; 70450; 71045; 72125; 80053; 84484; 85025; 93005; 96365; 96366; 96375; J0780; J1200; J2765

== ENCOUNTER 2021-01-05 19:53 | Emergency (ER) | payer SELFPAY ==
[2021-01-05] MEDS ORDERED: Ondansetron ODT 4 MG TAB ONE (20:45)
[2021-01-05] MEDS ORDERED: Acetaminophen 500 MG TAB ONE (20:45)
== END 2021-01-05 23:47 | disposition home or self-care (01) ==
LOC: ERS 19:53
DX: S00.211A Abrasion of right eyelid and periocular area, initial encounter (principal); F10.10 Alcohol abuse, uncomplicated; W18.30XA Fall on same level, unspecified, initial encounter; Z79.84 Long term (current) use of oral hypoglycemic drugs; E11.9 Type 2 diabetes mellitus without complications; F17.210 Nicotine dependence, cigarettes, uncomplicated
CPT/HCPCS: 70450; Q0162

== ENCOUNTER 2021-01-17 14:25 | Inpatient (IN) | payer SELFPAY ==
[~2021-01-17 14:25] MED LIST changes: -ISOVUE-370 76%-LOCM 1 ML ONE; +Iopamidol-370 76% 500 ML 1 ML ONE
[2021-01-17 14:59] LABS: #Eosinphils 0.1 thou/uL (0.0-0.7); #Lymphocytes 0.7 thou/uL (1.20-3.40); #Monocytes 0.7 thou/uL (0.11-0.59); #Neutrophils 3.9 thou/uL (1.40-6.50); %Basophils 0.3 % (0.0-1.0); %Eosinophils 1.1 % (0.0-10.0); %Lymphocytes 12.9 % (21.0-51.0); %Monocytes 12.1 % (0.0-10.0); %Neutrophils 73.6 % (42.0-75.0); Hemoglobin 13.9 g/dL (14.0-18.0); Mean Corpuscular HGB CONC 34.8 g/dL (32.0-36.0); Mean Corpuscular Hemoglobin 31.9 pg (27.0-31.0); Mean Corpuscular Volume 91.4 fL (78.0-98.0); Mean Platelet Volume 8.7 fL (7.4-10.4); Platelet Count 136 thou/uL (130-400); RBC Distribution Width 18.1 % (11.5-14.5); Red Blood Cell (RBC) Count 4.35 mill/uL (4.70-6.10); White Blood Cell (WBC) Count 5.4 thou/uL (4.8-10.8)
[2021-01-17 15:22] LABS: Anisocytosis SLIGHT = 6-15 cells (100X) (0-5/hpf); MDiff Complete? YES; Platelet Morphology Comment Appears Adequate; Target Cells SLIGHT = 2-5 cells (100X) (0-1/hpf)
[2021-01-17 15:46] LABS: ALT (SGPT) 275 U/L (8-55); AST (SGOT) 398 U/L (5-34); Albumin 3.5 g/dL (3.5-5.0); Alkaline Phosphatase 180 U/L (40-110); Anion Gap 19 mmol/L (10-20); BUN (Urea Nitrogen) 7 mg/dL (8.4-25.7); Bilirubin, Total 0.9 mg/dL (0.2-1.2); Calc. Creatinine Clearance 0 mL/min (70-130); Calcium 9.2 mg/dL (7.8-10.44); Carbon Dioxide 20 mmol/L (22-29); Chloride 85 mmol/L (98-107); Globulin 4.2 g/dL (2.4-3.5); Glucose 135 mg/dL (70-105); Lipase 149 U/L (8-78); Potassium 3.5 mmol/L (3.5-5.1); Protein, Total 7.7 g/dL (6.0-8.3); Sodium 120 mmol/L (136-145)
[2021-01-17] MEDS ORDERED: Acetaminophen 500 MG TAB ONE (16:07)
[2021-01-17 18:45] LABS: Bilirubin Negative (Negative); Blood, Urine Negative (Negative); Clarity Clear (Clear); Glucose, Urine (Dipstick) Normal (Negative); Ketone, Urine Negative (Negative); Leukocyte Negative Leu/uL (Negative); Nitrite Negative (Negative); Protein, Urine (Dipstick) Negative (Neg-Trace); Specific Gravity, Urine 1.004 (1.002-1.036); Urobilinogen Normal mg/dL (Less than 2)
[2021-01-17 19:37] LABS: SARS-CoV-2 NAA Rapid Test Not Detected (NotDetected)
[2021-01-17] MEDS ORDERED: HYDROcodone/Acetaminophen 5/325 mg Tablet PO PRN (19:59)
[2021-01-17] MEDS ORDERED: Senokot S 8.6-50 MG TAB PO PRN (19:59)
[2021-01-17] MEDS ORDERED: Bisacodyl 5 MG TAB PO PRN (19:59)
[2021-01-17] MEDS ORDERED: HYDROcodone/Acetaminophen 7.5/325 mg Tablet PO PRN (19:59)
[2021-01-17] MEDS ORDERED: Morphine 2 MG/ML VIAL ONE (20:43)
[2021-01-17] MEDS ORDERED: Ondansetron PF 4 MG/2 ML Vial ONE (20:44)
[2021-01-17] MEDS ORDERED: hydrALAZINE 20 MG/ML VIAL SLOW IVP PRN (20:50)
[2021-01-17] MEDS: Morphine 2 MG/ML VIAL SLOW IVP PRN (20:50)
[2021-01-17] MEDS: Ondansetron PF 4 MG/2 ML Vial IVP PRN (20:51)
[2021-01-17 20:55] VITALS: BMI 25.0
[2021-01-17] MEDS ORDERED: Thiamine 100 MG TAB ONE (21:39)
[2021-01-17] MEDS ORDERED: Folic Acid 1 MG TAB ONE (21:39)
[2021-01-17] MEDS ORDERED: Pantoprazole 40 MG VIAL ONE (21:39)
[2021-01-17] MEDS ORDERED: Nicotine 14 MG PATCH ONE (21:44)
[2021-01-17] MEDS: Folic Acid 1 MG TAB PO SCH (21:50)
[2021-01-17] MEDS: Cyanocobalamin (Vitamin B-12) 1,000 MCG TAB PO SCH (21:50)
[2021-01-17] MEDS: Pantoprazole 40 MG VIAL IVP SCH (21:51)
[2021-01-17] MEDS: Nicotine 14 MG PATCH TD SCH (21:51)
[2021-01-17] MEDS: Thiamine 100 MG TAB PO SCH (21:51)
[2021-01-17] MEDS ORDERED: Acetaminophen 325 MG TAB ONE (23:21)
[2021-01-17] MEDS ORDERED: Calcium Carbonate 500 MG ChewTAB ONE (23:21)
[2021-01-17] MEDS: Calcium Carbonate 500 MG ChewTAB PO PRN (23:25)
[2021-01-17] MEDS: Acetaminophen 325 MG TAB PO PRN (23:25)
[2021-01-18] MEDS: Morphine 2 MG/ML VIAL SLOW IVP PRN ×4 (01:48→19:25)
[2021-01-18] MEDS: Ondansetron PF 4 MG/2 ML Vial IVP PRN (01:51)
[2021-01-18] MEDS: Lorazepam 2 MG/ML VIAL SLOW IVP PRN ×4 (04:26→21:09)
[2021-01-18 06:26] LABS: #Eosinphils 0.1 thou/uL (0.0-0.7); #Lymphocytes 0.4 thou/uL (1.20-3.40); #Monocytes 0.5 thou/uL (0.11-0.59); #Neutrophils 4.1 thou/uL (1.40-6.50); %Basophils 0.5 % (0.0-1.0); %Eosinophils 1.4 % (0.0-10.0); %Lymphocytes 8.5 % (21.0-51.0); %Monocytes 8.9 % (0.0-10.0); %Neutrophils 80.7 % (42.0-75.0); Hemoglobin 13.2 g/dL (14.0-18.0); Mean Corpuscular HGB CONC 34.2 g/dL (32.0-36.0); Mean Corpuscular Volume 93.5 fL (78.0-98.0); Mean Platelet Volume 8.5 fL (7.4-10.4); Platelet Count 122 thou/uL (130-400); RBC Distribution Width 18.3 % (11.5-14.5); Red Blood Cell (RBC) Count 4.13 mill/uL (4.70-6.10); White Blood Cell (WBC) Count 5.1 thou/uL (4.8-10.8)
[2021-01-18 06:39] LABS: Hemoglobin A1c 6.2 % (4.0-6.0)
[2021-01-18 06:42] LABS: ALT (SGPT) 227 U/L (8-55); AST (SGOT) 293 U/L (5-34); Albumin 3.2 g/dL (3.5-5.0); Alkaline Phosphatase 154 U/L (40-110); Anion Gap 13 mmol/L (10-20); BUN (Urea Nitrogen) 9 mg/dL (8.4-25.7); Bilirubin, Total 1.1 mg/dL (0.2-1.2); Calc. Creatinine Clearance 110 mL/min (70-130); Calcium 8.7 mg/dL (7.8-10.44); Carbon Dioxide 23 mmol/L (22-29); Chloride 93 mmol/L (98-107); Globulin 3.8 g/dL (2.4-3.5); Glucose 86 mg/dL (70-105); Potassium 3.7 mmol/L (3.5-5.1); Sodium 125 mmol/L (136-145)
[2021-01-18] MEDS: Triple Antibiotic Oint 1 GM Packet TOP SCH ×2 (08:49→21:07)
[2021-01-18] MEDS ORDERED: Sodium Chloride 0.9% 1,000 ML IV SCH (11:30)
[2021-01-18] MEDS ORDERED: Dextrose 5% in Water 1,000 ML IV PRN (11:39)
[2021-01-18] MEDS ORDERED: HumaLOG 300 UNITS/3 ML VIAL SC PRN (11:39)
[2021-01-18] MEDS ORDERED: Dextrose 50% Abboject 50 ML SYRINGE SLOW IVP PRN (11:39)
[2021-01-18] MEDS ORDERED: Hydrocortisone/Pramoxine (Proctofoam HC) 10 GM BOX PR SCH (12:00)
[2021-01-18] MEDS: Acetaminophen 325 MG TAB PO PRN (17:09)
[2021-01-18] MEDS: Calcium Carbonate 500 MG ChewTAB PO PRN (17:10)
[2021-01-18] MEDS ORDERED: Preparation H HC 1% Cream 26 GM TUBE TOP SCH (21:00)
[2021-01-18] MEDS: Hydrocortisone/Pramoxine (Proctofoam HC) 10 GM BOX PR SCH (21:06)
[2021-01-18] MEDS: Folic Acid 1 MG TAB PO SCH (21:06)
[2021-01-18] MEDS: Thiamine 100 MG TAB PO SCH (21:06)
[2021-01-18] MEDS: Tamsulosin HCl 0.4 MG CAP PO SCH (21:06)
[2021-01-18] MEDS: Cyanocobalamin (Vitamin B-12) 1,000 MCG TAB PO SCH (21:06)
[2021-01-18] MEDS: Pantoprazole 40 MG VIAL IVP SCH (21:07)
[2021-01-18] MEDS: Nicotine 14 MG PATCH TD SCH (21:09)
[2021-01-19] MEDS: Morphine 2 MG/ML VIAL SLOW IVP PRN ×4 (00:18→17:40)
[2021-01-19] MEDS: Ondansetron PF 4 MG/2 ML Vial IVP PRN (00:43)
[2021-01-19] MEDS: Acetaminophen 325 MG TAB PO PRN ×2 (04:49→20:31)
[2021-01-19] MEDS: Levothyroxine Sodium 75 MCG TAB PO SCH (04:51)
[2021-01-19 04:55] LABS: #Eosinphils 0.1 thou/uL (0.0-0.7); #Lymphocytes 0.5 thou/uL (1.20-3.40); #Monocytes 0.3 thou/uL (0.11-0.59); #Neutrophils 3.5 thou/uL (1.40-6.50); %Basophils 0.3 % (0.0-1.0); %Eosinophils 3.3 % (0.0-10.0); %Lymphocytes 11.7 % (21.0-51.0); %Monocytes 6.5 % (0.0-10.0); %Neutrophils 78.2 % (42.0-75.0); Hemoglobin 12.7 g/dL (14.0-18.0); Mean Corpuscular HGB CONC 33.7 g/dL (32.0-36.0); Mean Corpuscular Hemoglobin 31.6 pg (27.0-31.0); Mean Corpuscular Volume 93.9 fL (78.0-98.0); Mean Platelet Volume 8.6 fL (7.4-10.4); Platelet Count 115 thou/uL (130-400); Red Blood Cell (RBC) Count 4.03 mill/uL (4.70-6.10); White Blood Cell (WBC) Count 4.5 thou/uL (4.8-10.8)
[2021-01-19 05:04] LABS: ALT (SGPT) 166 U/L (8-55); AST (SGOT) 192 U/L (5-34); Alkaline Phosphatase 141 U/L (40-110); Anion Gap 12 mmol/L (10-20); BUN (Urea Nitrogen) 8 mg/dL (8.4-25.7); Bilirubin, Total 0.9 mg/dL (0.2-1.2); CK (CPK) 127 U/L (30-200); Calc. Creatinine Clearance 108 mL/min (70-130); Calcium 7.8 mg/dL (7.8-10.44); Carbon Dioxide 27 mmol/L (22-29); Chloride 94 mmol/L (98-107); Glucose 89 mg/dL (70-105); Lipase 79 U/L (8-78); Potassium 3.6 mmol/L (3.5-5.1); Sodium 129 mmol/L (136-145)
[2021-01-19 05:23] LABS: HBCM Index 0.07 S/CO (0-0.79); HBSAg Index 0.22 S/CO (0-0.99); Hep A IgM AB Non-Reactive (NonReactive); Hep A IgM S/CO 0.16 S/CO (0-0.79); Hep B Surf Ag Non-Reactive S/CO (NonReactive); Hep C IgG Ab Non-Reactive (NonReactive); Hepatitis B Core IgM Abs Non-Reactive (NonReactive)
[2021-01-19] MEDS ORDERED: Potassium Chloride 20 MEQ TAB PO SCH (10:15)
[2021-01-19] MEDS: Amlodipine 10 MG TAB PO SCH (10:19)
[2021-01-19] MEDS: Lorazepam 2 MG/ML VIAL SLOW IVP PRN ×3 (10:59→20:33)
[2021-01-19] MEDS: Hydrocortisone/Pramoxine (Proctofoam HC) 10 GM BOX PR SCH ×2 (11:00→20:33)
[2021-01-19] MEDS ORDERED: Sodium Chloride 0.9% 1,000 ML IV SCH (11:00)
[2021-01-19] MEDS: Triple Antibiotic Oint 1 GM Packet TOP SCH ×2 (11:02→20:33)
[2021-01-19] MEDS: Pantoprazole 40 MG VIAL IVP SCH (20:32)
[2021-01-19] MEDS: Thiamine 100 MG TAB PO SCH (20:32)
[2021-01-19] MEDS: Folic Acid 1 MG TAB PO SCH (20:32)
[2021-01-19] MEDS: Nicotine 14 MG PATCH TD SCH (20:32)
[2021-01-19] MEDS: Cyanocobalamin (Vitamin B-12) 1,000 MCG TAB PO SCH (20:32)
[2021-01-19] MEDS: Tamsulosin HCl 0.4 MG CAP PO SCH (20:32)
[2021-01-20] MEDS: Morphine 2 MG/ML VIAL SLOW IVP PRN ×3 (00:24→19:37)
[2021-01-20] MEDS: Calcium Carbonate 500 MG ChewTAB PO PRN ×2 (00:30→15:55)
[2021-01-20] MEDS: Lorazepam 2 MG/ML VIAL SLOW IVP PRN ×4 (02:59→22:00)
[2021-01-20] MEDS: Ondansetron PF 4 MG/2 ML Vial IVP PRN (02:59)
[2021-01-20 04:56] LABS: ALT (SGPT) 174 U/L (8-55); AST (SGOT) 200 U/L (5-34); Alkaline Phosphatase 140 U/L (40-110); Anion Gap 11 mmol/L (10-20); BUN (Urea Nitrogen) 4 mg/dL (8.4-25.7); Bilirubin, Total 0.9 mg/dL (0.2-1.2); Calc. Creatinine Clearance 119 mL/min (70-130); Calcium 7.7 mg/dL (7.8-10.44); Carbon Dioxide 25 mmol/L (22-29); Chloride 95 mmol/L (98-107); Glucose 127 mg/dL (70-105); Magnesium 1.9 mg/dL (1.6-2.6); Potassium 3.3 mmol/L (3.5-5.1); Sodium 128 mmol/L (136-145)
[2021-01-20 05:24] LABS: #Eosinphils 0.1 thou/uL (0.0-0.7); #Lymphocytes 0.6 thou/uL (1.20-3.40); #Monocytes 0.3 thou/uL (0.11-0.59); #Neutrophils 2.9 thou/uL (1.40-6.50); %Basophils 0.3 % (0.0-1.0); %Eosinophils 2.6 % (0.0-10.0); %Lymphocytes 14.4 % (21.0-51.0); %Monocytes 7.8 % (0.0-10.0); %Neutrophils 74.9 % (42.0-75.0); Mean Corpuscular HGB CONC 33.7 g/dL (32.0-36.0); Mean Corpuscular Hemoglobin 32.1 pg (27.0-31.0); Mean Corpuscular Volume 95.3 fL (78.0-98.0); Mean Platelet Volume 8.2 fL (7.4-10.4); Platelet Count 128 thou/uL (130-400); Red Blood Cell (RBC) Count 3.73 mill/uL (4.70-6.10); White Blood Cell (WBC) Count 3.8 thou/uL (4.8-10.8)
[2021-01-20] MEDS: Levothyroxine Sodium 75 MCG TAB PO SCH (06:38)
[2021-01-20] MEDS: Amlodipine 10 MG TAB PO SCH (09:13)
[2021-01-20] MEDS: Triple Antibiotic Oint 1 GM Packet TOP SCH ×2 (09:13→19:38)
[2021-01-20] MEDS: Hydrocortisone/Pramoxine (Proctofoam HC) 10 GM BOX PR SCH ×2 (09:14→19:40)
[2021-01-20] MEDS: Acetaminophen 325 MG TAB PO PRN (09:17)
[2021-01-20] MEDS ORDERED: Magnesium Sulfate 3 GM in Sodium Chloride 0.9% 100 ML IVPB SCH (10:00)
[2021-01-20] MEDS: Potassium Chloride 20 MEQ TAB PO SCH ×2 (11:12→12:59)
[2021-01-20] MEDS: Sodium Chloride 1 GM TAB PO SCH ×2 (15:51→19:39)
[2021-01-20 17:23] LABS: Anion Gap 12 mmol/L (10-20); BUN (Urea Nitrogen) 4 mg/dL (8.4-25.7); Calc. Creatinine Clearance 110 mL/min (70-130); Calcium 8.2 mg/dL (7.8-10.44); Carbon Dioxide 26 mmol/L (22-29); Chloride 97 mmol/L (98-107); Glucose 109 mg/dL (70-105); Sodium 131 mmol/L (136-145)
[2021-01-20] MEDS: Pantoprazole 40 MG VIAL IVP SCH (19:38)
[2021-01-20] MEDS: Cyanocobalamin (Vitamin B-12) 1,000 MCG TAB PO SCH (19:39)
[2021-01-20] MEDS: Thiamine 100 MG TAB PO SCH (19:39)
[2021-01-20] MEDS: Nicotine 14 MG PATCH TD SCH (19:39)
[2021-01-20] MEDS: Folic Acid 1 MG TAB PO SCH (19:39)
[2021-01-20] MEDS: Tamsulosin HCl 0.4 MG CAP PO SCH (19:40)
[2021-01-21] MEDS: Morphine 2 MG/ML VIAL SLOW IVP PRN (00:15)
[2021-01-21] MEDS: Acetaminophen 325 MG TAB PO PRN ×2 (00:17→08:46)
[2021-01-21] MEDS: Ondansetron PF 4 MG/2 ML Vial IVP PRN (02:33)
[2021-01-21] MEDS: Levothyroxine Sodium 75 MCG TAB PO SCH (05:22)
[2021-01-21 05:58] LABS: #Eosinphils 0.2 thou/uL (0.0-0.7); #Lymphocytes 0.9 thou/uL (1.20-3.40); #Monocytes 0.4 thou/uL (0.11-0.59); #Neutrophils 3.6 thou/uL (1.40-6.50); %Basophils 0.9 % (0.0-1.0); %Eosinophils 3.8 % (0.0-10.0); %Monocytes 8.4 % (0.0-10.0); Hemoglobin 12.6 g/dL (14.0-18.0); Mean Corpuscular HGB CONC 33.3 g/dL (32.0-36.0); Mean Corpuscular Hemoglobin 31.9 pg (27.0-31.0); Mean Corpuscular Volume 95.8 fL (78.0-98.0); Mean Platelet Volume 8.4 fL (7.4-10.4); Platelet Count 164 thou/uL (130-400); RBC Distribution Width 18.2 % (11.5-14.5); Red Blood Cell (RBC) Count 3.94 mill/uL (4.70-6.10); White Blood Cell (WBC) Count 5.1 thou/uL (4.8-10.8)
[2021-01-21 06:06] LABS: Phosphorus 2.1 mg/dL (2.3-4.7)
[2021-01-21 06:07] LABS: ALT (SGPT) 203 U/L (8-55); AST (SGOT) 205 U/L (5-34); Albumin 3.2 g/dL (3.5-5.0); Alkaline Phosphatase 159 U/L (40-110); Anion Gap 12 mmol/L (10-20); BUN (Urea Nitrogen) 5 mg/dL (8.4-25.7); Bilirubin, Total 0.8 mg/dL (0.2-1.2); Calc. Creatinine Clearance 111 mL/min (70-130); Calcium 8.1 mg/dL (7.8-10.44); Carbon Dioxide 22 mmol/L (22-29); Chloride 99 mmol/L (98-107); Globulin 3.2 g/dL (2.4-3.5); Glucose 170 mg/dL (70-105); Magnesium 1.9 mg/dL (1.6-2.6); Potassium 4.1 mmol/L (3.5-5.1); Protein, Total 6.4 g/dL (6.0-8.3); Sodium 129 mmol/L (136-145)
[2021-01-21] MEDS ORDERED: Potassium Chloride 20 MEQ TAB PO SCH (08:00)
[2021-01-21] MEDS: Amlodipine 10 MG TAB PO SCH (08:47)
[2021-01-21] MEDS: Sodium Chloride 1 GM TAB PO SCH (08:47)
[2021-01-21] MEDS: Triple Antibiotic Oint 1 GM Packet TOP SCH (08:47)
[2021-01-21] MEDS: Lorazepam 2 MG/ML VIAL SLOW IVP PRN (08:48)
[2021-01-21] MEDS: Hydrocortisone/Pramoxine (Proctofoam HC) 10 GM BOX PR SCH (08:49)
[2021-01-21 14:26] VITALS: BP 117/73; TEMP 99.4
== END 2021-01-21 14:00 | disposition home or self-care (01) | DRG 896 ==
LOC: ERS 14:25 → ERHOLD 19:48 → 2NO 23:57
PROVIDERS: ADMIT Student in an Organized Health Care Education/Training Program; ATTEND Internal Medicine
PROC: HZ2ZZZZ Detoxification Services for Substance Abuse Treatment (ICD-10-PCS; principal; 2021-01-17)
DX: F10.139 Alcohol abuse with withdrawal, unspecified (principal); K85.90 Acute pancreatitis without necrosis or infection, unspecified; E87.1 Hypo-osmolality and hyponatremia; R10.84 Generalized abdominal pain; E11.9 Type 2 diabetes mellitus without complications; R33.8 Other retention of urine; I15.2 Hypertension secondary to endocrine disorders; F17.210 Nicotine dependence, cigarettes, uncomplicated; K82.8 Other specified diseases of gallbladder; D69.59 Other secondary thrombocytopenia; N40.1 Benign prostatic hyperplasia with lower urinary tract symptoms; K70.10 Alcoholic hepatitis without ascites; W19.XXXA Unspecified fall, initial encounter; Z20.822 Contact with and (suspected) exposure to COVID-19; E03.9 Hypothyroidism, unspecified; X58.XXXA Exposure to other specified factors, initial encounter; Z79.84 Long term (current) use of oral hypoglycemic drugs; Z98.890 Other specified postprocedural states; Y92.009 Unspecified place in unspecified non-institutional (private) residence as the place of occurrence of the external cause; Z71.41 Alcohol abuse counseling and surveillance of alcoholic
CPT/HCPCS: 36415; 36416; 71045; 74177; 76705; 80053; 80061; 80074; 81003; 82140; 82550; 83036; 83690; 83735; 84100; 84153; 84484; 85025; 93005; C9113; J2060; J2270; J2405; J3475; J3490; J7050; Q9967; U0002

== ENCOUNTER 2024-02-13 00:44 | Emergency (ER) | payer OTHER ==
[2024-02-13 01:53] LABS: Acetaminophen Less than 10 mcg/mL (Less than 10); Alcohol 434.7 mg/dL (Less than 10); Salicylate Less than 8.0 mg/dL (Less than 8.0)
[2024-02-13 01:54] LABS: ALT (SGPT) 149 U/L (8-55); AST (SGOT) 174 U/L (5-34); Albumin 3.8 g/dL (3.4-4.8); Alkaline Phosphatase 130 U/L (40-110); Anion Gap 20 mmol/L (10-20); BUN (Urea Nitrogen) 8 mg/dL (8.4-25.7); Bilirubin, Total 0.6 mg/dL (0.2-1.2); Calc. Creatinine Clearance 0 mL/min (70-130); Calcium 9.2 mg/dL (7.8-10.44); Carbon Dioxide 18 mmol/L (23-31); Chloride 97 mmol/L (98-107); Estimated GFR 99; Globulin 4.1 g/dL (2.4-3.5); Glucose 274 mg/dL (80-115); Lipase 86 U/L (8-78); Potassium 3.4 mmol/L (3.5-5.1); Protein, Total 7.9 g/dL (5.8-8.1); Sodium 132 mmol/L (136-145)
[2024-02-13 02:19] LABS: #Basophils Less than 0.03 10x3/uL (0.0-0.2); %Basophils 0.5 % (0.0-1.0); %Eosinophils 0.7 % (0.0-10.0); %Lymphocytes 26.2 % (21.0-51.0); %Monocytes 8.2 % (0.0-10.0); %Neutrophils 63.6 % (42.0-75.0); Anisocytosis MODERATE=16-30 cells HPF (0-5); Hematocrit 38.7 % (42.0-52.0); Hemoglobin 13.2 g/dL (14.0-18.0); Macrocytosis SLIGHT = 6-15 cells HPF (0-5); Mean Corpuscular HGB CONC 34.6 g/dL (32.0-36.0); Mean Corpuscular Hemoglobin 30.3 pg (27.0-31.0); Mean Corpuscular Volume 87.8 fL (78.0-98.0); Mean Platelet Volume 9.7 fL (7.4-10.4); Platelet Adequacy Comment Platelets Decreased; Platelet Count 93 10x3/uL (130-400); Polychromasia SLIGHT = 2-3 cells HPF (0-2); Red Blood Cell (RBC) Count 4.35 mill/uL (4.70-6.10)
== END 2024-02-13 02:23 ==
LOC: ERS 00:44
DX: F10.129 Alcohol abuse with intoxication, unspecified (principal); R73.9 Hyperglycemia, unspecified; Z02.89 Encounter for other administrative examinations
CPT/HCPCS: 36415; 36416; 80053; 80307; 83690; 85025; 99284

== ENCOUNTER 2024-02-18 03:17 | Emergency (ER) | payer OTHER ==
[2024-02-18 04:39] LABS: Alcohol 146.9 mg/dL (Less than 10)
[2024-02-18 04:40] LABS: Phosphorus 2.9 mg/dL (2.3-4.7)
[2024-02-18 04:43] LABS: ALT (SGPT) 117 U/L (8-55); AST (SGOT) 103 U/L (5-34); Albumin 3.2 g/dL (3.4-4.8); Alkaline Phosphatase 134 U/L (40-110); Anion Gap 15 mmol/L (10-20); BUN (Urea Nitrogen) Less than 4 mg/dL (8.4-25.7); Bilirubin, Total 0.4 mg/dL (0.2-1.2); Calc. Creatinine Clearance 0 mL/min (70-130); Calcium 8.8 mg/dL (7.8-10.44); Carbon Dioxide 24 mmol/L (23-31); Chloride 101 mmol/L (98-107); Estimated GFR 101; Globulin 3.3 g/dL (2.4-3.5); Glucose 256 mg/dL (80-115); Magnesium 1.5 mg/dL (1.6-2.6); Protein, Total 6.5 g/dL (5.8-8.1); Sodium 137 mmol/L (136-145)
[2024-02-18 04:50] LABS: #Basophils Less than 0.03 10x3/uL (0.0-0.2); %Basophils 0.7 % (0.0-1.0); %Eosinophils 2.8 % (0.0-10.0); %Lymphocytes 23.5 % (21.0-51.0); %Monocytes 11.8 % (0.0-10.0); %Neutrophils 60.5 % (42.0-75.0); Hemoglobin 11.1 g/dL (14.0-18.0); Mean Corpuscular HGB CONC 33.6 g/dL (32.0-36.0); Mean Corpuscular Hemoglobin 30.5 pg (27.0-31.0); Mean Corpuscular Volume 90.7 fL (78.0-98.0); Mean Platelet Volume 9.9 fL (7.4-10.4); Platelet Count 122 10x3/uL (130-400); RBC Distribution Width 15.8 % (11.5-14.5); Red Blood Cell (RBC) Count 3.64 mill/uL (4.70-6.10)
[2024-02-18] MEDS ORDERED: Lorazepam 2 MG/ML VIAL ONE (05:05)
[2024-02-18] MEDS ORDERED: Ketorolac Tromethamine 30 MG (1 mL) VIAL ONE (05:06)
[2024-02-18 06:30] LABS: Bacteria/HPF None Seen HPF (None Seen); Bilirubin Negative (Negative); Blood, Urine Negative (Negative); CAUTI Indications for Culture Pelvic or flank pain; Clarity Clear (Clear); Glucose, Urine (Dipstick) Greater than 1000 mg/dL (Negative); Ketone, Urine Negative (Negative); Leukocyte Negative Leu/uL (Negative); Nitrite Negative (Negative); Protein, Urine (Dipstick) Negative (Neg-Trace); RBC/HPF 0-3 HPF (0-3); Squamous Epithelial None Seen HPF (0-3); Urobilinogen Normal mg/dL (Less than 2); WBC/HPF None Seen HPF (0-3); pH, Urine 6.5 (5.0-9.0)
[2024-02-18 06:32] LABS: Specific Gravity, Urine 1.008 (1.002-1.036)
[2024-02-18 06:34] LABS: Urine Culture Reflex No No
== END 2024-02-18 08:50 | disposition home or self-care (01) ==
LOC: ERS 03:17
DX: F10.239 Alcohol dependence with withdrawal, unspecified (principal); E11.9 Type 2 diabetes mellitus without complications; Y90.6 Blood alcohol level of 120-199 mg/100 ml
CPT/HCPCS: 36415; 36416; 80053; 80307; 81001; 82010; 83690; 83735; 84100; 85025; 93005; 96361; 96374; 96375; J1885; J2060

== ENCOUNTER 2024-02-26 02:42 | Inpatient (IN) | payer OTHER ==
[2024-02-26] MEDS ORDERED: Morphine 4 MG/ML VIAL ONE (04:13)
[2024-02-26] MEDS ORDERED: Ondansetron PF 4 MG/2 ML Vial ONE (04:13)
[2024-02-26] MEDS ORDERED: Thiamine HCl 200 MG/2 ML VIAL ONE (04:13)
[2024-02-26 04:18] LABS: #Basophils 0.04 10x3/uL (0.0-0.2); #Eosinophils 0.06 10x3/uL (0.0-0.7); #Monocytes 0.34 10x3/uL (0.11-0.59); #Neutrophils 2.38 10x3/uL (1.40-6.50); %Basophils 1.1 % (0.0-1.0); %Eosinophils 1.6 % (0.0-10.0); %Lymphocytes 23.7 % (21.0-51.0); %Monocytes 9.1 % (0.0-10.0); Hematocrit 36.7 % (42.0-52.0); Hemoglobin 12.8 g/dL (14.0-18.0); Mean Corpuscular HGB CONC 34.9 g/dL (32.0-36.0); Mean Corpuscular Hemoglobin 30.3 pg (27.0-31.0); Mean Corpuscular Volume 86.8 fL (78.0-98.0); Platelet Count 94 10x3/uL (130-400); RBC Distribution Width 17.1 % (11.5-14.5); Red Blood Cell (RBC) Count 4.23 mill/uL (4.70-6.10); White Blood Cell (WBC) Count 3.72 10x3/uL (4.8-10.8)
[2024-02-26 04:30] LABS: Alcohol 223.7 mg/dL (Less than 10)
[2024-02-26 04:33] LABS: ALT (SGPT) 125 U/L (8-55); AST (SGOT) 185 U/L (5-34); Albumin 3.4 g/dL (3.4-4.8); Alkaline Phosphatase 92 U/L (40-110); Anion Gap 26 mmol/L (10-20); BUN (Urea Nitrogen) 4 mg/dL (8.4-25.7); Bilirubin, Total 0.7 mg/dL (0.2-1.2); Calc. Creatinine Clearance 0 mL/min (70-130); Calcium 9.2 mg/dL (7.8-10.44); Carbon Dioxide 15 mmol/L (23-31); Chloride 96 mmol/L (98-107); Estimated GFR 101; Globulin 3.8 g/dL (2.4-3.5); Glucose 171 mg/dL (80-115); Lipase 46 U/L (8-78); Potassium 3.6 mmol/L (3.5-5.1); Protein, Total 7.2 g/dL (5.8-8.1); Sodium 133 mmol/L (136-145)
[2024-02-26 06:07] LABS: Actual Bicarbonate (HCO3v) 19.9 mEq/L (22-28); Analyzer IN Cardio ER; Base Excess -4.4 mEq/L (-2.0 to +3.0); Calcium, Ionized (venous) 1.11 mmol/L (1.16-1.32); Chloride (VBG) 98 mmol/L (98-106); Hematocrit-VBG 38 % (42.0-52.0); Hemoglobin (Hb) 12.9 g/dL (13.1-17.2); Potassium (VBG) 3.42 mmol/L (3.70-5.30); Sodium 136 mmol/L (133-146); pH (venous) 7.382 (7.32-7.43)
[2024-02-26] MEDS ORDERED: Diazepam 10 MG/2 ML SYRINGE ONE (07:59)
[2024-02-26 08:36] LABS: Anion Gap 17 mmol/L (10-20); BUN (Urea Nitrogen) Less than 4 mg/dL (8.4-25.7); Calc. Creatinine Clearance 0 mL/min (70-130); Calcium 8.3 mg/dL (7.8-10.44); Carbon Dioxide 21 mmol/L (23-31); Chloride 100 mmol/L (98-107); Estimated GFR 103; Glucose 140 mg/dL (80-115); Potassium 3.2 mmol/L (3.5-5.1); Sodium 135 mmol/L (136-145)
[2024-02-26] MEDS ORDERED: Potassium Chloride 20 MEQ TAB ONE (08:53)
[2024-02-26 09:11] LABS: Lactic Acid 5.29 mmol/L (0.5-2.2)
[2024-02-26] MEDS ORDERED: Lorazepam 2 MG/ML VIAL IM PRN (09:49)
[2024-02-26 09:53] LABS: Magnesium 1.5 mg/dL (1.6-2.6)
[2024-02-26] MEDS ORDERED: Dextrose 5% in Water 1,000 ML IV PRN (09:59)
[2024-02-26] MEDS ORDERED: Dextrose 50% Abboject 50 ML SYRINGE SLOW IVP PRN (09:59)
[2024-02-26] MEDS ORDERED: Glucagon 1 MG/ML KIT IM PRN (09:59)
[2024-02-26] MEDS ORDERED: Electrolyte Replacement Protocol 1 EACH FS SCH (10:00)
[2024-02-26 10:19] LABS: Troponin I 0.013 ng/mL (< 0.028)
[2024-02-26 10:34] LABS: Bilirubin, Direct 0.3 mg/dL (0.1-0.3); Magnesium 1.5 mg/dL (1.6-2.6); Phosphorus 2.8 mg/dL (2.3-4.7)
[2024-02-26 10:42] LABS: Troponin I 0.019 ng/mL (< 0.028)
[2024-02-26] MEDS ORDERED: Iopamidol 370 76% 100 ML VIAL ONE (11:27)
[2024-02-26] MEDS: Lorazepam 1 MG TAB PO SCH (11:30)
[2024-02-26] MEDS: traMADol HCl 50 MG TAB PO PRN (11:31)
[2024-02-26] MEDS: Amlodipine 5 MG TAB PO SCH (11:31)
[2024-02-26] MEDS: Pantoprazole 40 MG VIAL IVP SCH (11:32)
[2024-02-26] MEDS: Thiamine HCl 200 MG/2 ML VIAL SLOW IVP SCH ×2 (11:32→11:53)
[2024-02-26] MEDS: Sodium Chloride 0.9% 1,000 ML IV SCH (11:36)
[2024-02-26 11:51] VITALS: BMI 23.8
[2024-02-26 12:18] LABS: Amphetamine Not Detected (NotDetected); Barbiturates Screen Not Detected (NotDetected); Benzodiazepine Screen Not Detected (NotDetected); Cocaine Metabolite Screen Not Detected (NotDetected); Methadone Not Detected (NotDetected); Methamphetamine Not Detected (NotDetected); Opiate Screen Detected (NotDetected); Oxycodone Screen Not Detected (NotDetected); Phencyclidine (PCP) Not Detected (NotDetected); THC/Cannabinoid Screen Not Detected (NotDetected); Tricyclic Screen Not Detected (NotDetected)
[2024-02-26] MEDS: Calcium Carbonate 500 MG ChewTAB PO PRN (12:53)
[2024-02-26 14:38] LABS: Troponin I 0.018 ng/mL (< 0.028)
[2024-02-26] MEDS: Magnesium 2 GM/50 ML(in water) 2 GM in Premix 1 BAG IVPB SCH (14:55)
[2024-02-26] MEDS: Potassium Chloride 20 MEQ TAB PO SCH (14:55)
[2024-02-26 15:14] LABS: #Basophils 0.03 10x3/uL (0.0-0.2); %Basophils 0.7 % (0.0-1.0); %Eosinophils 2.4 % (0.0-10.0); %Lymphocytes 14.3 % (21.0-51.0); %Monocytes 9.2 % (0.0-10.0); %Neutrophils 73.2 % (42.0-75.0); Hemoglobin 11.5 g/dL (14.0-18.0); Mean Corpuscular HGB CONC 33.8 g/dL (32.0-36.0); Mean Corpuscular Hemoglobin 30.9 pg (27.0-31.0); Mean Corpuscular Volume 91.4 fL (78.0-98.0); Mean Platelet Volume 9.7 fL (7.4-10.4); Platelet Count 80 10x3/uL (130-400); RBC Distribution Width 17.2 % (11.5-14.5); Red Blood Cell (RBC) Count 3.72 mill/uL (4.70-6.10)
[2024-02-26 15:21] LABS: Lactic Acid 3.24 mmol/L (0.5-2.2)
[2024-02-26 15:29] LABS: ALT (SGPT) 110 U/L (8-55); AST (SGOT) 150 U/L (5-34); Alkaline Phosphatase 85 U/L (40-110); Anion Gap 13 mmol/L (10-20); BUN (Urea Nitrogen) 4 mg/dL (8.4-25.7); Bilirubin, Total 0.8 mg/dL (0.2-1.2); Calc. Creatinine Clearance 92 mL/min (70-130); Carbon Dioxide 23 mmol/L (23-31); Chloride 98 mmol/L (98-107); Estimated GFR 100; Glucose 309 mg/dL (80-115); Potassium 3.5 mmol/L (3.5-5.1); Sodium 130 mmol/L (136-145)
[2024-02-26] MEDS: Insulin Lispro 100 UNIT/ML 10 ML VIAL SC PRN (16:39)
[2024-02-26] MEDS: Ondansetron ODT 4 MG TAB PO PRN (16:39)
[2024-02-26] MEDS ORDERED: Famotidine/PF 20 mg/2ml Vial SLOW IVP SCH (21:00)
[2024-02-27 04:28] LABS: Magnesium 1.7 mg/dL (1.6-2.6)
[2024-02-27] MEDS: Levothyroxine Sodium 75 MCG TAB PO SCH (08:27)
[2024-02-27] MEDS: Multivit, Therapeutic 1 TAB PO SCH (08:28)
[2024-02-27] MEDS: Folic Acid 1 MG TAB PO SCH (08:28)
[2024-02-27] MEDS: Magnesium 2 GM/50 ML(in water) 2 GM in Premix 1 BAG IVPB SCH (08:29)
[2024-02-27] MEDS: Lorazepam 1 MG TAB PO PRN ×2 (10:24→14:03)
[2024-02-27 12:58] VITALS: BMI 23.8
[2024-02-27] MEDS ORDERED: Fioricet 325/50/40 mg Tablet PO PRN (13:33)
[2024-02-27] MEDS ORDERED: Prochlorperazine Edisylate 10 MG in Sodium Chloride 0.9% 50 ML IVPB PRN (13:33)
[2024-02-27] MEDS: Lactated Ringer's 1,000 ML IV SCH (14:02)
[2024-02-27] MEDS: Fioricet 325/50/40 mg Tablet PO PRN (14:25)
[2024-02-27] MEDS: Mag-Al 1200 mg/1200 mg/30 ML UDCUP PO SCH (15:48)
[2024-02-27] MEDS: Morphine 2 MG/ML VIAL SLOW IVP PRN (17:17)
[2024-02-27] MEDS: Dexmedetomidine In 0.9 % NaCl 100 ML IVPB SCH (18:39)
[2024-02-28 05:07] LABS: #Basophils Less than 0.03 10x3/uL (0.0-0.2); %Basophils 0.3 % (0.0-1.0); %Eosinophils 5.7 % (0.0-10.0); %Lymphocytes 20.1 % (21.0-51.0); %Monocytes 5.7 % (0.0-10.0); %Neutrophils 67.6 % (42.0-75.0); Hematocrit 35.7 % (42.0-52.0); Hemoglobin 12.1 g/dL (14.0-18.0); Mean Corpuscular HGB CONC 33.9 g/dL (32.0-36.0); Mean Corpuscular Hemoglobin 30.3 pg (27.0-31.0); Mean Corpuscular Volume 89.3 fL (78.0-98.0); Mean Platelet Volume 11.1 fL (7.4-10.4); Platelet Count 70 10x3/uL (130-400); RBC Distribution Width 16.8 % (11.5-14.5)
[2024-02-28 05:14] LABS: ALT (SGPT) 128 U/L (8-55); AST (SGOT) 155 U/L (5-34); Albumin 3.1 g/dL (3.4-4.8); Alkaline Phosphatase 85 U/L (40-110); Anion Gap 12 mmol/L (10-20); BUN (Urea Nitrogen) 4 mg/dL (8.4-25.7); Bilirubin, Total 0.8 mg/dL (0.2-1.2); Calc. Creatinine Clearance 102 mL/min (70-130); Calcium 8.4 mg/dL (7.8-10.44); Carbon Dioxide 27 mmol/L (23-31); Chloride 95 mmol/L (98-107); Estimated GFR 103; Globulin 3.3 g/dL (2.4-3.5); Glucose 136 mg/dL (80-115); Potassium 3.7 mmol/L (3.5-5.1); Protein, Total 6.4 g/dL (5.8-8.1); Sodium 130 mmol/L (136-145)
[2024-02-28] MEDS: FLU (Fluarix Triv) TS24-25(6MOS UP)/PF 45 MCG/0.5 ML Syringe IM ONE (08:17)
[2024-02-28] MEDS ORDERED: Lorazepam 1 MG TAB PO PRN (09:49)
[2024-02-28] MEDS: Lorazepam 0.5 MG TAB PO SCH (10:11)
[2024-02-29] MEDS: Thiamine 100 MG TAB PO SCH (09:41)
[2024-02-29] MEDS: Lorazepam 0.5 MG TAB PO PRN (09:50)
[2024-03-01 06:34] LABS: Mean Corpuscular HGB CONC 33.2 g/dL (32.0-36.0)
[2024-03-01 06:44] LABS: #Basophils Less than 0.03 10x3/uL (0.0-0.2); %Basophils 0.5 % (0.0-1.0); %Eosinophils 3.4 % (0.0-10.0); %Lymphocytes 17.6 % (21.0-51.0); %Monocytes 10.7 % (0.0-10.0); %Neutrophils 67.3 % (42.0-75.0); Hemoglobin 12.6 g/dL (14.0-18.0); Mean Corpuscular Hemoglobin 30.7 pg (27.0-31.0); Mean Corpuscular Volume 92.5 fL (78.0-98.0); Mean Platelet Volume 10.6 fL (7.4-10.4); Platelet Count 71 10x3/uL (130-400); RBC Distribution Width 17.4 % (11.5-14.5); Red Blood Cell (RBC) Count 4.11 mill/uL (4.70-6.10)
[2024-03-01 06:53] LABS: ALT (SGPT) 134 U/L (8-55); AST (SGOT) 109 U/L (5-34); Albumin 3.3 g/dL (3.4-4.8); Alkaline Phosphatase 96 U/L (40-110); Anion Gap 14 mmol/L (10-20); BUN (Urea Nitrogen) 5 mg/dL (8.4-25.7); Bilirubin, Total 0.7 mg/dL (0.2-1.2); Calc. Creatinine Clearance 95 mL/min (70-130); Calcium 8.5 mg/dL (7.8-10.44); Carbon Dioxide 20 mmol/L (23-31); Chloride 102 mmol/L (98-107); Estimated GFR 101; Globulin 3.4 g/dL (2.4-3.5); Glucose 166 mg/dL (80-115); Potassium 4.2 mmol/L (3.5-5.1); Protein, Total 6.7 g/dL (5.8-8.1); Sodium 132 mmol/L (136-145)
[2024-03-01] MEDS: Magnesium 2 GM/50 ML(in water) 2 GM in Premix 1 BAG IVPB SCH (11:54)
[2024-03-02] MEDS: Magnesium 2 GM/50 ML(in water) 2 GM in Premix 1 BAG IVPB SCH (09:36)
[2024-03-02 09:48] LABS: Sodium 137 mmol/L (136-145)
[2024-03-02] MEDS: Insulin Lispro 100 UNIT/ML 10 ML VIAL SC PRN (20:46)
[2024-03-02] MEDS: Zolpidem Tartrate 5 MG TAB PO PRN (22:56)
[2024-03-03 08:36] VITALS: BP 131/87; TEMP 98.4
== END 2024-03-03 12:55 | disposition home or self-care (01) | DRG 897 ==
LOC: ERS 02:42 → IMCU/EMU 08:55 → T4-A 02-29 12:40
PROVIDERS: ADMIT Internal Medicine; ATTEND Internal Medicine
PROC: HZ2ZZZZ Detoxification Services for Substance Abuse Treatment (ICD-10-PCS; principal; 2024-02-26)
DX: F10.131 Alcohol abuse with withdrawal delirium (principal); Z59.00 Homelessness unspecified; E87.1 Hypo-osmolality and hyponatremia; D61.818 Other pancytopenia; E11.9 Type 2 diabetes mellitus without complications; N40.0 Benign prostatic hyperplasia without lower urinary tract symptoms; E03.9 Hypothyroidism, unspecified; F17.210 Nicotine dependence, cigarettes, uncomplicated; I10 Essential (primary) hypertension
CPT/HCPCS: 36415; 36416; 74177; 74183; 80053; 80306; 80307; 82010; 82140; 82248; 82306; 82378; 82805; 83605; 83690; 83735; 84100; 84134; 84295; 84484; 85025; 86301; 86304; 90656; 93005; 96374; 96375; J1815; J2272; J2405; J2470; J3360; J3411; J3475; J7030; J7120; Q0162; Q9967